=== PATIENT | female | born 1935 | race Caucasian/White ===

== ENCOUNTER 2017-06-14 17:37 | Emergency (ER) | payer MEDICARE, BC ==
[2017-06-14] MEDS ORDERED: NS 0.9% 1000 ML* 1,000 ML IV ONE (18:18)
--- NOTE | 2017-06-14 18:28 | ED ---
Back Pain - HPI Summary HPI Summary: Pt. is an 81 y.o female who presents to the ER for increased low back pain, lower abd. pain and constipation. Pt. states that her was recently moved to a [facility] and she believes she injured her low back caring for him about 2 weeks ago. Pt. saw her PCP and had an outpt. xray which showed degenerative changes. Pt. also notes she has not had a BM in 2 weeks. She has tried stool softeners and laxatives. She also notes increasing lower abd. pain as well as decreased urination. She notes that she has had a very poor appetite over the last several weeks. She denies fever, chills, CP, SOB, N/V, cough or recent sickness. She was rx tramadol by PCP several days ago which improves pain temporarily. She denies radicular pain to legs, numbness, tingling or weakness to legs. Symptoms are moderate in severity. - History of Current Complaint Stated Complaint: BACK PAIN Time Seen by Provider: 06/14/17 17:54 Hx Obtained From: Patient, Family/Extracorporeal Circulation Specialist Onset/Duration: Gradual Onset Onset/Duration: Started Weeks Ago Timing: Intermittent Back Pain Location: Is Discrete @ - Low back and does not radiate Severity Currently: Moderate Character: Sharp, Throbbing Aggravating Symptom(s): Movement Alleviating Symptom(s): Other - Ultram Associated Signs And Symptoms: Positive: Abdominal Pain - Risk Factors Cauda Equina Risk Factors: Negative Epidural Abscess Risk Factors: Negative - Allergies/Home Medications Allergies/Adverse Reactions: Allergies Allergy/AdvReac Type Severity Reaction Status Date / Time clarithromycin [From Biaxin] Allergy Unknown Verified 06/14/17 23:07 Reaction Details Home Medications: Home Medications Aspirin Low Dose CHEW TAB* [Aspirin Low Dose TAB*] 81 mg PO DAILY 06/14/17 [ History Confirmed 06/14/17] Budesonide/Formote 160/4.5(NF) [Symbicort 160/4.5 (NF)] 2 puff INH BID PRN 06/14 [History Confirmed 06/14/17] C,E,Zinc,Copper 11/Eqakd3m/Lut [Ocuvite Adult 50 Plus Softgel] 1 each PO DAILY 06/14/17 [History Confirmed 06/14/17] Diclofenac Sodium EC TAB* [Voltaren EC TAB*] 75 mg PO BID 06/14/17 [History Confirmed 06/14/17] Lisinopril/HCTZ 20/12.5(NF) [Zestoretic 20/12.5(NF)] 1 tab PO DAILY 06/14/17 [ History Confirmed 06/14/17] traMADol TAB* [Ultram*] 50 mg PO Q6HR PRN MDD 4 tablets 06/14/17 [History Confirmed 06/14/17] PMH/Surg Hx/FS Hx/Imm Hx Cardiovascular History: Reports: Hx Hypertension - ON MEDS Respiratory History: Reports: Hx Chronic Obstructive Pulmonary Disease (COPD), Other Respiratory Problems/Disorders - SOB WITH TOO MUCH EXERTION, STAIR CLIMBING, EXTRA WALKING Musculoskeletal History: Reports: Hx Arthritis - HANDS Sensory History: Reports: Hx Cataracts, Hx Contacts or Glasses - INST FOR GLASSES Denies: Hx Hearing Aid Opthamlomology History: Reports: Hx Cataracts, Hx Contacts or Glasses - INST FOR GLASSES - Surgical History Surgery Procedure, Year, and Place: 1963 [facility] [place]. [facility]. RIGHT CATARACT EXTRACTION TO THE LEFT EYE WITH AN IOL IMPLANT, [facility] Hx Anesthesia Reactions: No Infectious Disease History: Denies: Traveled Outside the [place] in Last 30 Days - Social History Substance Use Type: Reports: None Review of Systems Constitutional: Negative ENT: Negative Cardiovascular: Negative Respiratory: Negative Positive: Abdominal Pain, Other - Constipation Genitourinary: Other - Decreased urination Musculoskeletal: Other - Low back pain All Other Systems Reviewed And Are Negative: Yes Physical Exam Triage Information Reviewed: Yes Vital Signs Reviewed: Yes Appearance: Positive: Well-Appearing Skin: Positive: Warm, Dry Head/Face: Positive: Normal Head/Face Inspection Eyes: Positive: Normal Abdomen Description: Positive: CVA Tenderness (R), CVA Tenderness (L), Other: - Abd. is soft with diffuse tenderness to the lower quadrants and suprapubic region. No rebound tenderness or guarding. Musculoskeletal: Positive: Other - Low midline lumbar tenderness to palpation. Full strength in bilateral LEs with flexion and dorsiflexion of great toes. No neurosensory deficits. Neurological: Positive: Normal Psychiatric: Positive: Normal Diagnostics - Laboratory Result Diagrams: 06/14/17 18:48 06/14/17 22:37 Lab Statement: Any lab studies that have been ordered have been reviewed, and results considered in the medical decision making process. Back Pain Course/Dx - Course Course Of Treatment: Pt. presenting with ongoing low back pain as well as constipation and lower abd. pain. She is afebrile with stable vital signs. Pt. initially declines pain medication. Labs and imaging ordered. She has no neuro deficits on exam or evidence of cauda equina syndrome. CBC shows a leukocytosis of 15k. CMP shows low Na of 122. Pt. was given a L of NSS. CT scans shows acute vs subacute T12 compression fx, constipation with significant distended bowels, no obstruction, reading per radiology. On re-exam pt.'s pain has returned and she was given tylenol. Results were discussed. Family is concerned with pt's pain and her living alone. Given pain and low na I did speak with hospitalist for possible admission, Dr. Cardoso, who does not feel pt. meets inpt. criteria at this time. He recommends repeat BMP after fluids. Case was discussed with ER attending, Dr. Lowe. Plan will be to evacuate pt.'s bowels with soap suds enema and recheck sodium. Family is comfortable with this plan. Soap suds enema resulted in evacuation of large stool. Repeat sodium has improved to 126. Pt. dc home with family. Will need to call PCP tomorrow for a close apt. Advised to take an OTC stool softener while taking ultram. To return to ER if sxs change or worsen. - Diagnoses Differential Diagnosis/HQI/PQRI: Positive: Arthritis, Fracture, Herniated Disc, Strain, Other - Constipation, bowel obstruction, urolithiasis Provider Diagnoses: Constipation, Low back pain, Hyponatremia Provider Diagnoses: (Ruled Out): Hyponatremia syndrome Discharge - Sign-Out/Discharge Documenting (check all that apply): Discharge - Discharge Plan Condition: Stable Disposition: HOME Patient Education Materials: Constipation (ED), Hyponatremia (ED), Back Pain ( ED) Referrals: Daniela Knapp MD [Primary Care Provider] - Additional Instructions: Call PCP tomorrow for a close follow up appointment Continue home medications as directed Take an over the counter stool softener as directed Return to ER if symptoms change or worsen - Billing Disposition and Condition Condition: STABLE Disposition: HOME
[2017-06-14 19:02] LABS: ABS Basophils 0.1 10^3/ul (0-0.2); ABS Eosinophils 0.2 10^3/ul (0-0.6); ABS Lymphocytes 2.7 10^3/ul (1.0-4.8); ABS Monocytes 1.2 10^3/ul (0-0.8); ABS Neutrophils 11.7 10^3/ul (1.5-7.7); ABS Nucleated RBC 0 10^3/ul; Hematocrit 33 % (35-47); Hemoglobin 11.2 g/dl (12.0-16.0); Lymphocyte % 16.8 % (25-47); Mean Corpuscular HGB Conc 34 g/dl (31-36); Mean Corpuscular Hemoglobin 33 pg (27-31); Mean Corpuscular Volume 97 fL (80-97); Mean Platelet Volume 6.9 um3 (7.4-10.4); Nucleated Red Blood Cells % 0; Platelet Count 479 10^3/ul (150-450); Red Blood Count 3.41 10^6/ul (4.0-5.4); Red Cell Distribution Width 14 % (10.5-15); White Blood Count 15.8 10^3/ul (3.5-10.8)
[2017-06-14 19:19] LABS: EGFR Non-African American 73.2 (>60)
--- NOTE | 2017-06-14 19:57 | RAD ---
CLINICAL HISTORY: Constipation and back pain. Relevant surgical history includes appendectomy. COMPARISON: None TECHNIQUE: Noncontrast CT examination of the abdomen and pelvis from the lung bases through the initial tuberosities. Format of the lumbar spine were specifically created and independently reviewed. FINDINGS: VISUALIZED LUNG BASES: The visualized lungs exhibit diffuse centrilobular emphysematous changes. There is asymmetric elevation of the left hemidiaphragm. ABDOMEN AND PELVIS: Evaluation of the solid organs and vasculature is limited without intravenous contrast. The liver, spleen, pancreas and right adrenal gland are grossly normal in appearance. There is a fluid density cyst at the left adrenal gland measuring up to 3.4 cm in greatest cephalocaudal dimension. There is hyperattenuating material in the dependent gallbladder possibly representing stones and/or gallbladder sludge. The kidneys are normal in appearance without focal mass, calcification or signs of hydronephrosis. Evaluation of the gastrointestinal tract is limited without oral contrast. Consistent with the patient's surgical history, the appendix is not seen. The cecum is dilated up to 7 cm in diameter and is filled with gas and stool. There is gas and stool throughout the length of the colon though the more distal colon is not pathologically dilated. There are diverticula at the distal colon without focal inflammatory changes consistent with diverticulitis. There is no gross retroperitoneal or mesenteric lymphadenopathy. Along the left of midline posterior margin of the uterus there is a fluid focus measuring 2.1 x 4.2 cm in the axial plane either representing fluid in the cul-de-sac or adnexal structure. There is coarse atherosclerotic calcification of the abdominal aorta extending into the iliac arteries. Coarse calcification is seen at the bilateral common femoral arteries. There is likely high-grade stenosis at the left common femoral artery. There is evidence of healed fracture at the medial left pubic bone. Degenerative changes of the lower thoracic and lumbar spine include loss of intervertebral disc height. There is compression deformity of the T12 vertebral body with a small degree of retropulsion of fragments abutting the thecal sac (sagittal image 30 of 64). IMPRESSION: 1. The gas and stool-filled colon does not exhibit focal obstruction but the cecum is mildly dilated up to 7 cm in diameter. In the setting of chronic narcotic pain medicines conception bowel dysmotility should be considered. 2. Age indeterminate compression fracture of the T12 vertebral body with a small degree of retropulsion of fragments abutting the thecal sac. 3. Advanced calcified atherosclerosis of the visualized iliofemoral arteries. Please correlate to signs and symptoms of arterial insufficiency. 4. There is either fluid in the cul-de-sac or adnexal cyst at the left of midline adnexa. This is considered abnormal in a woman of this age. Superior characterization can be made with pelvic ultrasound on a nonemergent basis. 5. Chronic, degenerative and iatrogenic findings described in the body the report.
[2017-06-14] MEDS ORDERED: Acetaminophen TAB* 325 MG PO ONE (21:20)
[2017-06-14 23:12] LABS: EGFR Non-African American 74.4 (>60)
[2017-06-14 23:25] VITALS: BP 119/47
== END 2017-06-14 23:26 | disposition home or self-care (01) ==
LOC: ED 17:37
DX: M54.5 Low back pain (principal); K59.00 Constipation, unspecified; E87.1 Hypo-osmolality and hyponatremia; I10 Essential (primary) hypertension; Z79.899 Other long term (current) drug therapy
CPT/HCPCS: 36415; 72131; 74176; 80048; 80053; 85025; 96360; 99283

== ENCOUNTER 2017-07-09 11:22 | Inpatient (IN) | payer MEDICARE, BC ==
[2017-07-09] MEDS ORDERED: Acetaminophen TAB* 325 MG PO ONE (12:18)
[2017-07-09 12:58] LABS: ABS Basophils 0.1 10^3/ul (0-0.2); ABS Eosinophils 0 10^3/ul (0-0.6); ABS Lymphocytes 2.1 10^3/ul (1.0-4.8); ABS Monocytes 0.6 10^3/ul (0-0.8); ABS Neutrophils 7.8 10^3/ul (1.5-7.7); ABS Nucleated RBC 0 10^3/ul; Eosinophil % 0.4 % (0-6); Hematocrit 37 % (35-47); Hemoglobin 12.3 g/dl (12.0-16.0); Lymphocyte % 19.6 % (25-47); Mean Corpuscular HGB Conc 33 g/dl (31-36); Mean Corpuscular Hemoglobin 33 pg (27-31); Mean Corpuscular Volume 99 fL (80-97); Mean Platelet Volume 6.6 um3 (7.4-10.4); Nucleated Red Blood Cells % 0; Platelet Count 478 10^3/ul (150-450); Red Blood Count 3.75 10^6/ul (4.0-5.4); Red Cell Distribution Width 16 % (10.5-15); White Blood Count 10.7 10^3/ul (3.5-10.8)
[2017-07-09 13:03] LABS: INR 0.86 (0.77-1.02)
--- NOTE | 2017-07-09 13:09 | RAD ---
Indication: Back pain, right foot drop. CT of the lumbar spine was obtained in the axial plane. Sagittal and coronal reconstructed images were obtained. Comparison is made with previous exam dated June 14, 2017. There is diffuse osteopenia of the lumbar spine. The vertebral bodies from L1 through L5. This placement L1-L2, L2-L3 and L4-L5, unchanged from previous exam the visualized and maybe some spinal stenosis at L4-L5 osteophyte hypertrophy. No foraminal stenosis at L5 T12 vertebra there is vertebral plana noted with complete flattening the T12 vertebra. Retropulsed fragment noted on the thecal sac. This appears to be progressive since previous exam and this now occupies approximately 25% of spinal canal this level. IMPRESSION: Compression fracture T12 with retropulsed fragment as identified previously now occupies 25% spinal canal. This was present on June 14, 2017 although there may be increased retropulsion. Diffuse osteopenia is noted with suggestion of mild spinal stenosis at L4-L5.
[2017-07-09] MEDS ORDERED: Morphine VIAL* 4 MG/ML VIAL (1 ml vial) IV ONE ×2 (13:55→14:34)
[2017-07-09] MEDS ORDERED: Ondansetron INJ* 2 MG/ML VIAL ONE (14:17)
[2017-07-09] MEDS ORDERED: NS 0.9% 1000 ML*IV.FLUID IV ONE (14:20)
[2017-07-09] MEDS ORDERED: Ondansetron INJ* 2 MG/ML VIAL IV ONE (14:20)
--- NOTE | 2017-07-09 15:51 | ED ---
Bruce Guaman Stephanie, scribed for Ashley Walters MD on 07/09/17 at 1209 . Lower Extremity - HPI Summary HPI Summary: The pt is an 81 y/o F presenting to the ED with c/o R foot weakness that was noticed yesterday by her daughter who describes pt "dragging her right foot" on 07/08/17. Symptoms include lower back pain that began on May 29, 2017. The pt states she felt her upper back pop on May 29 2017 when she was helping care for her who is now at [facility]. The pt states her back pain initially was at the top of her back but has traveled to her lower back and feels it radiate to her LE bilaterally but more on the R LE. The pt walked yesterday and per daughter in law, the pts family is concerned the pt has a foot drop. Her pain is rated as a 10 in severity. Pt does not take O2 at home although it was prescribed by her PCP. O2 stat of 85 % on room air with good wave form, noted after pt was undressed for exam and moving on the stretcher on initial assessment. - History of Current Complaint Chief Complaint: EDBackInjuryPain Stated Complaint: BACK PAIN Time Seen by Provider: 07/09/17 11:32 Hx Obtained From: Patient, Family/Clinical Instructor - daughters (2), [id number] Mechanism Of Injury: Other - no known recent injury or fall. Pt was lifting/ assisting/moving her on 05/29/17 and felt a pop in her mid back. Onset of Pain: Immediate Onset/Duration: Worse Since - last night with new dragging of right foot Severity Initially: Moderate Severity Currently: Severe Pain Intensity: 9 Pain Scale Used: 0-10 Numeric Timing: Constant Location: Is Discrete @ - low lumbar pain, radiating to right leg Character Of Pain: Aching Associated Signs And Symptoms: Positive: Weakness - R foot Aggravating Factor(s): Nothing Alleviating Factor(s): Rest Able to Bear Weight: Yes - Allergies/Home Medications Allergies/Adverse Reactions: Allergies Allergy/AdvReac Type Severity Reaction Status Date / Time clarithromycin [From Biaxin] Allergy Unknown Verified 06/20/17 10:51 Reaction Details Home Medications: Home Medications Acetaminophen TAB* [Tylenol TAB*] 1,000 mg PO QID 07/09/17 [History Confirmed ] Ibuprofen TAB* [Advil TAB*] 400 mg PO QID 07/09/17 [History Confirmed 07/09/17] PMH/Surg Hx/FS Hx/Imm Hx Endocrine/Hematology History: Denies: Hx Diabetes Cardiovascular History: Reports: Hx Hypertension Denies: Hx Pacemaker/ICD Respiratory History: Reports: Hx Chronic Obstructive Pulmonary Disease (COPD) History: Denies: Hx Renal Disease Musculoskeletal History: Reports: Hx Arthritis - HANDS, Other Musculoskeletal History - compression fx T12 on CT 06/14/17 Sensory History: Reports: Hx Cataracts, Hx Contacts or Glasses - INST FOR GLASSES Denies: Hx Hearing Aid Opthamlomology History: Reports: Hx Cataracts, Hx Contacts or Glasses - INST FOR GLASSES Psychiatric History: Denies: Hx Panic Disorder - Surgical History Surgery Procedure, Year, and Place: 1962 [facility] [place]. 1969 [employer]. RIGHT CATARACT EXTRACTION TO THE LEFT EYE WITH AN IOL IMPLANT, [facility] Hx Anesthesia Reactions: No Infectious Disease History: No Infectious Disease History: Denies: Traveled Outside the US in Last 30 Days - Family History Known Family History: Positive: Other - breast cancer Negative: Renal Disease - Social History Occupation: Retired Lives: With Family Alcohol Use: None Substance Use Type: Reports: None Hx Tobacco Use: Yes Smoking Status (MU): Former Smoker Have You Smoked in the Last Year: No Review of Systems Negative: Fever Cardiovascular: Negative Respiratory: Negative Gastrointestinal: Negative Positive: other - difficulty starting her stream . Negative: incontinence Positive: Other - lower back pain Skin: Negative Positive: Weakness - R foot Psychological: Normal All Other Systems Reviewed And Are Negative: Yes Physical Exam - Summary Physical Exam Summary: Appearance: Ill-appearing, moderate pain distress, Well-nourished, SOB with movement Skin: Warm, purple discoloration of all 5 toes distally on L foot. Head: Normal Head/Face inspection Eyes: Conjunctiva clear ENT: Normal inspection Neck: Supple, no nodes, no JVD. Respiratory: Lungs clear, Normal breath sounds, no respiratory distress Cardio: RRR, No murmur, pulses normal, brisk capillary refill Abdomen: soft, nontender Bowel sounds: present Musculoskeletal: Strength Intact/ ROM intact. No calf tenderness. No edema. Superficial excoriation not representing spinal injection at R lumbar area, no bruising or step off. Spinal tenderness in lumbar area Psychological: Normal Neuro: Alert, muscle tone normal, no focal deficit, moves all extremities well. she has dorsiflexion 4/5 on R. Absent reflexes R knee and R ankle, sensation intact. Triage Information Reviewed: Yes Vital Signs On Initial Exam: Initial Vitals Temp Pulse Resp BP Pulse Ox 98.3 F 77 16 147/91 92 07/09/17 11:30 07/09/17 11:30 07/09/17 11:30 07/09/17 11:30 07/09/17 11:30 Vital Signs Reviewed: Yes Diagnostics - Vital Signs Vital Signs Temp Pulse Resp BP Pulse Ox 07/09/17 11:30 98.3 F 77 16 147/91 92 - Laboratory Lab Results: Lab Results 07/09/17 07/09/17 07/09/17 Range/Units 12:42 12:42 12:42 WBC 10.7 (3.5-10.8) 10^3/ul RBC 3.75 L (4.0-5.4) 10^6/ul Hgb 12.3 (12.0-16.0) g/dl Hct 37 (35-47) % MCV 99 H (80-97) fL MCH 33 H (27-31) pg MCHC 33 (31-36) g/dl RDW 16 H (10.5-15) % Plt Count 478 H (150-450) 10^3/ul MPV 6.6 L (7.4-10.4) um3 Neut % (Auto) 73.2 (38-83) % Lymph % (Auto) 19.6 L (25-47) % Bland % (Auto) 5.6 (0-7) % Eos % (Auto) 0.4 (0-6) % Baso % (Auto) 1.2 (0-2) % Absolute Neuts (auto) 7.8 H (1.5-7.7) 10^3/ul Absolute Lymphs (auto) 2.1 (1.0-4.8) 10^3/ul Absolute Monos (auto) 0.6 (0-0.8) 10^3/ul Absolute Eos (auto) 0 (0-0.6) 10^3/ul Absolute Basos (auto) 0.1 (0-0.2) 10^3/ul Absolute Nucleated RBC 0 10^3/ul Nucleated RBC % 0 INR (Anticoag Therapy) 0.86 (0.77-1.02) Sodium 133 L (139-145) mmol/L Potassium 4.5 (3.5-5.0) mmol/L Chloride 99 L (101-111) mmol/L Carbon Dioxide 25 (22-32) mmol/L Anion Gap 9 (2-11) mmol/L BUN 34 H (6-24) mg/dL Creatinine 1.04 H (0.51-0.95) mg/dL Est GFR ( Amer) 65.6 (>60) Est GFR (Non-Af Amer) 51.0 (>60) BUN/Creatinine Ratio 32.7 H (8-20) Glucose 105 H (70-100) mg/dL Calcium 9.5 (8.6-10.3) mg/dL Magnesium 2.2 (1.9-2.7) mg/dL Total Bilirubin 0.30 (0.2-1.0) mg/dL AST 16 (13-39) U/L ALT 12 (7-52) U/L Alkaline Phosphatase 121 H (34-104) U/L C-Reactive Protein 5.82 H (< 5.00) mg/L Total Protein 7.0 (6.4-8.9) g/dL Albumin 4.2 (3.2-5.2) g/dL Globulin 2.8 (2-4) g/dL Albumin/Globulin Ratio 1.5 (1-3) Result Diagrams: 07/09/17 12:42 07/09/17 12:42 Lab Statement: Any lab studies that have been ordered have been reviewed, and results considered in the medical decision making process. - CT Lumbar Spine CT Interpretation: Positive (See Comments) CT Interpretation Completed By: Radiologist - Compression fracture T12 with retropulsed fragment as identified previously now occupies 25% spinal canal. This was present on June 14, 2017 although there may be increased retropulsion. Diffuse osteopenia is noted with suggestion of mild spinal stenosis at L4-L5. ED physician has reviewed this report. Re-Evaluation - Re-Evaluation First Eval Re-Evaluation Time: 13:50 Change: Worse Comment: The pt is having difficulty urinating. ED physician spoke to Lyn ESPINOSA for Dr. Melara who recommends admission. Bladder scan shows 200cc. Pt straight cath'd for UA and bladder emptying. Lower Extremity Course/Dx - Course Course Of Treatment: At 12:15, ED physician spoke to Dr. Peterson about the care of the pt. ED physician spoke to Lyn ESPINOSA at 13:[address] Melara to get in touch with ED physician. At 13:50, ED physician spoke to Lyn ESPINOSA who recommends admission. Dr. Melara will complete evaluation and would consider pt for surgery if indicated. Pt does not meet criteria for emergency MRI at this time. Does not have symptoms of cauda equina syndrome or risk factors for epidural abscess. Dr. Mcguire accepts pt for admission 14:00. - Diagnoses Differential Diagnosis/HQI/PQRI: Positive: Sprain, Strain, Other - herniated disc Provider Diagnoses: T12 compression fracture, COPD exacerbation - Physician Notifications Discussed Care Of Patient With: Tj Melara - admit for pain control and further evaluation Time Discussed With Above Provider: 13:50 Instructed by Provider To: Admit As Inpatient Discharge - Sign-Out/Discharge Documenting (check all that apply): Discharge - admit - Discharge Plan Condition: Stable Disposition: ADMITTED TO [facility] - Billing Disposition and Condition Condition: STABLE Disposition: [facility] [place] The documentation as recorded by the Bruce austin Stephanie accurately reflects the service I personally performed and the decisions made by , Ashley Walters MD.
--- NOTE | 2017-07-09 16:06 | ADMNOTE ---
Subjective Date of Service: 07/09/17 Interval History: ADMISSION HISTORY AND PHYSICAL EXAM; Allergies Allergy/AdvReac Type Severity Reaction Status Date / Time clarithromycin [From Biaxin] Allergy Unknown Verified 06/20/17 10:51 Reaction Details Home Medications Medication Instructions Recorded Confirmed Type Albuterol HFA INHALER* [Proair HFA 2 puff PO DAILY PRN 07/11/12 07/09/17 History Inhaler*] Atenolol TAB* [Tenormin TAB*] 50 mg PO DAILY 07/11/12 07/09/17 History Aspirin 81 mg CHEW TAB* [Aspirin 81 mg PO DAILY 06/14/17 07/09/17 History Low Dose TAB*] Budesonide/Formote 160/4.5(NF) 2 puff INH BID PRN 06/14/17 07/09/17 History [Symbicort 160/4.5 (NF)] C,E,Zinc,Copper 11/Dbhcb7d/Lut 1 each PO DAILY 06/14/17 07/09/17 History [Ocuvite Adult 50 Plus Softgel] Diclofenac Sodium EC TAB* 75 mg PO BID 06/14/17 07/09/17 History [Voltaren EC TAB*] Lisinopril/HCTZ 20/12.5(NF) 1 tab PO DAILY 06/14/17 07/09/17 History [Zestoretic 20/12.5(NF)] traMADol TAB* [Ultram*] 50 mg PO Q6HR PRN MDD 4 tablets 06/14/17 07/09/17 History Acetaminophen TAB* [Tylenol TAB*] 1,000 mg PO QID 07/09/17 07/09/17 History Ibuprofen TAB* [Advil TAB*] 400 mg PO QID 07/09/17 07/09/17 History HPI: The patient injured her back in 05/2017 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 He was placed in [place]. She had a CT in 05/2017, and was given tramadol. She got very constipated from it. She had another injury last week and the pain was worse and radiated down her R leg. This AM the pain was level 10. Family History: Findings - F had leukemia, M age 83 [place]. Social History: Findings - Lives alone. Quit smoking 16 yrs ago. SDM is her daughter Daniela Winchester. No alcohol abuse. Past Medical History: Findings - 5 children. Appy, BL cataract surgery, thyroid surgery 50 yrs ago, bunion surgery. COPD, HTN. Review of Systems - Measurements Intake and Output: Intake and Output Last 24 Hours 07/07/17 07/08/17 07/09/17 07/10/17 06:59 06:59 06:59 06:59 Intake Total 999 Balance 999 Intake: IV Fluids 999 - Review of Systems Constitutional Symptoms: Negative: Weight Gain, Weight Loss, Weakness, Fatigue, Fever, Night Sweats, Unexplained Falls, Other Dermatology: Positive: Normal HEENT: Positive: Normal Eyes: Positive: Other - macular degeneration Thyroid: Positive: Other - hx thyroid surgery 50 yrs ago Pulmonary: Positive: COPD Cardiology: Positive: Normal Gastroenterology: Positive: Normal Genital - Urinary: Positive: Normal Musculoskeletal: Positive: Low Back Pain Hematologic/Lymphatic: Positive: Anemia Neurology: Positive: Change in Walking Psychiatry: Positive: Normal Allergic/Immunologic: Negative: Hx Anaphylaxis, Hx Angioedema, Hx Environmental, Hx Seasonal, Athsma, Hx HIV, Immunocompromise, Swollen Glands LymphNodes, Other Objective Vital Signs - 8 hr 07/09/17 07/09/17 07/09/17 14:30 14:56 15:32 Temperature 98.3 F 97.9 F Pulse Rate 72 72 79 Respiratory 16 18 Rate Blood Pressure 120/74 120/74 136/49 (mmHg) O2 Sat by Pulse 98 98 100 Oximetry Oxygen Devices in Use Now: Nasal Cannula Appearance: Alert, back brace in place. In fair spirits. Looks uncomfortable. Eyes: No Scleral Icterus Ears/Nose/Mouth/Throat: Clear Oropharnyx, Mucous Membranes Moist Respiratory: Symmetrical Chest Expansion and Respiratory Effort, - - diminished BS BL Cardiovascular: RRR, No Edema, - - 1-2/6 systolic murmur across precoridum Extremities: No Edema, No Clubbing, Cyanosis, - Skin: No Rash or Ulcers, No Nodules or Sclerosis, - Neurological: Alert and Oriented x 3, NL Sensation - mild R foot weakness Result Diagrams: 07/09/17 12:42 07/09/17 12:42 Additional Lab and Data: Lab Results 07/09/17 07/09/17 07/09/17 Range/Units 12:42 12:42 12:42 WBC 10.7 (3.5-10.8) 10^3/ul RBC 3.75 L (4.0-5.4) 10^6/ul Hgb 12.3 (12.0-16.0) g/dl Hct 37 (35-47) % MCV 99 H (80-97) fL MCH 33 H (27-31) pg MCHC 33 (31-36) g/dl RDW 16 H (10.5-15) % Plt Count 478 H (150-450) 10^3/ul MPV 6.6 L (7.4-10.4) um3 Neut % (Auto) 73.2 (38-83) % Lymph % (Auto) 19.6 L (25-47) % [place] % (Auto) 5.6 (0-7) % Eos % (Auto) 0.4 (0-6) % Baso % (Auto) 1.2 (0-2) % Absolute Neuts (auto) 7.8 H (1.5-7.7) 10^3/ul Absolute Lymphs (auto) 2.1 (1.0-4.8) 10^3/ul Absolute Monos (auto) 0.6 (0-0.8) 10^3/ul Absolute Eos (auto) 0 (0-0.6) 10^3/ul Absolute Basos (auto) 0.1 (0-0.2) 10^3/ul Absolute Nucleated RBC 0 10^3/ul Nucleated RBC % 0 INR (Anticoag Therapy) 0.86 (0.77-1.02) Sodium 133 L (139-145) mmol/L Potassium 4.5 (3.5-5.0) mmol/L Chloride 99 L (101-111) mmol/L Carbon Dioxide 25 (22-32) mmol/L Anion Gap 9 (2-11) mmol/L BUN 34 H (6-24) mg/dL Creatinine 1.04 H (0.51-0.95) mg/dL Est GFR ( Amer) 65.6 (>60) Est GFR (Non-Af Amer) 51.0 (>60) BUN/Creatinine Ratio 32.7 H (8-20) Glucose 105 H (70-100) mg/dL Calcium 9.5 (8.6-10.3) mg/dL Magnesium 2.2 (1.9-2.7) mg/dL Total Bilirubin 0.30 (0.2-1.0) mg/dL AST 16 (13-39) U/L ALT 12 (7-52) U/L Alkaline Phosphatase 121 H (34-104) U/L C-Reactive Protein 5.82 H (< 5.00) mg/L Total Protein 7.0 (6.4-8.9) g/dL Albumin 4.2 (3.2-5.2) g/dL Globulin 2.8 (2-4) g/dL Albumin/Globulin Ratio 1.5 (1-3) Assess/Plan/Problems-Billing Assessment: - Patient Problems (1) COPD (chronic obstructive pulmonary disease) Current Visit: Yes Status: Acute Code(s): J44.9 - CHRONIC OBSTRUCTIVE PULMONARY DISEASE, UNSPECIFIED SNOMED Code(s): 13441222 Comment: Moderate clinically. Duoneb PRN. (2) HTN (hypertension) Current Visit: Yes Status: Acute Code(s): I10 - ESSENTIAL (PRIMARY) HYPERTENSION SNOMED Code(s): 20903870 Comment: Hold thiazide due to hyponatremia. Smaller dose of lisinopril ordered. (3) Hyponatremia Current Visit: Yes Status: Acute Code(s): E87.1 - HYPO-OSMOLALITY AND HYPONATREMIA SNOMED Code(s): 75503675 Comment: Hold thiazide. Should correct itself in a few days. (4) Heart murmur Current Visit: Yes Status: Acute Code(s): R01.1 - CARDIAC MURMUR, UNSPECIFIED SNOMED Code(s): 20624788 Comment: Pt had echo at [place] 6-9 months ago. Order to request record from Dr. Knapp's office entered. (5) T12 vertebral fracture Current Visit: Yes Status: Acute Code(s): S22.089A - UNSP FRACTURE OF T11- T12 VERTEBRA, INIT FOR CLOS FX SNOMED Code(s): 014040717 Comment: Management per Dr. Melara. Vit D level ordered. (6) Constipation Current Visit: Yes Status: Acute Code(s): K59.00 - CONSTIPATION, UNSPECIFIED SNOMED Code(s): 80220352 Comment: She became very constipated when tramadol was prescribed for her back pain. I am doubling her home polyethylene glycol dose.
[2017-07-09] MEDS ORDERED: Albuterol/Ipratropium NEB.SOL* Albuterol 2.5 MG/Ipratropium 0.5 MG 3 ML INH PRN (16:30)
--- NOTE | 2017-07-09 16:40 | CONSULT ---
Consult Consult: Neurosurgery Consult Date of Admission: 07/09/17 Reason for Consult: T12 compression fracture Admitting Provider: Dr. Mcguire HPI: This is an 81 year old female with past medical history significant for HTN and COPD who presented to the [facility] [place] [facility] today with complaint of low back pain for the past 1.5 months and recent onset right foot weakness. History is obtained from the patient and her two daughters who are present with her in the room. 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 Approximately 6 weeks ago, she was helping him reposition in bed when she felt a popping sensation in her back. She states that she immediately experienced back pain in the mid to low back. She tried to treat this conservatively, continuing daily activities and duties. However, the pain continued to worsen with associated numbness/tingling in the bilateral posterior thighs down to the lower legs with standing. She was using a walker for ambulation and was still unable to move around well without severe pain. Her daughter reports that she had become much more sedentary in the past several weeks and had missed appointments because movement and riding in the car worsened the back pain. She then presented to the [facility] [place] [facility] for evaluation on when a CT lumbar spine was obtained showing T12 compression fracture. She was also quite constipated at the time so she was treated for the constipation and recommended to follow up with PCP for further evaluation and treatment of the T12 fracture. However, she states that she did not immediately follow up with her PCP and continued to try to manage the pain on her own. She reports developing weakness of the right lower extremity within the past several days. The patient's daughter noticed this weakness today when she was trying to ambulate with the walker. She called the PCP clinician oncology who recommended she be evaluated in the ED. Currently she complains of mid to low back pain, worse with movement in bed, sitting up and walking. The numbness/tingling with standing has improved. She also reports weakness of the foot and inability to walk without dragging the right foot. She also reports difficulty with starting urination for the past 6 weeks or more but does have the sensation to urinate and has not been incontinent. She has had the episode of constipation in May which has resolved. Bowel movements are regular with assistance from morning diet. She does note eating less recently secondary to pain with movement to get up and prepare meals; appetite remains good. She has dyspnea with exertion related to COPD but does not use prescribed home oxygen and has been noncompliant recently with COPD medications. Denies headache, neck pain, vision changes, difficulty swallowing, changes in speech, hearing loss, chest pain, abdominal pain, blood in stool or urine, nausea and vomiting. Denies weakness of the left lower extremity. Denies numbness, tingling, weakness and pain in the bilateral upper extremities. No recent falls or illnesses. Home Medications: 1. Albuterol HFA INHALER* [Proair HFA Inhaler*] 2 puff PO DAILY PRN 07/11/12 [ History Confirmed 07/09/17] 2. Atenolol TAB* [Tenormin TAB*] 50 mg PO DAILY 07/11/12 [History Confirmed ] 3. Aspirin 81 mg CHEW TAB* [Aspirin Low Dose TAB*] 81 mg PO DAILY 06/14/17 [ History Confirmed 07/09/17] 4. Budesonide/Formote 160/4.5(NF) [Symbicort 160/4.5 (NF)] 2 puff INH BID PRN [History Confirmed 07/09/17] 5. C,E,Zinc,Copper 11/Bhitg7t/Lut [Ocuvite Adult 50 Plus Softgel] 1 each PO DAILY 06/14/17 [History Confirmed 07/09/17] 6. Diclofenac Sodium EC TAB* [Voltaren EC TAB*] 75 mg PO BID 06/14/17 [History Confirmed 07/09/17] 7. Lisinopril/HCTZ 20/12.5(NF) [Zestoretic 20/12.5(NF)] 1 tab PO DAILY 06/14/17 [History Confirmed 07/09/17] 8. traMADol TAB* [Ultram*] 50 mg PO Q6HR PRN MDD 4 tablets 06/14/17 [History Confirmed 07/09/17] 9. Acetaminophen TAB* [Tylenol TAB*] 1,000 mg PO QID 07/09/17 [History Confirmed 07/09/17] 10. Ibuprofen TAB* [Advil TAB*] 400 mg PO QID 07/09/17 [History Confirmed ] Allergies: 1. Clarithromycin Past Medical History: 1. Hypertension 2. COPD Past Surgical History: 1. Appendectomy 1963 2. Thyroidectomy 1969 3. Cataract surgery 2012 4. Bunionectomy Social History: This patient lives at home alone, her is a resident at [facility]. She is a former smoker, quit 16 years ago. Family History: Family history of leukemia and breast cancer. ROS: Full ROS completed. Pertinent findings stated in HPI and all others negative. Physical Exam: Vital Signs: Temp Pulse Resp BP Pulse Ox 97.9 F 79 18 136/49 100 07/09/17 15:32 07/09/17 15:32 07/09/17 17:15 07/09/17 15:32 07/09/17 15:32 General: Alert and oriented. Laying spine in bed. No distress. HEENT: Head is normocephalic and atraumatic. PERRL, EOMI, sclerae anicteric. Gross hearing intact. Moist mucus membranes. Neck: Neck is supple and symmetric. Nontender to palpation. CV: Radial pulses 2+ and equal. Pedal pulses 1+ and equal. Lungs: Breathing is mildly labored after rolling in bed. O2 nasal cannula in place. Abdomen: The abdomen is mildly rounded. Normoactive bowel sounds. Abdomen is soft, nontender and nondistended. Neuro: Speech is clear and patient answers questions appropriately. CN II-XII intact. Coordination finger to nose intact. No pronator drift. Strength 5/5 in bilateral upper extremities. Hoffmans negative. Strength in left lower extremity is 5/5. Back pain with strength testing of LLE and RLE. Right lower extremity strength: Dorsiflexion 4-/5, plantarflexion 4-/5, inversion 5/5, eversion 1/5, EHL 3/5, hip flexor 5/5, quadricep 5/5. Sensation to light touch intact throughout. Imagin. CT lumbar spine 06/14/17 shows T12 compression fracture with mild retropulsion. 2. CT lumbar spine on 07/09/17 shows T12 compression fracture with retropulsion, worse compared to previous study. Assessment: 81 yo female with progressively worsening T12 compression fracture and severe low back pain. Right foot weakness appreciated on exam. She will require further work up with MRI of the lumbar spine for possible surgical treatment. This case was discussed and plan formulated with Dr. Melara. Plan was also discussed with the patient, her daughters and Dr. Mcguire. Plan: 1. Admit to Hospital Medicine. 2. MRI lumbar spine without contrast in the morning. 3. Pain management. 4. TLSO brace placed, to be worn when up out of bed. 5. Out of bed to chair activity.
[2017-07-09 16:56] LABS: Urine Appearance Cloudy; Urine Blood Negative (Negative); Urine Color Yellow; Urine Ketones Trace (Negative); Urine Protein Negative (Negative); Urine Specific Gravity 1.011 (1.010-1.030); Urine Urobilinogen Negative (Negative)
[2017-07-09] MEDS: oxyCODONE TAB* 5 MG TAB PO PRN (17:15)
[2017-07-09] MEDS: Polyethylene Glycol 3350* 17 GM PACKET PO SCH (23:00)
[2017-07-09] MEDS: Diclofenac Sodium EC TAB* 25 MG PO SCH (23:00)
[2017-07-10] MEDS: Aspirin 81 mg CHEW TAB* 81 MG TAB.CHEW PO SCH (07:53)
[2017-07-10] MEDS: Polyethylene Glycol 3350* 17 GM PACKET PO SCH ×2 (07:53→21:45)
[2017-07-10] MEDS: Diclofenac Sodium EC TAB* 25 MG PO SCH ×2 (07:54→21:57)
[2017-07-10] MEDS: oxyCODONE TAB* 5 MG TAB PO PRN ×4 (07:54→21:57)
[2017-07-10] MEDS: Atenolol TAB* 50 MG PO SCH (07:54)
[2017-07-10] MEDS ORDERED: Lisinopril TAB* 5 MG PO SCH (09:00)
[2017-07-10] MEDS ORDERED: LORazepam INJ* 2 MG/ML 1 ML VIAL IV PUSH PRN (09:25)
--- NOTE | 2017-07-10 11:43 | RAD ---
HISTORY: T12 compression fracture COMPARISONS: CT dated July 09, 2017 TECHNIQUE: The following sequences were obtained of the lumbar spine: Sagittal and axial T1- and T2-weighted images, coronal T2-weighted images, and sagittal STIR images. FINDINGS: The study is limited by patient motion artifact. SPINAL CORD, CONUS, AND CAUDA EQUINA: The visualized spinal cord, conus, and cauda equina are normal in caliber, position, and signal intensity. ALIGNMENT: There is a mild scoliotic curvature of the spine. VERTEBRAL BODIES: There is vertebra plana with significant osseous retropulsion of the posterior cortex of T12. This results in moderate narrowing of the central canal at this level. JOINTS: There is uncovertebral and facet osteoarthritis. MUSCULATURE: There is moderate fatty infiltration. INTERVERTEBRAL DISCS: There is diffuse loss of intervertebral disc height and T2 signal throughout the spine. AXIAL IMAGES: T10-T11: There is no significant neural foraminal narrowing or central canal stenosis. T11-T12: There is no significant neural foraminal narrowing or central canal stenosis. T12-L1: As noted above, there is moderate narrowing of central canal secondary to retropulsion of the posterior cortex of T12. There is moderate bilateral neuroforaminal narrowing. L1-L2: There is bilateral facet hypertrophy. There is no significant neural foraminal narrowing or central canal stenosis. L2-L3: There is bilateral facet hypertrophy. There is mild bilateral neural foraminal narrowing. There is no significant central canal stenosis. L3-L4: There is broad-based disc bulge at bilateral facet hypertrophy. There is moderate right and mild left neural foraminal area. There is mild narrowing of the central canal. L4-L5: There is broad-based disc bulge with ligamentous and facet hypertrophy. There is mild bilateral neural foraminal narrowing. There is moderate narrowing of the central canal. L5-S1: There is bilateral facet hypertrophy. There is mild disc bulge. There is mild left neural larynx. There is no significant central canal stenosis. SOFT TISSUES: The visualized soft tissues of the abdomen are unremarkable. 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 AGAIN NOTED IS A COMPRESSION FRACTURE OF T12 WITH RETROPULSION OF THE POSTERIOR CORTEX RESULTING IN MODERATE NARROWING OF THE CENTRAL CANAL. 2. DEGENERATIVE DISC DISEASE AND OSTEOARTHRITIS. 3. THERE IS MODERATE NARROWING OF THE CENTRAL CANAL AT L4-L5 WITH MILD NARROWING AT L3-L4. 4. THERE IS MULTILEVEL NEURAL FORAMINAL NARROWING DESCRIBED ABOVE.
--- NOTE | 2017-07-10 14:09 | PN ---
Subjective Date of Service: 07/10/17 Interval History: Patient complains of no pain at rest but right sided radicular pain with movement up to a 10/10. Patient denies dysuria, CP, SOB, N/V, abdominal pain, diarrhea, Constipation, rash, dizziness, palpitations, or other pain. Patient states that she has been updated on the plan for surgery on Monday and she is in agreement. Family History: Findings - F had leukemia, M age 83 [place]. Social History: Findings - Lives alone. Quit smoking 16 yrs ago. SDM is her daughter Daniela Winchester. No alcohol abuse. Past Medical History: Findings - 5 children. Appy, BL cataract surgery, thyroid surgery 50 yrs ago, bunion surgery. COPD, HTN. Objective Active Medications: Albuterol/Ipratropium (Duoneb (Albuterol 2.5 Mg/Ipratropium 0.5 Mg)) 1 neb INH Q4H PRN PRN Reason: SOB/WHEEZING Aspirin (Aspirin 81 Mg Chew Tab*) 81 mg PO DAILY [facility] Last Admin: 07/10/17 07:53 Dose: 81 mg Atenolol (Tenormin Tab*) 50 mg PO DAILY [facility] Last Admin: 07/10/17 07:54 Dose: 50 mg Diclofenac Sodium (Voltaren Ec Tab*) 75 mg PO BID [facility] Last Admin: 07/10/17 07:54 Dose: 75 mg Lisinopril (Prinivil Tab*) 5 mg PO DAILY [facility] Last Admin: 07/10/17 07:54 Dose: 5 mg Mometasone Furoate/Formoterol Fumar (Dulera 200/5 Mdi*) 2 puff INH BID PRN; Protocol PRN Reason: SOB/WHEEZING Oxycodone HCl (Roxycodone Tab*) 5 mg PO Q3H PRN PRN Reason: PAIN - SEVERE Last Admin: 07/10/17 12:34 Dose: 5 mg Polyethylene Glycol/Electrolytes (Miralax*) 17 gm PO 0800,2100 [facility] Last Admin: 07/10/17 07:53 Dose: 17 gm Tramadol HCl (Ultram*) 50 mg PO Q6HR PRN PRN Reason: PAIN Vital Signs - 8 hr 07/10/17 07/10/17 07/10/17 07:54 08:00 10:24 Temperature 98.0 F Pulse Rate 83 Respiratory 20 22 22 Rate Blood Pressure 117/48 (mmHg) O2 Sat by Pulse 94 Oximetry 07/10/17 07/10/17 07/10/17 10:26 11:49 12:34 Temperature Pulse Rate Respiratory 22 18 18 Rate Blood Pressure (mmHg) O2 Sat by Pulse Oximetry Oxygen Devices in Use Now: Nasal Cannula - 1L Appearance: Patient is an 81yo who appears stated age and is sitting in the bed in NAD. Eyes: No Scleral Icterus, PERRLA Ears/Nose/Mouth/Throat: NL Teeth, Lips, Gums, Clear Oropharnyx, Mucous Membranes Moist Neck: NL Appearance and Movements; NL JVP, Trachea Midline Respiratory: Symmetrical Chest Expansion and Respiratory Effort, Clear to Auscultation Cardiovascular: RRR, No Edema, - - Grade 2/6 systolic ejection murmur heard best at LUSB. Abdominal: NL Sounds; No Tenderness; No Distention, No Hepatosplenomegaly Lymphatic: No Cervical Adenopathy Extremities: No Edema, No Clubbing, Cyanosis Skin: No Rash or Ulcers, No Nodules or Sclerosis Neurological: Alert and Oriented x 3, NL Sensation, - - Absent reflexes in Right sided patellar tendon. 2/5 strength with foot dorsiflexion. Intact sensation to light touch. Result Diagrams: 07/09/17 12:42 07/09/17 12:42 Additional Lab and Data: Lab Results Assess/Plan/Problems-Billing Assessment: Patient is an 81yo female with a H mcrae HTN, COPD and known T12 compression fracture who is admitted with radicular symptoms and is planned to have surgery on Wednesday 07/12. - Patient Problems (1) T12 vertebral fracture Current Visit: Yes Status: Acute Code(s): S22.089A - UNSP FRACTURE OF T11- T12 VERTEBRA, INIT FOR CLOS FX SNOMED Code(s): 831878857 Comment: Management per Dr. Melara. Vit D level low normal. Plan for surgery on 07/12. Patient is medically optimized for surgery. Patient is capable of at least 4 METs outpatient when not limited by pain. Patient has COPD but is not in excerbation. Patient has a RCRI of 0 indicating a .4% risk of major cardiac event. Patient had an echo last year the report from which has been reviewed and shows mild aortic stenosis, preserved EF and no other significant findings. (2) COPD (chronic obstructive pulmonary disease) Current Visit: Yes Status: Acute Code(s): J44.9 - CHRONIC OBSTRUCTIVE PULMONARY DISEASE, UNSPECIFIED SNOMED Code(s): 36348226 Comment: Moderate clinically. Duoneb PRN. Continue Dulera. (3) Constipation Current Visit: Yes Status: Acute Code(s): K59.00 - CONSTIPATION, UNSPECIFIED SNOMED Code(s): 96676118 Comment: Related to opiate use. Continue Miralax and colace. (4) HTN (hypertension) Current Visit: Yes Status: Acute Code(s): I10 - ESSENTIAL (PRIMARY) HYPERTENSION SNOMED Code(s): 51879154 Comment: Hold thiazide due to hyponatremia. Continue lisinopril and atenolol. (5) Heart murmur Current Visit: Yes Status: Acute Code(s): R01.1 - CARDIAC MURMUR, UNSPECIFIED SNOMED Code(s): 27975881 Comment: Patient had echo at [facility] 6-9 months ago. Report shows mild aortic stenosis and preserved EF. (6) Hyponatremia Current Visit: Yes Status: Acute Code(s): E87.1 - HYPO-OSMOLALITY AND HYPONATREMIA SNOMED Code(s): 68633799 Comment: Improved from previous readings. Hold thiazide. (7) DVT prophylaxis Current Visit: Yes Status: Acute Code(s): TYM6426 - SNOMED Code(s): 685763486 (8) Full code status Current Visit: Yes Status: Acute Code(s): Z78.9 - OTHER SPECIFIED HEALTH STATUS SNOMED Code(s): 720243578 Status and Disposition: Admitted inpatient.
[2017-07-10] MEDS: cefTRIAXone VIAL(*) 500 MG in NS 0.9% 50 ML* 50 ML IVPB SCH (15:30)
[2017-07-10] MEDS: Docusate CAP* 100 MG PO SCH (21:46)
[2017-07-11] MEDS: oxyCODONE TAB* 5 MG TAB PO PRN ×3 (01:57→20:22)
[2017-07-11] MEDS ORDERED: NS 0.9% 500 ML* 500 ML IV ONE (04:45)
[2017-07-11 06:06] LABS: EGFR Non-African American 44.5 (>60)
[2017-07-11] MEDS: Atenolol TAB* 50 MG PO SCH (09:19)
[2017-07-11] MEDS: Polyethylene Glycol 3350* 17 GM PACKET PO SCH ×2 (09:45→20:21)
[2017-07-11] MEDS: Diclofenac Sodium EC TAB* 25 MG PO SCH ×2 (09:46→20:22)
[2017-07-11] MEDS: Aspirin 81 mg CHEW TAB* 81 MG TAB.CHEW PO SCH (09:46)
[2017-07-11] MEDS: Docusate CAP* 100 MG PO SCH ×2 (09:46→20:25)
[2017-07-11] MEDS: NS 0.9% 1000 ML* 1,000 ML IV SCH ×2 (10:16→20:27)
[2017-07-11] MEDS: cefTRIAXone VIAL(*) 500 MG in NS 0.9% 50 ML* 50 ML IVPB SCH (15:36)
--- NOTE | 2017-07-11 16:00 | PN ---
Subjective Date of Service: 07/11/17 Interval History: Patient has consistent pain and weakness, no loss of bowel or bladder control or numbness. Patient denies urinary symptoms, F/C, N/V, abdominal pain, diarrhea , CP, SOB, or other pain. Patient's was admitted to hospice overnight and she is very upset about this but would not like to see him. Family History: Findings - F had leukemia, M age 83 [place]. Social History: Findings - Lives alone. Quit smoking 16 yrs ago. SDM is her daughter Daniela Winchester. No alcohol abuse. Past Medical History: Findings - 5 children. Appy, BL cataract surgery, thyroid surgery 50 yrs ago, bunion surgery. COPD, HTN. Objective Active Medications: Albuterol/Ipratropium (Duoneb (Albuterol 2.5 Mg/Ipratropium 0.5 Mg)) 1 neb INH Q4H PRN PRN Reason: SOB/WHEEZING Aspirin (Aspirin 81 Mg Chew Tab*) 81 mg PO DAILY [facility] Last Admin: 07/11/17 09:46 Dose: 81 mg Atenolol (Tenormin Tab*) 50 mg PO DAILY [facility] Last Admin: 07/11/17 09:19 Dose: Not Given Diclofenac Sodium (Voltaren Ec Tab*) 75 mg PO BID [facility] Last Admin: 07/11/17 09:46 Dose: 75 mg Docusate Sodium (Colace Cap*) 200 mg PO BID [facility] Last Admin: 07/11/17 09:46 Dose: 200 mg Ceftriaxone Sodium 500 mg/ (Sodium Chloride) 50 mls @ 200 mls/hr IVPB Q24H [facility] Last Admin: 07/11/17 15:36 Dose: 200 mls/hr Sodium Chloride (Ns 0.9% 1000 Ml*) 1,000 mls @ 100 mls/hr IV PER RATE [facility] Last Admin: 07/11/17 10:16 Dose: 100 mls/hr Mometasone Furoate/Formoterol Fumar (Dulera 200/5 Mdi*) 2 puff INH BID PRN; Protocol PRN Reason: SOB/WHEEZING Oxycodone HCl (Roxycodone Tab*) 5 mg PO Q3H PRN PRN Reason: PAIN - SEVERE Last Admin: 07/11/17 10:20 Dose: 5 mg Polyethylene Glycol/Electrolytes (Miralax*) 17 gm PO 0800,2100 [facility] Last Admin: 07/11/17 09:45 Dose: 17 gm Tramadol HCl (Ultram*) 50 mg PO Q6HR PRN PRN Reason: PAIN Vital Signs - 8 hr 07/11/17 07/11/17 07/11/17 09:30 10:20 11:22 Temperature 97.6 F Pulse Rate 80 Respiratory 16 18 18 Rate Blood Pressure 128/41 (mmHg) O2 Sat by Pulse 92 Oximetry 07/11/17 07/11/17 12:33 15:26 Temperature 98.3 F Pulse Rate 80 Respiratory 16 18 Rate Blood Pressure 106/37 (mmHg) O2 Sat by Pulse 96 Oximetry Oxygen Devices in Use Now: Nasal Cannula Appearance: Patient is an 81yo female who appears stated age and is sitting in the bed in NAD. Eyes: No Scleral Icterus, PERRLA Ears/Nose/Mouth/Throat: NL Teeth, Lips, Gums, Clear Oropharnyx, Mucous Membranes Moist Neck: NL Appearance and Movements; NL JVP, Trachea Midline Respiratory: Symmetrical Chest Expansion and Respiratory Effort, Clear to Auscultation, - - Diminished Cardiovascular: NL Sounds; No Murmurs; No JVD, RRR, No Edema Abdominal: NL Sounds; No Tenderness; No Distention, No Hepatosplenomegaly Lymphatic: No Cervical Adenopathy Extremities: No Edema, No Clubbing, Cyanosis Skin: No Rash or Ulcers, No Nodules or Sclerosis Neurological: Alert and Oriented x 3, NL Sensation, - - Decreased dorsiflexion of left foot. Result Diagrams: 07/09/17 12:42 07/11/17 05:11 Additional Lab and Data: Lab Results Assess/Plan/Problems-Billing Assessment: Patient is an 81yo female with a H mcrae HTN, COPD and known T12 compression fracture who is admitted with radicular symptoms and is planned to have surgery on Wednesday 07/12. - Patient Problems (1) T12 vertebral fracture Current Visit: Yes Status: Acute Code(s): S22.089A - UNSP FRACTURE OF T11- T12 VERTEBRA, INIT FOR CLOS FX SNOMED Code(s): 328752624 Comment: Management per Dr. Melara. Vit D level low normal. Plan for surgery on 07/12. Patient is medically optimized for surgery. Patient is capable of at least 4 METs outpatient when not limited by pain. Patient has COPD but is not in excerbation. Patient has a RCRI of 0 indicating a .4% risk of major cardiac event. Patient had an echo last year the report from which has been reviewed and shows mild aortic stenosis, preserved EF and no other significant findings. (2) COPD (chronic obstructive pulmonary disease) Current Visit: Yes Status: Acute Code(s): J44.9 - CHRONIC OBSTRUCTIVE PULMONARY DISEASE, UNSPECIFIED SNOMED Code(s): 66313983 Comment: Moderate clinically. Duoneb PRN. Continue Dulera. (3) Constipation Current Visit: Yes Status: Acute Code(s): K59.00 - CONSTIPATION, UNSPECIFIED SNOMED Code(s): 76171488 Comment: Related to opiate use. Continue Miralax and colace. (4) HTN (hypertension) Current Visit: Yes Status: Acute Code(s): I10 - ESSENTIAL (PRIMARY) HYPERTENSION SNOMED Code(s): 07815525 Comment: Hold thiazide due to hyponatremia. Continue lisinopril and atenolol. (5) Heart murmur Current Visit: Yes Status: Acute Code(s): R01.1 - CARDIAC MURMUR, UNSPECIFIED SNOMED Code(s): 85073103 Comment: Patient had echo at [place] 6-9 months ago. Report shows mild aortic stenosis and preserved EF. (6) Acute kidney injury Current Visit: Yes Status: Acute Code(s): N17.9 - ACUTE KIDNEY FAILURE, UNSPECIFIED SNOMED Code(s): 65211264 Comment: Cret increased, likely due to dehydration, FeNa pending. Fluids given, will monitor. Likely cause of hyperkalemia. (7) Hyponatremia Current Visit: Yes Status: Acute Code(s): E87.1 - HYPO-OSMOLALITY AND HYPONATREMIA SNOMED Code(s): 91758771 Comment: Improved from previous readings. Hold thiazide. (8) Hyperkalemia Current Visit: Yes Status: Acute Code(s): E87.5 - HYPERKALEMIA SNOMED Code (s): 17546329 Comment: Slightly elevated Potassium. No EKG changes. Give fluids and monitor. (9) DVT prophylaxis Current Visit: Yes Status: Acute Code(s): SPP9341 - SNOMED Code(s): 572545305 (10) Full code status Current Visit: Yes Status: Acute Code(s): Z78.9 - OTHER SPECIFIED HEALTH STATUS SNOMED Code(s): 034024385 Status and Disposition: Admitted inpatient.
--- NOTE | 2017-07-11 17:50 | PN ---
Progress Note - Progress Note Date of Service: 07/11/17 SOAP: Subjective: []Cont to c/o back pain,rt foot weakness Has been cleared for surgery in AM Pre op discussion held with patient and family Objective: []Mod weakness EHL RT Otherwise neuro intact Assessment: []Stable awaiting surgery Plan: []A proposed plan of thoracolumbar fusion for her T12 fracture with decompression of canal was explained in detail. Plan is instrumentation at T10, T11,L1 and L2 followed by decompression at T12. We also discussed severe stenosis at L4-5 which will be addressed by decompressive laminectomy at that level
[2017-07-12] MEDS: oxyCODONE TAB* 5 MG TAB PO PRN ×3 (02:44→20:23)
[2017-07-12 06:18] LABS: ABS Basophils 0.1 10^3/ul (0-0.2); ABS Eosinophils 0.1 10^3/ul (0-0.6); ABS Monocytes 0.5 10^3/ul (0-0.8); ABS Nucleated RBC 0 10^3/ul; Eosinophil % 0.8 % (0-6); Hematocrit 33 % (35-47); Lymphocyte % 30.3 % (25-47); Mean Corpuscular HGB Conc 33 g/dl (31-36); Mean Corpuscular Hemoglobin 33 pg (27-31); Mean Corpuscular Volume 99 fL (80-97); Mean Platelet Volume 6.3 um3 (7.4-10.4); Nucleated Red Blood Cells % 0; Platelet Count 399 10^3/ul (150-450); Red Blood Count 3.33 10^6/ul (4.0-5.4); Red Cell Distribution Width 16 % (10.5-15); White Blood Count 6.7 10^3/ul (3.5-10.8)
[2017-07-12 06:32] LABS: EGFR Non-African American 87.7 (>60)
[2017-07-12] MEDS ORDERED: NS 0.9% 1000 ML* 1,000 ML IV SCH (06:54)
[2017-07-12] MEDS ORDERED: Buffered Lidocaine 0.9% SYRIN* 5 ML/SYR SYRINGE ONE (06:55)
[2017-07-12] MEDS: Atenolol TAB* 50 MG PO SCH (07:12)
[2017-07-12] MEDS ORDERED: Propofol* 10 MG/ML 20 ML BTL IV PUSH ONE (07:17)
[2017-07-12] MEDS ORDERED: Lidocaine 1% MPF wEPI 200,000* 30 ML SDV ONE (07:17)
[2017-07-12] MEDS ORDERED: fentaNYL* 50 MCG/ML 2 ML VIAL (100 MCG VIAL) ONE ×4 (07:17→14:06)
[2017-07-12] MEDS ORDERED: Atracurium* 10 MG/ML 10 ML VIAL ONE ×2 (07:17→10:16)
[2017-07-12] MEDS ORDERED: Bacitracin IV* 50,000 UNITS INJ ONE (07:18)
[2017-07-12] MEDS ORDERED: Thrombin 5,000 UNITS* 1 APPLIC KIT - topical use - TOPICAL ONE (07:18)
[2017-07-12] MEDS ORDERED: Midazolam* 1 MG/ML 2 ML VIAL (2 MG) ONE (07:18)
[2017-07-12] MEDS ORDERED: ceFAZolin 2 GM PREMIX (*) 2 GM/50 ML BAG IVPB ONE (07:29)
[2017-07-12] MEDS ORDERED: Phenylephrine INJ* 10 MG/ML 1 ML VIAL (10 MG) ONE (10:26)
[2017-07-12] MEDS ORDERED: DiMENhydriNATE IV* 50 MG/ML VIAL IV PUSH PRN (11:12)
[2017-07-12] MEDS ORDERED: Ondansetron INJ* 2 MG/ML VIAL IV PRN (11:12)
[2017-07-12] MEDS ORDERED: Naloxone* 0.4 MG/ML 1 ML VIAL IV PRN ×2 (11:12)
[2017-07-12] MEDS ORDERED: HYDROmorphone INJ* 1 MG/ML CARPUJECT SYRINGE IV PRN (11:12)
--- NOTE | 2017-07-12 11:34 | RAD ---
HISTORY: Lumbar fusion COMPARISONS: CT dated July 09, 2017 VIEWS: 1 , portable intraoperative view of the lumbar spine at 7:59 AM FINDINGS: Single portable view of the spine performed intraoperatively during spinal surgery at 7:59 AM demonstrates a metallic probe opposite of L3-L4 counting from L5 as the last lumbar type vertebral body. Again noted is a compression deformity of T12. IMPRESSION: LIMITED PORTABLE VIEW OF THE SPINE FOR LOCALIZATION DURING SPINAL SURGERY.
--- NOTE | 2017-07-12 11:37 | RAD ---
INDICATION: Lumbar fusion COMPARISONS: CT dated July 09, 2014 TECHNIQUE:: Cone beam fluoroscopy was provided for a surgical procedure. Total fluoroscopy time is: 4.[address] DI is 26.17 FINDINGS: Intraoperative images demonstrate a spinal fusion with pedicle screws at T10-T11 and L1-L2. IMPRESSION: FLUOROSCOPY WAS PROVIDED FOR A SURGICAL PROCEDURE CPT II Codes: G9500
[2017-07-12] MEDS ORDERED: Ondansetron INJ* 2 MG/ML VIAL ONE ×2 (12:08→14:39)
[2017-07-12] MEDS: fentaNYL* 50 MCG/ML 2 ML VIAL (100 MCG VIAL) IV PRN ×4 (12:48→14:36)
[2017-07-12] MEDS ORDERED: Glycopyrrolate IV* 0.2 MG/ML 1 ML VIAL ONE ×2 (12:54→14:55)
[2017-07-12] MEDS ORDERED: Neostigmine Methylsulfate* 1 MG/ML 10 ML VIAL (1 mg/ml) ONE (12:54)
[2017-07-12] MEDS: Polyethylene Glycol 3350* 17 GM PACKET PO SCH ×2 (13:45→19:43)
[2017-07-12] MEDS: Aspirin 81 mg CHEW TAB* 81 MG TAB.CHEW PO SCH (13:45)
[2017-07-12] MEDS: Diclofenac Sodium EC TAB* 25 MG PO SCH (13:46)
[2017-07-12] MEDS: Docusate CAP* 100 MG PO SCH ×2 (13:46→19:41)
[2017-07-12] MEDS ORDERED: Dexamethasone IV* 4 MG/ML 1 ML (4 MG) ONE (13:49)
[2017-07-12] MEDS ORDERED: Ketorolac INJ* 30 MG/ML 1 ML VIAL ONE (14:39)
[2017-07-12] MEDS ORDERED: Succinylcholine* 20 MG/ML 10 ML VIAL ONE (15:00)
[2017-07-12 15:16] LABS: ABS Basophils 0.1 10^3/ul (0-0.2); ABS Eosinophils 0 10^3/ul (0-0.6); ABS Lymphocytes 0.9 10^3/ul (1.0-4.8); ABS Monocytes 0.4 10^3/ul (0-0.8); ABS Neutrophils 12.7 10^3/ul (1.5-7.7); ABS Nucleated RBC 0 10^3/ul; Eosinophil % 0.1 % (0-6); Hematocrit 27 % (35-47); Hemoglobin 8.9 g/dl (12.0-16.0); Lymphocyte % 6.5 % (25-47); Mean Corpuscular HGB Conc 33 g/dl (31-36); Mean Corpuscular Hemoglobin 33 pg (27-31); Mean Corpuscular Volume 101 fL (80-97); Mean Platelet Volume 6.9 um3 (7.4-10.4); Nucleated Red Blood Cells % 0.1; Platelet Count 374 10^3/ul (150-450); Red Blood Count 2.72 10^6/ul (4.0-5.4); Red Cell Distribution Width 16 % (10.5-15); White Blood Count 14.2 10^3/ul (3.5-10.8)
--- NOTE | 2017-07-12 15:34 | PN ---
Subjective Date of Service: 07/12/17 Interval History: Patient examined in the postoperative period, patient is confused and thinking that she can't move her legs even though she is moving her legs and feet. Patient complains of pain in her back. Patient denies CP, SOB or other complaints but is unable to participate substantially in ROS. Patient's EBL estimated at 1,000ml by surgeon. Being transfused at this time. Family History: Findings - F had leukemia, M age 83 [place]. Social History: Findings - Lives alone. Quit smoking 16 yrs ago. SDM is her daughter Daniela Winchester. No alcohol abuse. Past Medical History: Findings - 5 children. Appy, BL cataract surgery, thyroid surgery 50 yrs ago, bunion surgery. COPD, HTN. Objective Active Medications: Albuterol/Ipratropium (Duoneb (Albuterol 2.5 Mg/Ipratropium 0.5 Mg)) 1 neb INH Q4H PRN PRN Reason: SOB/WHEEZING Diclofenac Sodium (Voltaren Ec Tab*) 75 mg PO BID [facility] Last Admin: 07/12/17 13:46 Dose: Not Given Dimenhydrinate (Dramamine Iv*) 12.5 mg IV PUSH ONCE PRN PRN Reason: NAUSEA/VOMITING Stop: 07/12/17 17:00 Docusate Sodium (Colace Cap*) 200 mg PO BID [facility] Last Admin: 07/12/17 13:46 Dose: Not Given Fentanyl Citrate (Fentanyl*) 25 mcg IV Q2M PRN PRN Reason: PAIN - MODERATE Stop: 07/12/17 17:00 Last Admin: 07/12/17 14:36 Dose: 25 mcg Hydromorphone HCl (Dilaudid Injic*) 0.1 mg IV Q5M PRN PRN Reason: PAIN - SEVERE Stop: 07/12/17 17:00 Ceftriaxone Sodium 500 mg/ (Sodium Chloride) 50 mls @ 200 mls/hr IVPB Q24H [facility] Last Admin: 07/11/17 15:36 Dose: 200 mls/hr Lactated Ringer's (Lactated Ringers 1000 Ml Bag*) 1,000 mls @ 75 mls/hr IV PER RATE [facility] Mometasone Furoate/Formoterol Fumar (Dulera 200/5 Mdi*) 2 puff INH BID PRN; Protocol PRN Reason: SOB/WHEEZING Morphine Sulfate (Morphine Vial*) 2 mg IV Q4H PRN PRN Reason: PAIN - MILD Naloxone HCl (Narcan*) 0.08 mg IV Q2M PRN PRN Reason: severe induced resp depression Stop: 07/12/17 17:00 Ondansetron HCl (Zofran Inj*) 4 mg IV ONCE PRN PRN Reason: NAUSEA/VOMITING Stop: 07/12/17 17:00 Oxycodone HCl (Roxycodone Tab*) 5 mg PO Q3H PRN PRN Reason: PAIN - SEVERE Last Admin: 07/12/17 02:44 Dose: 5 mg Polyethylene Glycol/Electrolytes (Miralax*) 17 gm PO 0800,2100 [facility] Last Admin: 07/12/17 13:45 Dose: Not Given Tramadol HCl (Ultram*) 50 mg PO Q6HR PRN PRN Reason: PAIN Vital Signs - 8 hr 07/12/17 07/12/17 07/12/17 12:31 12:35 12:40 Temperature 98.2 F Pulse Rate 68 71 70 Respiratory 18 16 16 Rate Blood Pressure 104/46 99/44 91/44 (mmHg) O2 Sat by Pulse 100 99 99 Oximetry 07/12/17 07/12/17 07/12/17 12:45 12:48 12:59 Temperature Pulse Rate 74 Respiratory 16 20 16 Rate Blood Pressure 102/54 (mmHg) O2 Sat by Pulse 99 Oximetry 07/12/17 07/12/17 07/12/17 13:00 13:15 13:20 Temperature 97.5 F Pulse Rate 70 67 68 Respiratory 16 16 16 Rate Blood Pressure 111/52 102/44 99/45 (mmHg) O2 Sat by Pulse 99 99 99 Oximetry 07/12/17 07/12/17 07/12/17 13:25 13:26 13:30 Temperature 98.6 F Pulse Rate 65 63 68 Respiratory 16 9 18 Rate Blood Pressure 79/56 79/56 111/52 (mmHg) O2 Sat by Pulse 99 100 100 Oximetry 07/12/17 07/12/17 07/12/17 13:45 14:00 14:26 Temperature 97.7 F 97.5 F Pulse Rate 63 66 69 Respiratory 16 18 16 Rate Blood Pressure 128/40 104/58 128/58 (mmHg) O2 Sat by Pulse 100 100 100 Oximetry 07/12/17 07/12/1718 14:35 14:36 14:38 Temperature Pulse Rate 69 73 Respiratory 18 16 16 Rate Blood Pressure 118/58 126/55 (mmHg) O2 Sat by Pulse 100 100 Oximetry 07/12/17 14:40 Temperature 98.4 F Pulse Rate 68 Respiratory 16 Rate Blood Pressure 126/55 (mmHg) O2 Sat by Pulse 100 Oximetry Oxygen Devices in Use Now: Nasal Cannula Appearance: Patient is an 81yo pale female who appears stated age and is laying in the bed in mild distress. Eyes: No Scleral Icterus, PERRLA Ears/Nose/Mouth/Throat: NL Teeth, Lips, Gums, Clear Oropharnyx, Mucous Membranes Moist, - - Pale mucosa. Neck: NL Appearance and Movements; NL JVP, Trachea Midline Respiratory: Symmetrical Chest Expansion and Respiratory Effort, Clear to Auscultation Cardiovascular: NL Sounds; No Murmurs; No JVD, RRR, No Edema Abdominal: NL Sounds; No Tenderness; No Distention, No Hepatosplenomegaly Lymphatic: No Cervical Adenopathy Extremities: No Edema, No Clubbing, Cyanosis, - - Legs cold to touch. Skin: No Rash or Ulcers, No Nodules or Sclerosis, - - Surgical incision not visualized. 2 drains producing bloody output. Neurological: - - Confused. Moving legs, unable to particpate in neuro exam. Result Diagrams: 07/12/17 13:12 07/12/17 06:01 Additional Lab and Data: Lab Results Microbiology and Other Data: Microbiology 07/09/17 16:40 Urine Culture - Final Urine Assess/Plan/Problems-Billing Assessment: Patient is an 81yo female with a [facility] mcrae HTN, COPD and known T12 compression fracture who is admitted with radicular symptoms and is planned to have surgery on Wednesday 07/12. - Patient Problems (1) Acute blood loss anemia Current Visit: Yes Status: Acute Code(s): D62 - ACUTE POSTHEMORRHAGIC ANEMIA SNOMED Code(s): 197308750 Comment: Patient had an estimate of 1,000ml EBL in surgery, patient is being transfused 2u PRBC with recheck of hemoglobin afterward. Cold extremities, Antihypertensives held, BP stable. Continue with Fluids, Insert second IV. Monitor closely. Hold Aspirin. (2) T12 vertebral fracture Current Visit: Yes Status: Acute Code(s): S22.089A - UNSP FRACTURE OF T11- T12 VERTEBRA, INIT FOR CLOS FX SNOMED Code(s): 054202708 Comment: Management per Dr. Melara. Vit D level low normal. Plan for surgery on 07/12. Patient is medically optimized for surgery. Patient is capable of at least 4 METs outpatient when not limited by pain. Patient has COPD but is not in excerbation. Patient has a RCRI of 0 indicating a .4% risk of major cardiac event. Patient had an echo last year the report from which has been reviewed and shows mild aortic stenosis, preserved EF and no other significant findings. (3) COPD (chronic obstructive pulmonary disease) Current Visit: Yes Status: Acute Code(s): J44.9 - CHRONIC OBSTRUCTIVE PULMONARY DISEASE, UNSPECIFIED SNOMED Code(s): 12815407 Comment: Moderate clinically. Duoneb PRN. Continue Dulera. (4) Constipation Current Visit: Yes Status: Acute Code(s): K59.00 - CONSTIPATION, UNSPECIFIED SNOMED Code(s): 58146518 Comment: Related to opiate use. Continue Miralax and colace. (5) HTN (hypertension) Current Visit: Yes Status: Acute Code(s): I10 - ESSENTIAL (PRIMARY) HYPERTENSION SNOMED Code(s): 69018818 Comment: Hold antihypertensives in setting of Acute Blood Loss anemia. (6) Heart murmur Current Visit: Yes Status: Acute Code(s): R01.1 - CARDIAC MURMUR, UNSPECIFIED SNOMED Code(s): 19386094 Comment: Patient had echo at [place] 6-9 months ago. Report shows mild aortic stenosis and preserved EF. (7) Acute kidney injury Current Visit: Yes Status: Acute Code(s): N17.9 - ACUTE KIDNEY FAILURE, UNSPECIFIED SNOMED Code(s): 48531901 Comment: Resolved with fluids. (8) Hyponatremia Current Visit: Yes Status: Acute Code(s): E87.1 - HYPO-OSMOLALITY AND HYPONATREMIA SNOMED Code(s): 29812215 Comment: Improved from previous readings. Hold thiazide. (9) Hyperkalemia Current Visit: Yes Status: Acute Code(s): E87.5 - HYPERKALEMIA SNOMED Code (s): 94692706 Comment: Resolved. (10) DVT prophylaxis Current Visit: Yes Status: Acute Code(s): PAL5563 - SNOMED Code(s): 709232882 Comment: SCDs with surgery and acute blood loss anemia. (11) Full code status Current Visit: Yes Status: Acute Code(s): Z78.9 - OTHER SPECIFIED HEALTH STATUS SNOMED Code(s): 958754939 Status and Disposition: Admitted inpatient.
[2017-07-12] MEDS: cefTRIAXone VIAL(*) 500 MG in NS 0.9% 50 ML* 50 ML IVPB SCH (15:40)
[2017-07-12] MEDS: Morphine VIAL* 4 MG/ML VIAL (1 ml vial) IV PRN ×2 (16:09→20:24)
[2017-07-12] MEDS: traMADol TAB* 50 MG PO PRN (19:41)
[2017-07-12 20:28] LABS: Hematocrit 29 % (35-47); Hemoglobin 9.5 g/dl (12.0-16.0)
[2017-07-12] MEDS ORDERED: NS 0.9% 500 ML* 500 ML IV ONE (21:16)
[2017-07-13] MEDS: oxyCODONE TAB* 5 MG TAB PO PRN ×5 (01:08→20:15)
[2017-07-13] MEDS: Morphine VIAL* 4 MG/ML VIAL (1 ml vial) IV PRN ×2 (01:09→09:39)
[2017-07-13 06:01] LABS: ABS Basophils 0.1 10^3/ul (0-0.2); ABS Eosinophils 0 10^3/ul (0-0.6); ABS Lymphocytes 1.8 10^3/ul (1.0-4.8); ABS Monocytes 1.2 10^3/ul (0-0.8); ABS Neutrophils 7.6 10^3/ul (1.5-7.7); ABS Nucleated RBC 0 10^3/ul; Eosinophil % 0.3 % (0-6); Hematocrit 26 % (35-47); Hemoglobin 9.2 g/dl (12.0-16.0); Lymphocyte % 16.5 % (25-47); Mean Corpuscular HGB Conc 35 g/dl (31-36); Mean Corpuscular Hemoglobin 34 pg (27-31); Mean Corpuscular Volume 96 fL (80-97); Mean Platelet Volume 6.4 um3 (7.4-10.4); Nucleated Red Blood Cells % 0.1; Platelet Count 265 10^3/ul (150-450); Red Blood Count 2.73 10^6/ul (4.0-5.4); Red Cell Distribution Width 17 % (10.5-15); White Blood Count 10.7 10^3/ul (3.5-10.8)
[2017-07-13 06:17] LABS: EGFR Non-African American 79.2 (>60)
--- NOTE | 2017-07-13 07:49 | PN ---
Progress Note - Progress Note Date of Service: 07/13/17 SOAP: Subjective: []C/O incisional pain Leg seems better Would like to get Rich out HCT 26 this am Objective: []Mild weakness evertors rt foot Drain output slowing Assessment: [] Satis post op course Plan: []D/C Rich Up with PT Recheck HCT in AM
[2017-07-13] MEDS: Docusate CAP* 100 MG PO SCH ×2 (08:33→20:15)
[2017-07-13] MEDS: Polyethylene Glycol 3350* 17 GM PACKET PO SCH ×2 (08:33→20:15)
--- NOTE | 2017-07-13 12:36 | PN ---
Subjective Date of Service: 07/13/17 Interval History: Ms. Judge complains of pain in her low ribs bilaterally which she attributes to lying on her stomach during surgery. She also reports back pain. She denies other complaint including chest pain, SOB, cough, nausea, or abdominal pain. On repeat exam, patient reports that she is feeling much better and is visiting with family. Objective Active Medications: Albuterol/Ipratropium (Duoneb (Albuterol 2.5 Mg/Ipratropium 0.5 Mg)) 1 neb INH Q4H PRN Cyclobenzaprine HCl (Flexeril Tab*) 10 mg PO BID PRN Docusate Sodium (Colace Cap*) 200 mg PO BID [facility] Ceftriaxone Sodium 500 mg/ (Sodium Chloride) 50 mls @ 200 mls/hr IVPB Q24H [facility] Lactated Ringer's (Lactated Ringers 1000 Ml Bag*) 1,000 mls @ 75 mls/hr IV PER RATE [facility] Mometasone Furoate/Formoterol Fumar (Dulera 200/5 Mdi*) 2 puff INH BID PRN; Protocol Morphine Sulfate (Morphine Vial*) 2 mg IV Q4H PRN Oxycodone HCl (Roxycodone Tab*) 5 mg PO Q3H PRN Polyethylene Glycol/Electrolytes (Miralax*) 17 gm PO 0800,2100 [facility] Tramadol HCl (Ultram*) 50 mg PO Q6HR PRN Vital Signs: Temp Pulse Resp BP Pulse Ox 99.0 F 77 16 137/43 92 07/13/17 07:38 07/13/17 07:38 07/13/17 11:00 07/13/17 07:38 07/13/17 09:15 Oxygen Devices in Use Now: Nasal Cannula Appearance: Female lying in bed in NAD Eyes: No Scleral Icterus Ears/Nose/Mouth/Throat: Mucous Membranes Moist Neck: Trachea Midline Respiratory: Symmetrical Chest Expansion and Respiratory Effort, Clear to Auscultation Cardiovascular: NL Sounds; No Murmurs; No JVD, No Edema Abdominal: NL Sounds; No Tenderness; No Distention Lymphatic: No Cervical Adenopathy Extremities: No Edema Skin: No Rash or Ulcers Neurological: Alert and Oriented x 3, NL Muscle Strength and Tone Nutrition: Taking PO's Result Diagrams: 07/13/17 05:39 07/13/17 05:39 Additional Lab and Data: . Microbiology and Other Data: . Assess/Plan/Problems-Billing Assessment: Ms. Judge is an 81yo female with a PMH mcrae HTN, COPD and known T12 compression fracture who is admitted with radicular symptoms and is now s/p surgery on Wednesday 07/12 with post-op anemia. - Patient Problems (1) Acute blood loss anemia Comment: - Hgb stable after 2 units PRBC yesterday. BP stable. - Patient had an estimate of 1,000ml EBL in surgery. (2) T12 vertebral fracture Comment: - Management per Dr. Melara, s/p surgery 07/12/17. - Rich d/c'd today. - Pain meds prn. - Continue PT. - Suspect pain in bilateral ribs due to positioning during surgery. Patient only requiring 1 L NC, denies other complaint. (3) Acute kidney injury Comment: - Resolved with fluids. (4) COPD (chronic obstructive pulmonary disease) Code(s): J44.9 - CHRONIC OBSTRUCTIVE PULMONARY DISEASE, UNSPECIFIED SNOMED Code(s): 03289110 Comment: - Asymptomatic. - Duoneb PRN. Continue Dulera. (5) Constipation Comment: - Related to opiate use. Continue Miralax and colace. (6) HTN (hypertension) Comment: - SBP 100-130s. - Hold lisinopril/hctz in setting of acute blood loss anemia. (7) Heart murmur Comment: - Patient had echo at [place] 6-9 months ago. - Report shows mild aortic stenosis and preserved EF. (8) Hyperkalemia Comment: - K 5.3 today, monitor. (9) Hyponatremia Comment: - Na 130, monitor. Hold thiazide. (10) UTI (urinary tract infection) Comment: - Mildly positive UA on 07/10 but culture suggested contanimation. - Repeat UA now, continue ceftriaxone till results reviewed. (11) DVT prophylaxis Comment: SCDs with surgery and acute blood loss anemia. (12) Full code status Comment: Status and Disposition: Admitted inpatient.
[2017-07-13] MEDS: ALPRAZolam TAB* 0.5 MG PO PRN (17:49)
[2017-07-13] MEDS: cefTRIAXone VIAL(*) 500 MG in NS 0.9% 50 ML* 50 ML IVPB SCH (17:50)
[2017-07-13 18:38] LABS: Urine Appearance Clear; Urine Blood 2+ (Negative); Urine Color Yellow; Urine Ketones Trace (Negative); Urine Protein Negative (Negative); Urine Specific Gravity 1.005 (1.010-1.030); Urine Urobilinogen Negative (Negative)
[2017-07-14] MEDS: ALPRAZolam TAB* 0.5 MG PO PRN ×2 (02:49→22:23)
[2017-07-14] MEDS: oxyCODONE TAB* 5 MG TAB PO PRN ×5 (02:49→22:22)
[2017-07-14 05:28] LABS: Hematocrit 24 % (35-47); Hemoglobin 8.2 g/dl (12.0-16.0); Mean Corpuscular HGB Conc 34 g/dl (31-36); Mean Corpuscular Hemoglobin 33 pg (27-31); Mean Corpuscular Volume 97 fL (80-97); Mean Platelet Volume 6.9 um3 (7.4-10.4); Platelet Count 252 10^3/ul (150-450); Red Blood Count 2.48 10^6/ul (4.0-5.4); Red Cell Distribution Width 16 % (10.5-15); White Blood Count 12.7 10^3/ul (3.5-10.8)
[2017-07-14 05:41] LABS: EGFR Non-African American 96.2 (>60)
--- NOTE | 2017-07-14 07:44 | PN ---
Progress Note - Progress Note Date of Service: 07/14/17 SOAP: Subjective: []Patient C/O chest pain this AM Very depressed C/O incisional pain Objective: []Drain still with moderate amount Right evertor weakness persists Otherwise intact Assessment: []Very slow progress Plan: []Discussed likely need for SNF prior to rehab with daughter
[2017-07-14] MEDS: Polyethylene Glycol 3350* 17 GM PACKET PO SCH ×2 (08:14→20:42)
[2017-07-14] MEDS: Docusate CAP* 100 MG PO SCH ×2 (08:14→20:42)
[2017-07-14] MEDS ORDERED: Iohexol 350* (CONTRAST) 500 ML MDV IV ONE (08:40)
--- NOTE | 2017-07-14 10:33 | RAD ---
HISTORY: Ileus COMPARISONS: CT dated June 14, 2017 VIEWS: Frontal supine and left lateral decubitus views of the abdomen. FINDINGS: BOWEL: There is a nonspecific bowel gas pattern. There is diffuse gaseous distention of the small bowel and colon, without dilatation. CALCULI: There are no abnormal calculi. BONES AND SOFT TISSUES: There is postsurgical change to the spine. OTHER FINDINGS: There is no appreciable free intracranial gas. Surgical drains are noted. There is no subphrenic gas. IMPRESSION: DIFFUSE GASEOUS DISTENTION OF THE SMALL BOWEL AND LARGE BOWEL, SUGGESTIVE OF ILEUS. RECOMMEND CONTINUED ATTENTION ON FOLLOW-UP.
[2017-07-14] MEDS: Metoprolol Tartrate TAB* 25 MG PO SCH ×2 (10:42→20:42)
--- NOTE | 2017-07-14 10:45 | RAD ---
HISTORY: Chest pain COMPARISONS: July 04, 2004 TECHNIQUE: Multiple contiguous axial CT scans of the chest were obtained after the administration of nonionic intravenous contrast, timed to the pulmonary arterial phase of contrast enhancement.. Coronal and sagittal multiplanar reformations are also submitted for review. FINDINGS: Evaluation limited by suboptimal contrast opacification. The attenuation of the main pulmonary artery is less than 200 Hounsfield units which is not meet the diagnostic criteria for detection of pulmonary embolism. NECK AND THYROID: The left thyroid is not visualized. There is a calcified nodule of the right thyroid CHEST WALL: There is no lower cervical, axillary, or supraclavicular lymphadenopathy by size criteria. HEART AND PERICARDIUM: Coronary and valvular cardiac calcifications are noted. AORTA AND PULMONARY VASCULATURE: Evaluation limited by suboptimal contrast opacification. The attenuation of the main pulmonary artery does not meet the diagnostic criteria for detection of pulmonary emboli. Within the limitations of the study, there is no large or proximal filling defect to suggest pulmonary embolus. There is atherosclerosis of the thoracic aorta. MEDIASTINUM: There is no mediastinal lymphadenopathy by size criteria. SNEHAL: There is no hilar lymphadenopathy by size criteria. AIRWAY AND ESOPHAGUS: The airway is unremarkable, without endobronchial filling defect. The esophagus is grossly normal. LUNG PARENCHYMA: There is diffuse centrilobular emphysematous change. There is compressive atelectasis of the left lung base. PLEURA: There is elevation of left hemidiaphragm. There are small bilateral pleural effusions.. UPPER ABDOMEN: Gallstones are noted. BONES AND SOFT TISSUES: There is post surgical change to the spine. OTHER: None. IMPRESSION: 1. EVALUATION IS LIMITED BY SUBOPTIMAL CONTRAST OPACIFICATION. THIS STUDY DOES NOT MEET THE DIAGNOSTIC CRITERIA FOR THE DETECTION OF PULMONARY EMBOLISM. WITHIN THE LIMITATIONS OF THE STUDY, THERE IS NO LARGE OR PROXIMAL PULMONARY ARTERIAL FILLING DEFECT. 2. ATHEROSCLEROSIS. 3. 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 4. SMALL BILATERAL PLEURAL EFFUSIONS. 5. EMPHYSEMA.
--- NOTE | 2017-07-14 13:41 | PN ---
Subjective Date of Service: 07/14/17 Interval History: Ms. Judge reports that she is having lots of pain in her abdomen and feels distended and gassy. She had chest discomfort this morning but has had none since. She denies nausea. She has not had a bowel movement today. She is reluctant to get out of bed due to her discomfort. Objective Active Medications: Albuterol/Ipratropium (Duoneb (Albuterol 2.5 Mg/Ipratropium 0.5 Mg)) 1 neb INH Q4H PRN Alprazolam (Xanax Tab*) 0.5 mg PO BID PRN Cyclobenzaprine HCl (Flexeril Tab*) 10 mg PO BID PRN Docusate Sodium (Colace Cap*) 200 mg PO BID CONNIE Lactated Ringer's (Lactated Ringers 1000 Ml Bag*) 1,000 mls @ 75 mls/hr IV PER RATE CONNIE Metoprolol Tartrate (Lopressor Tab*) 12.5 mg PO Q12HR CONNIE Mometasone Furoate/Formoterol Fumar (Dulera 200/5 Mdi*) 2 puff INH BID PRN; Protocol Morphine Sulfate (Morphine Vial*) 2 mg IV Q4H PRN Oxycodone HCl (Roxycodone Tab*) 5 mg PO Q3H PRN Oxycodone HCl (Roxycodone Tab*) 10 mg PO Q4H PRN Polyethylene Glycol/Electrolytes (Miralax*) 17 gm PO 0800,2100 CONNIE Tramadol HCl (Ultram*) 50 mg PO Q6HR PRN Vital Signs: Temp Pulse Resp BP Pulse Ox 98.1 F 95 16 120/37 94 07/14/17 12:03 07/14/17 12:03 07/14/17 12:42 07/14/17 12:03 07/14/17 12:03 Oxygen Devices in Use Now: Nasal Cannula Appearance: Female sitting up in bed appears uncomfortable, moaning at times Eyes: No Scleral Icterus Ears/Nose/Mouth/Throat: Mucous Membranes Moist Neck: Trachea Midline Respiratory: Symmetrical Chest Expansion and Respiratory Effort, Clear to Auscultation Cardiovascular: NL Sounds; No Murmurs; No JVD, No Edema Abdominal: NL Sounds; No Tenderness; No Distention Lymphatic: No Cervical Adenopathy Extremities: No Edema Skin: No Rash or Ulcers Neurological: Alert and Oriented x 3, NL Muscle Strength and Tone Nutrition: Taking PO's Result Diagrams: 07/14/17 05:05 07/14/17 05:05 Additional Lab and Data: . Microbiology and Other Data: . Assess/Plan/Problems-Billing Assessment: Ms. Judge is an 81yo female with a H mcrae HTN, COPD and known T12 compression fracture who is admitted with radicular symptoms and is now s/p surgery on Wednesday 07/12 with post-op anemia. - Patient Problems (1) Chest pain Comment: - Trops peaked at 0.11. No evidence of ischemia on EKG. - Echo only showing worsening aortic stenosis, from mild to moderate. Suspect demand ischemia in setting of surgery, pain, and aortic stenosis. - Antiplatelets and coagulants not indicated due to recent surgery. - Metoprolol and atorvastatin started. - Plan to transfuse one unit PRBC to promote perfusion. - CTA chest suboptimal but no evidence of PE. (2) Acute blood loss anemia Comment: - Hgb down to 8.2, plan to transfuse x 1 more unit given chest pain and elevated troponin. - Patient had an estimate of 1,000ml EBL in surgery. (3) Ileus Comment: - Diffuse distention noted on abd xray. - Encourage ambulation, clear liquids only. (4) T12 vertebral fracture Comment: - Management per Dr. Melara, s/p surgery 07/12/17. - Rich replaced today for urinary retention. - Pain meds prn. - Continue PT. (5) Acute kidney injury Comment: - Resolved with fluids. (6) COPD (chronic obstructive pulmonary disease) Comment: - Asymptomatic. - Duoneb PRN. Continue Dulera. (7) HTN (hypertension) Comment: - SBP 100-130s. - Hold lisinopril/hctz in setting of acute blood loss anemia. (8) Hyperkalemia Comment: - Resolved. (9) Hyponatremia Comment: - Na 128, monitor. Hold thiazide. (10) UTI (urinary tract infection) Comment: - Mildly positive UA on 07/10 but culture suggested contanimation. - Repeat UA negative, stop ceftriaxone. (11) DVT prophylaxis Comment: - SCDs only with surgery and acute blood loss anemia. (12) Full code status Comment: Status and Disposition: Admitted inpatient.
--- NOTE | 2017-07-14 14:05 | ECHO ---
Patient: GAUTAM JIANG [facility] Rec#: [id number] : 1935 Date: 07/14/2017 Age: 81y Height: 165.1 cm / 65.0 in Weight: 76.2 kg / 167.9 lbs Sex: F BSA: 1.84 Room#: 340 Admit Date#: 07/09/2017 Type: Inpatient Referring: Zohreh Turner NP Reading: Jacobo Loaiza MD [employer]os[employer] Engineer: Alexandria Mathur RDCS CC: Gautam Knapp MD Transthoracic Echocardiogram Indication: Chest Pain BP: 140/48 HR: 94 Rhythm: NSR Findings History: COPD, HTN, compression fracture T12 05/2017, and murmur. Technical Comments: The study quality is fair. The study is technically limited due to the patient's history of COPD. Completed at 1230. Left Ventricle: The left ventricular chamber size is decreased. Moderate concentric left ventricular hypertrophy is observed. Global left ventricular wall motion and contractility are within normal limits. The left ventricle appears hyperdynamic. The estimated ejection fraction is greater than 65%. Abnormal left ventricular diastolic function is observed. Abnormal left ventricular diastolic filling is observed, consistent with impaired relaxation. Left Atrium: The left atrium is moderately dilated. Right Ventricle: The right ventricle wall thickness is mildly increased. The right ventricular cavity size is normal. The right ventricular global systolic function is normal. Right Atrium: The right atrium is moderately dilated. Aortic Valve: The aortic valve is trileaflet. Mild aortic leaflet calcification is visualized. Systolic excursion of the aortic valve cusps is reduced. There is a trace of aortic regurgitation. There is moderate aortic stenosis. The mean gradient of the aortic valve is 29.98 mmHg. The peak instantaneous gradient of the aortic valve is 57.74 mmHg. The aortic valve area, by peak velocities, is calculated at 1.6 cm2. The aortic valve area, by VTI's, is calculated at 2 cm2. The aortic valve area, by planimetry, is calculated at 1.7 cm2. Highest aortic valve velocity was acquired with Pedoff in apical position. Mitral Valve: There is mitral annular calcification. The mitral valve leaflets are mildly thickened. Mitral valve posterior leaflet calcification is visualized. There is mild mitral regurgitation. The mitral regurgitant jet is eccentric. There is borderline mitral stenosis. Tricuspid Valve: The tricuspid valve leaflets are mildly thickened. There is moderate tricuspid regurgitation. The right ventricular systolic pressure is estimated at 54 mmHg. There is evidence of moderate pulmonary hypertension. There is no tricuspid stenosis. Pulmonic Valve: The pulmonic valve appears normal. There is a trace pulmonic regurgitation. There is no pulmonic stenosis. Pericardium: There is no significant pericardial effusion. A pericardial fat pad is visualized. Aorta: There is no dilatation of the ascending aorta. There is no dilatation of the aortic arch. The aortic root is normal in size. Pulmonary Artery: The main pulmonary artery appears normal. Venous: The inferior vena cava appears normal in size. There is an approximate 50% respiratory change in the inferior vena cava dimension. Summary: There are changes noted when compared to the previous study done on 03/23/2015, is now moderate instead of mild then. PHTN is new. There is increase in TR severity from trace then. Conclusions The left ventricular chamber size is decreased. Moderate concentric left ventricular hypertrophy is observed. The left ventricle appears hyperdynamic. The estimated ejection fraction is greater than 65%. Abnormal left ventricular diastolic function is observed. Abnormal left ventricular diastolic filling is observed, consistent with impaired relaxation. The left atrium is moderately dilated. The right atrium is moderately dilated. There is a trace of aortic regurgitation. There is moderate aortic stenosis. There is mild mitral regurgitation. The mitral regurgitant jet is eccentric. There is borderline mitral stenosis. There is moderate tricuspid regurgitation. The right ventricular systolic pressure is estimated at 54 mmHg. There is evidence of moderate pulmonary hypertension. There is a trace pulmonic regurgitation. There are changes noted when compared to the previous study done on 03/23/2015, is now moderate instead of mild then. PHTN is new. There is increase in TR severity from trace then. Measurements Name Value Normal Range RVIDd (AP) 2D 3 cm (0.9 - 2.6) RVDdMajor (2D) 4.2 cm (2.2 - 4.4) RVAW (2D) 0.6 cm (0.2 - 0.5) RAd ISD 4CH 5.5 cm (3.4 - 4.9) RA (A4C)W 3.6 cm (2.9 - 4.6) IVSd (2D) 1.4 cm (0.6 - 1) LVPWd (2D) 1.4 cm (0.6 - 1) LVIDd (2D) 3.1 cm (3.6 - 5.4) LVIDs (2D) 2.1 cm - LV FS (2D) 34 % (25 - 45) Aortic Annulus 2 cm (1.4 - 2.6) Ao root diameter (2D) 3.4 cm (2.1 - 3.5) Ascending Ao 3.3 cm (2.1 - 3.4) Aortic arch 2.2 cm (1.8 - 3.4) LA dimension (AP) 2D 3.4 cm (2.3 - 3.8) LAd ISD 4CH 5.8 cm (2.9 - 5.3) LA ISD 4CH W 4.6 cm (2.5 - 4.5) Name Value Normal Range LA ESV SP 4CH (A/L) 89 ml - LA ESV SP 2CH (A/L) 126 ml - LA ESV BP (A/L) 110 ml - LA ESV BP (A/L) index 60 ml/m2 - LA ESV SP 4CH (MOD) 82 ml - LA ESV SP 2CH (MOD) 120 ml - Name Value Normal Range MV E-wave Vmax 1.08 m/sec - MV deceleration time 245.3 msec - MV A-wave Vmax 1.6 m/sec - MV E:A ratio 0.64 ratio - LV septal e' Vmax 0.06 m/sec - LV lateral e' Vmax 0.06 m/sec - LV E:e' septal ratio 18 ratio - LV E:e' lateral ratio 18 ratio - Name Value Normal Range AV Vmax 3.8 m/sec - AV VTI 62.5 cm - AV peak gradient 57.74 mmHg - AV mean gradient 29.98 mmHg - LVOT diameter 2 cm - LVOT Vmax 1.9 m/sec - LVOT VTI 40.03 cm - LVOT peak gradient 14.44 mmHg - LVOT mean gradient 9.04 mmHg - DOI (VTI) 0.64 ratio - LEXI (planimetry) 1.7 cm2 - LEXI (continuity Vmax) 1.6 cm2 - LEXI (continuity VTI) 2 cm2 - VALERIE Vmax 0.98 m/sec - Name Value Normal Range MV Vmax 1.66 m/sec - MV VTI 33.3 cm - MV peak gradient 11.09 mmHg - MV mean gradient 3.68 mmHg - MV PHT 89.71 msec - MVA (PHT) 2.45 cm2 - MVA (continuity VTI) 3.79 cm2 - Name Value Normal Range TR Vmax 3.4 m/sec - TR peak gradient 46 mmHg - RAP 8 mmHg - RVSP 54 mmHg - IVC diameter 1.9 cm - Name Value Normal Range PV Vmax 1.35 m/sec - PV peak gradient 7.33 mmHg -
[2017-07-14] MEDS: Atorvastatin* 40 MG TAB PO SCH (16:45)
[2017-07-15] MEDS: oxyCODONE TAB* 5 MG TAB PO PRN (04:28)
[2017-07-15 05:39] LABS: Hematocrit 24 % (35-47); Hemoglobin 8.5 g/dl (12.0-16.0); Mean Corpuscular HGB Conc 35 g/dl (31-36); Mean Corpuscular Hemoglobin 34 pg (27-31); Mean Corpuscular Volume 95 fL (80-97); Mean Platelet Volume 6.7 um3 (7.4-10.4); Platelet Count 279 10^3/ul (150-450); Red Blood Count 2.54 10^6/ul (4.0-5.4); Red Cell Distribution Width 16 % (10.5-15); White Blood Count 10.4 10^3/ul (3.5-10.8)
[2017-07-15 05:54] LABS: EGFR Non-African American 87.7 (>60)
--- NOTE | 2017-07-15 07:58 | PN ---
Progress Note - Progress Note Date of Service: 07/15/17 SOAP: Subjective: [S/p T10-L2 instrumented fusion for T12 compression fracture on 07/12, POD #3. Complains of abdominal pain this morning. Complains of dry mouth. Denies lower extremity pain, headache. ] Objective: [ Vital Signs: Temp Pulse Resp BP Pulse Ox 98.0 F 84 14 119/52 99 07/15/17 07:34 07/15/17 07:34 07/15/17 07:34 07/15/17 07:34 07/15/17 07:34 General: Sleeping supine in bed. Neuro: Persistent right foot weakness. CV: Pedal edema, pulses intact bilaterally. Incision: Drains in place, left side not functioning well. Drain output 07/12/17 07/12/17 07/13/17 16:45 18:27 01:12 Output, LOPEZ #1 140 50 60 Output, LOPEZ #2 70 40 40 07/13/17 07/13/17 07/13/17 05:23 14:00 17:20 Output, LOPEZ #1 10 65 50 Output, LOPEZ #2 20 40 30 07/13/17 07/14/17 07/14/17 22:00 06:20 22:00 Output, LOPEZ #1 30 20 30 Output, LOPEZ #2 20 35 40 07/15/17 06:00 Output, LOPEZ #1 20 Output, LOPEZ #2 ] Assessment: [Slow recovery post-op. Cardiac work up yesterday. Ileus on abdominal xr.] Plan: [1. Hospitalist following. 2. Continue pain management 3. Continue monitoring drain output. 4. PT, encourage up out of bed as tolerated.]
[2017-07-15] MEDS: NS 0.9% 1000 ML* 1,000 ML IV SCH ×2 (08:04→23:34)
[2017-07-15] MEDS: Docusate CAP* 100 MG PO SCH ×2 (08:33→21:29)
[2017-07-15] MEDS: Cyclobenzaprine TAB* 10 MG PO PRN ×2 (08:33→23:32)
[2017-07-15] MEDS: Metoprolol Tartrate TAB* 25 MG PO SCH ×2 (08:34→21:28)
[2017-07-15] MEDS: Polyethylene Glycol 3350* 17 GM PACKET PO SCH (08:38)
--- NOTE | 2017-07-15 12:05 | PN ---
Subjective Date of Service: 07/15/17 Interval History: Ms. Judge reports persistent abdominal distention and discomfort today. She denies other complaint. She has had no nausea or vomiting. She denies chest pain or SOB. She has not had a bowel movement per nursing staff. Objective Active Medications: Albuterol/Ipratropium (Duoneb (Albuterol 2.5 Mg/Ipratropium 0.5 Mg)) 1 neb INH Q4H PRN Alprazolam (Xanax Tab*) 0.5 mg PO BID PRN Atorvastatin Calcium (Lipitor*) 40 mg PO 1700 CONNIE Cyclobenzaprine HCl (Flexeril Tab*) 10 mg PO BID PRN Docusate Sodium (Colace Cap*) 200 mg PO BID CONNIE Sodium Chloride (Ns 0.9% 1000 Ml*) 1,000 mls @ 75 mls/hr IV PER RATE CONNIE Metoprolol Tartrate (Lopressor Tab*) 12.5 mg PO Q12HR CONNIE Mometasone Furoate/Formoterol Fumar (Dulera 200/5 Mdi*) 2 puff INH BID PRN; Protocol Morphine Sulfate (Morphine Vial*) 2 mg IV Q4H PRN Oxycodone HCl (Roxycodone Tab*) 5 mg PO Q3H PRN Oxycodone HCl (Roxycodone Tab*) 10 mg PO Q4H PRN Tramadol HCl (Ultram*) 50 mg PO Q6HR PRN Vital Signs: Temp Pulse Resp BP Pulse Ox 98.0 F 79 14 124/53 100 07/15/17 11:58 07/15/17 11:58 07/15/17 11:58 07/15/17 11:58 07/15/17 11:58 Oxygen Devices in Use Now: Nasal Cannula Appearance: Elderly female, sleepy but appears uncomfortale when awake Eyes: No Scleral Icterus Ears/Nose/Mouth/Throat: Mucous Membranes Moist Neck: Trachea Midline Respiratory: Symmetrical Chest Expansion and Respiratory Effort, Clear to Auscultation Cardiovascular: NL Sounds; No Murmurs; No JVD, No Edema Abdominal: - - Soft, distended, BS hyperactive Extremities: No Edema Skin: No Rash or Ulcers Neurological: Alert and Oriented x 3, NL Muscle Strength and Tone Nutrition: Taking PO's Result Diagrams: 07/15/17 05:09 07/15/17 05:09 Additional Lab and Data: . Microbiology and Other Data: . Assess/Plan/Problems-Billing Assessment: Ms. Judge is an 81yo female with a PMH mcrae HTN, COPD and known T12 compression fracture who is admitted with radicular symptoms and is now s/p surgery on Wednesday 07/12 with post-op anemia. - Patient Problems (1) Ileus Comment: - Persistent symptoms of ileus with distention, no BM per nursing. - Diffuse distention noted on abd xray 07/14/17. - Encourage ambulation, clear liquids only. - Repeat xray in AM. (2) T12 vertebral fracture Comment: - Management per Dr. Melara, s/p surgery 07/12/17. - Rich replaced for urinary retention. - Pain meds prn. - Continue PT. (3) Chest pain Comment: - Trops peaked at 0.11. No evidence of ischemia on EKG. - Echo only showing worsening aortic stenosis, from mild to moderate. Suspect demand ischemia in setting of surgery, pain, and aortic stenosis. - Antiplatelets and coagulants not indicated due to recent surgery. - Metoprolol and atorvastatin started. - CTA chest suboptimal but no evidence of PE. (4) Acute blood loss anemia Comment: - Hgb down to 8.5, monitor. Transfused 3 units this hospitalization. - Patient had an estimate of 1,000ml EBL in surgery. (5) Acute kidney injury Comment: - Resolved with fluids. (6) COPD (chronic obstructive pulmonary disease) Comment: - Asymptomatic. - Duoneb PRN. Continue Dulera. (7) HTN (hypertension) Comment: - SBP 100-130s. - Hold lisinopril/hctz in setting of acute blood loss anemia. (8) Hyperkalemia Comment: - Resolved. (9) Hyponatremia Comment: - Na 127, monitor. Hold thiazide. - Start maintenance fluids now, recheck Na level this afternoon. (10) UTI (urinary tract infection) Comment: - Mildly positive UA on 07/10 but culture suggested contanimation. - Repeat UA negative, stop ceftriaxone. (11) DVT prophylaxis Comment: - SCDs only with surgery and acute blood loss anemia. (12) Full code status Comment: Status and Disposition: Admitted inpatient.
[2017-07-15 15:53] LABS: EGFR Non-African American 75.5 (>60)
[2017-07-15] MEDS ORDERED: Acetaminophen TAB* 325 MG ONE (17:13)
[2017-07-15] MEDS: Atorvastatin* 40 MG TAB PO SCH (17:14)
[2017-07-15] MEDS: Acetaminophen TAB* 325 MG PO PRN ×2 (17:15→21:51)
[2017-07-15] MEDS: Calcium Carbonate CHEW TAB* 500 MG (TUMS) PO PRN (21:29)
[2017-07-16] MEDS: Calcium Carbonate CHEW TAB* 500 MG (TUMS) PO PRN ×2 (02:34→08:25)
[2017-07-16] MEDS: traMADol TAB* 50 MG PO PRN (02:39)
[2017-07-16] MEDS: Metoprolol Tartrate TAB* 25 MG PO SCH ×2 (08:25→20:35)
[2017-07-16] MEDS: Acetaminophen TAB* 325 MG PO PRN ×3 (08:26→20:34)
[2017-07-16] MEDS: Docusate CAP* 100 MG PO SCH ×2 (08:26→20:35)
[2017-07-16] MEDS ORDERED: Magnesium Sulfate IV* 3 GM in NS 0.9% 100 ML* 100 ML IVPB ONE (08:38)
--- NOTE | 2017-07-16 08:41 | PN ---
Subjective Date of Service: 07/16/17 Interval History: Ms. Judge continues to report abdominal discomfort and distention. She also reports back pain which is mild. She denies other complaint including chest pain, SOB, or nausea. There has been no report of gas, stool or vomiting. Objective Active Medications: Acetaminophen (Tylenol Tab*) 650 mg PO Q4H PRN Albuterol/Ipratropium (Duoneb (Albuterol 2.5 Mg/Ipratropium 0.5 Mg)) 1 neb INH Q4H PRN Alprazolam (Xanax Tab*) 0.5 mg PO BID PRN Atorvastatin Calcium (Lipitor*) 40 mg PO 1700 CONNIE Calcium Carbonate (Tums*) 500 mg PO BID PRN Cyclobenzaprine HCl (Flexeril Tab*) 10 mg PO BID PRN Docusate Sodium (Colace Cap*) 200 mg PO BID CONNIE Sodium Chloride (Ns 0.9% 1000 Ml*) 1,000 mls @ 75 mls/hr IV PER RATE CONNIE Metoprolol Tartrate (Lopressor Tab*) 12.5 mg PO Q12HR CONNIE Mometasone Furoate/Formoterol Fumar (Dulera 200/5 Mdi*) 2 puff INH BID PRN; Protocol Morphine Sulfate (Morphine Vial*) 2 mg IV Q4H PRN Oxycodone HCl (Roxycodone Tab*) 5 mg PO Q3H PRN Oxycodone HCl (Roxycodone Tab*) 10 mg PO Q4H PRN Tramadol HCl (Ultram*) 50 mg PO Q6HR PRN Vital Signs: Temp Pulse Resp BP Pulse Ox 97.7 F 96 22 173/69 98 07/16/17 07:13 07/16/17 07:13 07/16/17 07:13 07/16/17 07:13 07/16/17 07:13 Oxygen Devices in Use Now: Nasal Cannula Appearance: Elderly female lying in bed in NAD Eyes: No Scleral Icterus Ears/Nose/Mouth/Throat: Mucous Membranes Moist Neck: Trachea Midline Respiratory: Symmetrical Chest Expansion and Respiratory Effort, Clear to Auscultation Cardiovascular: NL Sounds; No Murmurs; No JVD, - - minimal edema to B LEs Abdominal: - - Soft, distendened, generalized tenderness Lymphatic: No Cervical Adenopathy Extremities: No Edema Skin: No Rash or Ulcers Neurological: Alert and Oriented x 3, NL Muscle Strength and Tone Nutrition: Taking PO's Result Diagrams: 07/15/17 05:09 07/16/17 11:59 Additional Lab and Data: . Microbiology and Other Data: . Assess/Plan/Problems-Billing Assessment: Ms. Judge is an 81yo female with a PMH mcrae HTN, COPD and known T12 compression fracture who is admitted with radicular symptoms and is now s/p surgery on Wednesday 07/12 with post-op anemia. - Patient Problems (1) Ileus Comment: - Xray this AM shows persistent ileus, will try to place NG to suction for distention. - Persistent symptoms of ileus with distention, no BM per nursing. - Encourage ambulation, clear liquids only. (2) T12 vertebral fracture Comment: - Management per Dr. Melara, s/p surgery 07/12/17, 2 LOPEZ drains in situ with minimal sanginous drainage. - Rich replaced for urinary retention. - Pain meds prn. - Continue PT. (3) Chest pain Comment: - Trops peaked at 0.11. No evidence of ischemia on EKG. - Echo only showing worsening aortic stenosis, from mild to moderate. Suspect demand ischemia in setting of surgery, pain, and aortic stenosis. - Antiplatelets and coagulants not indicated due to recent surgery. - Metoprolol and atorvastatin started. - CTA chest suboptimal but no evidence of PE. (4) Acute blood loss anemia Comment: - Hgb down to 8.5, monitor. Transfused 3 units this hospitalization. - Patient had an estimate of 1,000ml EBL in surgery. (5) Acute kidney injury Comment: - Resolved with fluids. (6) COPD (chronic obstructive pulmonary disease) Comment: - Asymptomatic. - Duoneb PRN. Continue Dulera. (7) HTN (hypertension) Comment: - SBP 100-130s. - Hold lisinopril/hctz in setting of acute blood loss anemia. (8) Hyperkalemia Comment: - Resolved. (9) Hyponatremia Comment: - Na 127, monitor. Hold thiazide. - Start maintenance fluids now, recheck Na level in AM (10) UTI (urinary tract infection) Comment: - Mildly positive UA on 07/10 but culture suggested contanimation. - Repeat UA negative, stop ceftriaxone. (11) DVT prophylaxis Comment: - SCDs only with surgery and acute blood loss anemia. (12) Full code status Comment: Status and Disposition: Admitted inpatient.
--- NOTE | 2017-07-16 09:01 | RAD ---
Indication: Back pain. Ileus. Comparison: July 14, 2017 Technique: Supine and LEFT lateral decubitus abdomen views. Report: Diffuse gas distention of the small bowel loops and gas distention of the RIGHT colon. Air-fluid levels at the small bowel loops and RIGHT colon. Negative for free intraperitoneal air. Lower thoracic and proximal lumbar spine fixation rods and midline cutaneous jorge. IMPRESSION: The appearance given the clinical context is most consistent with persistent postoperative ileus.
--- NOTE | 2017-07-16 12:16 | PN ---
Progress Note - Progress Note Date of Service: 07/16/17 SOAP: Subjective: []No events ON. Ambulated this am. Tolerates PO. Rich. Flatus this am Objective: [] VSS, Afebrile Wound s,c,d. Drain removed, Catheter appeared to be intact. Patient tolerated the procedure well. AAOx3 SHAILESH Motor 4-5/5 except rt foot DF weakness present preop Sensory grosly intact to light touch Abdomen distended, soft, non tender, rebound negative. Assessment: []81 yo f TL fusion Plan: []Monitor VS, Neurochecks, Encourage ambulation, OOB in a chair PT Ileus, appreciate IM management DC planning V MD Jillian
[2017-07-16] MEDS: Atorvastatin* 40 MG TAB PO SCH (16:56)
--- NOTE | 2017-07-17 04:09 | OP ---
DATE OF OPERATION: 07/12/17 - ROOM #340 DATE OF : 37 SURGEON: Tj Melara MD DIRECTOR OF PROGRAM MANAGEMENT: JESÚS Rosario ANESTHESIA: General. PRE-OP DIAGNOSES: 1. T12 compression fracture with retropulsed bone fragment. 2. Lumbar spinal stenosis, L4-5. POST-OP DIAGNOSIS: OPERATIVE PROCEDURE: Thoracolumbar fusion T10 to L2 with nonsegmental posterior instrumentation from T10 to L2, lateral fusion T10 to L2, stereotactic navigation for pedicle screw placement, lumbar decompressive laminectomy L4-5 with bilateral foraminotomy L4-5. DESCRIPTION OF PROCEDURE: After satisfactory general anesthesia was obtained, the patient was placed on the operating table in the prone position with the patient's back slightly extended on the Johnny table. The thoracolumbar region was clipped, prepped and draped for thoracolumbar laminectomy, and a skin incision outlined from approximately T10 to L5. This incision was infiltrated with 1% Xylocaine with epinephrine after which it was turned down to the level of thoracolumbar fascia. The fascia was divided from the spinous processes of T10 and L5 and the paraspinal musculature stripped away from these posterior elements using the periosteal elevator and monopolar cautery. An intraoperative x-ray was obtained verifying localization of the L3-4 level. This enabled identification of the L1 and L2 transverse processes, which were dissected free as well as the costovertebral junction at each of the thoracic levels identified. After the exposure had been obtained, the O-arm intraoperative navigation system was brought into the field and with the stealth reference arc attached to the L3 spinous process, an intraoperative spin was done to be used for stereotactic navigation and placement of pedicle screws at T10, T11, L1 and L2. This was initially carried out on the right side where using stereotactic navigation screws were placed initially at L2 on the right where a 5.5 diameter screw x 50 mm in length was placed. A similar screw was placed at L1 and T11 and at T10 a 5.5 diameter 45 mm length screw was placed. Screws were then placed on the left side in a similar manner. It was noted on the initial O-arm spin that the patient's bony fragment that had been occupying approximately 50% of her spinal canal on preoperative CT scanning had reduced to where it was no more than approximately 25% of the canal and did not seem to be causing significant cord compromise. The decision was made at that point to not disrupt the posterior elements at T12 to try to ensure a degree of posterior stability. A second spin was obtained verifying excellent screw placement, after which a wilman was bent into position and secured into the screws. Attention was then directed to the L4-5 level, where preoperative studies had shown severe spinal stenosis. A decompression was carried out at this level by removing the spinous process of L4 and the superior aspect of spinous process of L5. The Midas Ahmet drill was then used to thin out the inferior portion of L4 as well as the medial aspect of the thickened facet complex. A Kerrison was then used to complete a decompression. This was carried laterally and inferiorly until generous foraminotomies have been performed over the L5 nerve roots. Attention was then redirected to the thoracolumbar area and bone graft, which was cancellous bone graft from the bone bank as well as DBX putty had been mixed to use as a bony matrix and was laid in the lateral and medial gutter from L2 to T10 to accomplish fusion from those levels. The patient had some generalized oozing from her bony surfaces throughout the procedure. The estimated blood loss was approximately 1000 cc. After the wound was irrigated, drains were placed, one on each side of the midline, and tunneled out toward the respective sides. The fascia was then reapproximated with 0 Vicryl suture. The subcutaneous tissues were reapproximated with 3-0 Vicryl and the skin closed with skin clips. The estimated blood loss was 1000 cc as noted above. The patient was taken to the recovery room, extubated and in stable condition. [id number]/[facility] #: [id number] [facility]ITALPilo
[2017-07-17] MEDS: Calcium Carbonate CHEW TAB* 500 MG (TUMS) PO PRN (04:31)
[2017-07-17] MEDS: Acetaminophen TAB* 325 MG PO PRN ×2 (04:31→15:47)
[2017-07-17] MEDS: NS 0.9% 1000 ML* 1,000 ML IV SCH (05:31)
[2017-07-17 05:52] LABS: ABS Basophils 0 10^3/ul (0-0.2); ABS Eosinophils 0 10^3/ul (0-0.6); ABS Lymphocytes 0.9 10^3/ul (1.0-4.8); ABS Monocytes 0.9 10^3/ul (0-0.8); ABS Neutrophils 6.8 10^3/ul (1.5-7.7); ABS Nucleated RBC 0 10^3/ul; Eosinophil % 0.1 % (0-6); Hematocrit 26 % (35-47); Hemoglobin 8.9 g/dl (12.0-16.0); Mean Corpuscular HGB Conc 35 g/dl (31-36); Mean Corpuscular Hemoglobin 33 pg (27-31); Mean Corpuscular Volume 96 fL (80-97); Mean Platelet Volume 6.5 um3 (7.4-10.4); Nucleated Red Blood Cells % 0; Platelet Count 372 10^3/ul (150-450); Red Cell Distribution Width 16 % (10.5-15); White Blood Count 8.6 10^3/ul (3.5-10.8)
--- NOTE | 2017-07-17 07:39 | PN ---
Subjective Date of Service: 07/17/17 Interval History: Ms. Judge reports less abdominal pain today and reports 2-3 bowel movements. She denies any significant back pain. She is a bit short of breath this morning ; she denies chest pain. She denies nausea. Objective Active Medications: Acetaminophen (Tylenol Tab*) 650 mg PO Q4H PRN Albuterol/Ipratropium (Duoneb (Albuterol 2.5 Mg/Ipratropium 0.5 Mg)) 1 neb INH Q4H PRN Alprazolam (Xanax Tab*) 0.5 mg PO BID PRN Atorvastatin Calcium (Lipitor*) 40 mg PO 1700 CONNIE Calcium Carbonate (Tums*) 500 mg PO BID PRN Cyclobenzaprine HCl (Flexeril Tab*) 10 mg PO BID PRN Docusate Sodium (Colace Cap*) 200 mg PO BID CONNIE Sodium Chloride (Ns 0.9% 1000 Ml*) 1,000 mls @ 75 mls/hr IV PER RATE CONNIE Metoprolol Tartrate (Lopressor Tab*) 12.5 mg PO Q12HR CONNIE Mometasone Furoate/Formoterol Fumar (Dulera 200/5 Mdi*) 2 puff INH BID PRN; Protocol Morphine Sulfate (Morphine Vial*) 2 mg IV Q4H PRN Ondansetron HCl (Zofran Odt Tab*) 4 mg SL Q6H PRN Oxycodone HCl (Roxycodone Tab*) 5 mg PO Q3H PRN Oxycodone HCl (Roxycodone Tab*) 10 mg PO Q4H PRN Tramadol HCl (Ultram*) 50 mg PO Q6HR PRN Vital Signs: Temp Pulse Resp BP Pulse Ox 97.9 F 107 18 145/49 97 07/17/17 03:09 07/17/17 08:06 07/17/17 09:43 07/17/17 08:06 07/17/17 08:06 Oxygen Devices in Use Now: Nasal Cannula Appearance: Female lying in bed in NAD Eyes: No Scleral Icterus Ears/Nose/Mouth/Throat: Mucous Membranes Moist Neck: NL Appearance and Movements; NL JVP, Trachea Midline Respiratory: Symmetrical Chest Expansion and Respiratory Effort, - - Diminished in bases Cardiovascular: NL Sounds; No Murmurs; No JVD, - - minimal edema in Bilateral feet Abdominal: - - Softer, less tender, BS hyperactive Skin: No Rash or Ulcers Neurological: Alert and Oriented x 3, NL Muscle Strength and Tone Nutrition: Taking PO's Result Diagrams: 07/17/17 05:28 07/17/17 05:28 Additional Lab and Data: . Microbiology and Other Data: . Assess/Plan/Problems-Billing Assessment: Ms. Judge is an 81yo female with a H mcrae HTN, COPD and known T12 compression fracture who is admitted with radicular symptoms and is now s/p surgery on Wednesday 07/12 with post-op anemia and ileus. - Patient Problems (1) SOB (shortness of breath) Comment: - Acute CHF with pulmonary edema on cxray likely secondary to IVF and moderate aortic stenosis. - Lasix 20mg IV x 1 now, monitor urine output (zepeda in situ). (2) Ileus Comment: - Resolving. - Reported small BM x 2 overnight. - Encourage ambulation, clear liquids only. (3) T12 vertebral fracture Comment: - Management per Dr. Melara, s/p surgery 07/12/17, LOPEZ drains removed. - Zepeda replaced for urinary retention. - Pain meds prn. - Continue PT. (4) Chest pain Comment: - Trops peaked at 0.11. No evidence of ischemia on EKG. - Echo only showing worsening aortic stenosis, from mild to moderate. Suspect demand ischemia in setting of surgery, pain, and aortic stenosis. - Antiplatelets and coagulants not indicated due to recent surgery. - Metoprolol and atorvastatin started. - CTA chest suboptimal but no evidence of PE. (5) Acute blood loss anemia Comment: - Hgb 8.9, monitor. Transfused 3 units this hospitalization. - Patient had an estimate of 1,000ml EBL in surgery. (6) Acute kidney injury Comment: - Resolved with fluids. (7) COPD (chronic obstructive pulmonary disease) Comment: - No evidence of acute exacerbation. - Duoneb PRN. Continue Dulera. (8) HTN (hypertension) Comment: - SBP 100-130s. - Hold lisinopril/hctz in setting of acute blood loss anemia. (9) Hyperkalemia Comment: - Resolved. (10) Hyponatremia Comment: - Na 130, monitor. Hold thiazide. - Continue maintenance fluids. (11) UTI (urinary tract infection) Comment: - Mildly positive UA on 07/10 but culture suggested contanimation. - Repeat UA negative, stop ceftriaxone. (12) DVT prophylaxis Comment: - SCDs only with surgery and acute blood loss anemia. (13) Full code status Comment: Status and Disposition: Admitted inpatient. PT following. Anticipate need for rehab at time of discharge.
--- NOTE | 2017-07-17 08:26 | PN ---
Progress Note - Progress Note Date of Service: 07/17/17 SOAP: Subjective: [S/p lumbar fusion T10-L2 for T12 compression fracture and L4-5 decompression for stenosis, POD #5. Pt complains of back pain but more bothersome is abdominal pain and ecchymosis to the right lateral chest. Pain worse with movement in bed and getting up out of bed. Did have small bowel movements overnight. ] Objective: [ Vital Signs: Temp Pulse Resp BP Pulse Ox 97.9 F 94 18 163/63 99 07/17/17 03:09 07/17/17 03:09 07/17/17 03:09 07/17/17 03:09 07/17/17 03:09 General: More awake and alert this morning. Lungs: Short of breath with speaking, O2 NC in place. Mild wheezing bilaterally. Neuro: Right foot weakness persistent. Extremities: Ecchymosis to LUE. Bilateral pedal edema, pulses intact and equal. Incision: Intact and without swelling. Dressing clean and dry. ] Assessment: [Slowly progressing post-operatively. Bowel movements overnight. Stable neuro, R ft weakness persistent.] Plan: [1. Continue to encourage up out of bed and ambulating as tolerable. 2. Continue muscle relaxants and tylenol PRN. 3. PT/OT today. 4. Possible rehab once ileus resolved. ]
--- NOTE | 2017-07-17 09:05 | RAD ---
Indication: Shortness of breath. Back pain. Comparison: July 14, 2017 CT. Technique: Semierect AP 0842 hours Report: Unchanged moderate elevation of the LEFT hemidiaphragm with associated LEFT basilar compressive atelectasis. Mild cardiomegaly. Prominent ill-defined central pulmonary vasculature, perihilar alveolar opacities, and diffuse prominence of the interstitial markings with thickened peripheral interlobular septa. Small dependent pleural effusions. Negative for pneumothorax. IMPRESSION: Alveolar and interstitial pulmonary edema with interval worsening.
[2017-07-17] MEDS: Docusate CAP* 100 MG PO SCH ×2 (09:43→21:13)
[2017-07-17] MEDS: oxyCODONE TAB* 5 MG TAB PO PRN ×2 (09:43→21:14)
[2017-07-17] MEDS: Metoprolol Tartrate TAB* 25 MG PO SCH ×2 (09:43→21:14)
[2017-07-17] MEDS ORDERED: Furosemide IV* 10 MG/ML 2 ML VIAL (20 MG) IV ONE (10:23)
[2017-07-17] MEDS: Atorvastatin* 40 MG TAB PO SCH (16:40)
[2017-07-17] MEDS: Morphine VIAL* 4 MG/ML VIAL (1 ml vial) IV PRN (19:49)
[2017-07-18] MEDS: oxyCODONE TAB* 5 MG TAB PO PRN (05:25)
[2017-07-18 05:45] LABS: EGFR Non-African American 127.5 (>60)
[2017-07-18] MEDS: Metoprolol Tartrate TAB* 25 MG PO SCH ×2 (08:23→20:36)
[2017-07-18] MEDS: Docusate CAP* 100 MG PO SCH ×2 (08:23→20:38)
--- NOTE | 2017-07-18 08:30 | PN ---
Progress Note - Progress Note Date of Service: 07/18/17 SOAP: Subjective: [S/p T10-L2 fusion for T12 fracture and L4-5 decompression for stenosis, POD#6. States that she is feeling tired, breathing is improved today. Complains of back pain with movement and getting up. Has had BMs, she is not sure if abdomen feels better. Denies headache and nausea. Minimal desire to get out of bed to chair or ambulate. Working with PT and OT.] Objective: [ Vital Signs: Temp Pulse Resp BP Pulse Ox 97.7 F 100 16 123/46 96 07/18/17 07:18 07/18/17 07:18 07/18/17 07:25 07/18/17 07:18 07/18/17 07:18 General: Speech is clear. Patient awakes to voice although does not open eyes much during conversation. Neuro: Right foot weakness persistent. Incision: Intact with jorge. Mild ecchymosis. No swelling or drainage. Dressing changed.] Assessment: [Slow post-op progress. Will need rehab at discharge.] Plan: [1. Encourage up out of bed. 2. PT and OT 3. Discussed importance of getting up and out of bed for recovery and avoiding more post-op complications. 4. Continue pain management.]
[2017-07-18] MEDS: Ondansetron ODT TAB* 4 MG SL PRN (09:53)
--- NOTE | 2017-07-18 14:09 | PN ---
Subjective Date of Service: 07/18/17 Interval History: Patient remains to be lethargic and denies pain but winces with any movement and when pressed states that this is incisional pain in her back. Patient is unable to state why she is not participative in her PT. Patient states her SOB has improved from yesterday. Patient has been having BMs and denies nausea or vomiting. Patient denies F/C, CP, SOB, abdominal pain, or other pain. Patient seems somewhat confused when talking with nursing staff particularly about medications. Discussed with family and they are concerned about the amount of pain medication she has been receiving. Family History: Findings - F had leukemia, M age 83 [place]. Social History: Findings - Lives alone. Quit smoking 16 yrs ago. SDM is her daughter Daniela Winchester. No alcohol abuse. Past Medical History: Findings - 5 children. Appy, BL cataract surgery, thyroid surgery 50 yrs ago, bunion surgery. COPD, HTN. Objective Active Medications: Acetaminophen (Tylenol Tab*) 650 mg PO Q4H PRN PRN Reason: FEVER/PAIN Last Admin: 07/17/17 15:47 Dose: 650 mg Albuterol/Ipratropium (Duoneb (Albuterol 2.5 Mg/Ipratropium 0.5 Mg)) 1 neb INH Q4H PRN PRN Reason: SOB/WHEEZING Alprazolam (Xanax Tab*) 0.5 mg PO BID PRN PRN Reason: ANXIETY Last Admin: 07/14/17 22:23 Dose: 0.5 mg Atorvastatin Calcium (Lipitor*) 40 mg PO 1700 [facility] Last Admin: 07/17/17 16:40 Dose: 40 mg Calcium Carbonate (Tums*) 500 mg PO BID PRN PRN Reason: HEARTBURN Last Admin: 07/17/17 04:31 Dose: 500 mg Cyclobenzaprine HCl (Flexeril Tab*) 10 mg PO BID PRN PRN Reason: SPASMS - BACK Last Admin: 07/15/17 23:32 Dose: 10 mg Docusate Sodium (Colace Cap*) 200 mg PO BID [facility] Last Admin: 07/18/17 08:23 Dose: 200 mg Metoprolol Tartrate (Lopressor Tab*) 12.5 mg PO Q12HR [facility] Last Admin: 07/18/17 08:23 Dose: 12.5 mg Mometasone Furoate/Formoterol Fumar (Dulera 200/5 Mdi*) 2 puff INH BID PRN; Protocol PRN Reason: SOB/WHEEZING Ondansetron HCl (Zofran Odt Tab*) 4 mg SL Q6H PRN PRN Reason: NAUSEA/VOMITING Last Admin: 07/18/17 09:53 Dose: 4 mg Oxycodone HCl (Roxycodone Tab*) 5 mg PO Q3H PRN PRN Reason: PAIN - SEVERE Last Admin: 07/18/17 05:25 Dose: 5 mg Tramadol HCl (Ultram*) 50 mg PO Q6HR PRN PRN Reason: PAIN Last Admin: 07/16/17 02:39 Dose: 50 mg Vital Signs - 8 hr 07/18/17 07/18/17 07/18/17 07:18 07:25 09:21 Temperature 97.7 F Pulse Rate 100 100 Respiratory 20 16 20 Rate Blood Pressure 123/46 (mmHg) O2 Sat by Pulse 96 96 Oximetry Oxygen Devices in Use Now: Nasal Cannula Appearance: Patient is an 81yo female who appears stated age and is sitting in the chair in NAD. Eyes: No Scleral Icterus, PERRLA Ears/Nose/Mouth/Throat: NL Teeth, Lips, Gums, Clear Oropharnyx, Mucous Membranes Moist Neck: NL Appearance and Movements; NL JVP, Trachea Midline Respiratory: Symmetrical Chest Expansion and Respiratory Effort, Clear to Auscultation Cardiovascular: NL Sounds; No Murmurs; No JVD, RRR, No Edema Abdominal: NL Sounds; No Tenderness; No Distention, No Hepatosplenomegaly Lymphatic: No Cervical Adenopathy Extremities: No Edema, No Clubbing, Cyanosis Skin: No Nodules or Sclerosis, - - Large midline incision on back covered by bandage. Neurological: Alert and Oriented x 3, - - CN II-XII intact. Result Diagrams: 07/17/17 05:28 07/18/17 05:03 Additional Lab and Data: . Microbiology and Other Data: . Assess/Plan/Problems-Billing Assessment: Ms. Judge is an 81yo female with a H mcrae HTN, COPD and known T12 compression fracture who is admitted with radicular symptoms and is now s/p surgery on Wednesday 07/12 with post-op anemia and ileus. - Patient Problems (1) Acute blood loss anemia Current Visit: Yes Status: Acute Code(s): D62 - ACUTE POSTHEMORRHAGIC ANEMIA SNOMED Code(s): 637428285 Comment: Hgb 8.9, monitor. Transfused 3 units this hospitalization. Patient had an estimate of 1,000ml EBL in surgery. Likely contributing to lethargy. (2) Chest pain Current Visit: Yes Status: Acute Code(s): R07.9 - CHEST PAIN, UNSPECIFIED SNOMED Code(s): 46274927 Comment: Trops peaked at 0.11. No evidence of ischemia on EKG. Echo only showing worsening aortic stenosis, from mild to moderate. Suspect demand ischemia in setting of surgery, pain, and aortic stenosis. Antiplatelets and coagulants not indicated due to recent surgery. Metoprolol and atorvastatin started. CTA chest suboptimal but no evidence of PE. Likely Musculoskeletal in origin. (3) T12 vertebral fracture Current Visit: Yes Status: Acute Code(s): S22.089A - UNSP FRACTURE OF T11- T12 VERTEBRA, INIT FOR CLOS FX SNOMED Code(s): 814120030 Comment: Management per Dr. Melara, s/p surgery 07/12/17, LOPEZ drains removed. Rich replaced for urinary retention. Pain meds prn. Will decrease amount to help with lethargy. Continue PT. Will likely need Rehab at discharge. (4) COPD (chronic obstructive pulmonary disease) Current Visit: Yes Status: Acute Code(s): J44.9 - CHRONIC OBSTRUCTIVE PULMONARY DISEASE, UNSPECIFIED SNOMED Code(s): 70112950 Comment: No evidence of acute exacerbation. Duoneb PRN. Continue Dulera. (5) Constipation Current Visit: Yes Status: Acute Code(s): K59.00 - CONSTIPATION, UNSPECIFIED SNOMED Code(s): 46514284 Comment: Related to opiate use. Continue Miralax and colace. Having multiple bowel movements. (6) HTN (hypertension) Current Visit: Yes Status: Acute Code(s): I10 - ESSENTIAL (PRIMARY) HYPERTENSION SNOMED Code(s): 79564563 Comment: SBP 120s to 150s. Hold lisinopril/hctz in setting of acute blood loss anemia. Will resume when clinically indicated. (7) Heart murmur Current Visit: Yes Status: Acute Code(s): R01.1 - CARDIAC MURMUR, UNSPECIFIED SNOMED Code(s): 98202735 Comment: Patient had echo at [facility] 6-9 months ago. Report shows mild aortic stenosis and preserved EF. Has progressed to moderate on recent echo. (8) Acute kidney injury Current Visit: Yes Status: Acute Code(s): N17.9 - ACUTE KIDNEY FAILURE, UNSPECIFIED SNOMED Code(s): 67433169 Comment: Resolved with fluids. (9) Hyponatremia Current Visit: Yes Status: Acute Code(s): E87.1 - HYPO-OSMOLALITY AND HYPONATREMIA SNOMED Code(s): 24466817 Comment: Na 130, monitor. Hold thiazide. Fluids stopped due to pulmonary edema. Improving slowly. (10) Hyperkalemia Current Visit: Yes Status: Acute Code(s): E87.5 - HYPERKALEMIA SNOMED Code (s): 63816754 Comment: Resolved. Likely due to BASSEM. (11) SOB (shortness of breath) Current Visit: Yes Status: Acute Code(s): R06.02 - SHORTNESS OF BREATH SNOMED Code(s): 309267983 Comment: Acute CHF with pulmonary edema on cxray likely secondary to IVF and moderate aortic stenosis. Lasix 20mg IV yesterday. Improved today, still on 2L NC. (12) Ileus Current Visit: Yes Status: Acute Code(s): K56.7 - ILEUS, UNSPECIFIED SNOMED Code(s): 948236411 Comment: Resolved Reported multiple BMs Encourage ambulation, advance to soft diet. (13) Full code status Current Visit: Yes Status: Acute Code(s): Z78.9 - OTHER SPECIFIED HEALTH STATUS SNOMED Code(s): 695253571 Comment: (14) DVT prophylaxis Current Visit: Yes Status: Acute Code(s): JHU4974 - SNOMED Code(s): 539936713 Comment: SCDs only with surgery and acute blood loss anemia. Status and Disposition: Admitted inpatient. PT following. Anticipate need for rehab at time of discharge.
[2017-07-18] MEDS: Acetaminophen TAB* 325 MG PO PRN ×2 (15:15→20:38)
[2017-07-18] MEDS: Calcium Carbonate CHEW TAB* 500 MG (TUMS) PO PRN ×2 (15:16→22:27)
[2017-07-18] MEDS ORDERED: Polyethylene Glycol 3350* 17 GM PACKET PO PRN (18:34)
[2017-07-18] MEDS: Lidocaine PATCH 5%* 1 PATCH TRANSDERM SCH (18:57)
[2017-07-18] MEDS: Atorvastatin* 40 MG TAB PO SCH (18:57)
[2017-07-18] MEDS: ALPRAZolam TAB* 0.5 MG PO PRN (20:37)
[2017-07-18] MEDS: Lidocaine Patch REMOVE* 1 NOTE MISC SCH (20:42)
[2017-07-19] MEDS: oxyCODONE TAB* 5 MG TAB PO PRN ×2 (00:27→23:29)
[2017-07-19] MEDS: Acetaminophen TAB* 325 MG PO PRN ×2 (00:27→21:07)
[2017-07-19 05:27] LABS: ABS Basophils 0 10^3/ul (0-0.2); ABS Eosinophils 0 10^3/ul (0-0.6); ABS Lymphocytes 0.9 10^3/ul (1.0-4.8); ABS Neutrophils 8.4 10^3/ul (1.5-7.7); ABS Nucleated RBC 0 10^3/ul; Eosinophil % 0.1 % (0-6); Hematocrit 26 % (35-47); Hemoglobin 9.1 g/dl (12.0-16.0); Lymphocyte % 8.4 % (25-47); Mean Corpuscular HGB Conc 35 g/dl (31-36); Mean Corpuscular Hemoglobin 33 pg (27-31); Mean Corpuscular Volume 95 fL (80-97); Mean Platelet Volume 6.3 um3 (7.4-10.4); Nucleated Red Blood Cells % 0; Platelet Count 358 10^3/ul (150-450); Red Blood Count 2.76 10^6/ul (4.0-5.4); Red Cell Distribution Width 16 % (10.5-15); White Blood Count 10.3 10^3/ul (3.5-10.8)
[2017-07-19 05:41] LABS: EGFR Non-African American 130.7 (>60)
[2017-07-19] MEDS: Ondansetron ODT TAB* 4 MG SL PRN ×3 (05:50→21:07)
--- NOTE | 2017-07-19 08:40 | PN ---
Progress Note - Progress Note Date of Service: 07/19/17 SOAP: Subjective: [Pt s/p T10-L2 fusion for T10 fracture and L4-5 decompression for stenosis. Reports emesis overnight and not being able to eat now. Denies back pain and abdominal pain. Reports right chest pain related to ecchymosis. Working with PT although unmotivated to ambulate. Nausea and vomiting last night.] Objective: [ Vital Signs: Temp Pulse Resp BP Pulse Ox 97.8 F 100 22 131/51 95 07/19/17 03:20 07/19/17 03:20 07/19/17 07:19 07/19/17 03:20 07/19/17 07:19 General: Responds to questions, keeps eyes closed during encounter. Neuro: Right foot weakness persistent. Sensory intact. Incision: Intact with jorge. Abdomen: Soft, nontender.] Assessment: [Slow post-op recovery. Patient unmotivated to participate in PT. Stable from neurosurgical standpoint.] Plan: [1. Continue PT, encourage ambulation. 2. Continue pain management, tylenol first and cyclobenzaprine. 3. Arranging discharge to subacute rehab.]
[2017-07-19] MEDS: Lidocaine PATCH 5%* 1 PATCH TRANSDERM SCH (10:31)
[2017-07-19] MEDS: Docusate CAP* 100 MG PO SCH ×2 (10:31→21:07)
[2017-07-19] MEDS: Metoprolol Tartrate TAB* 25 MG PO SCH ×2 (10:32→21:07)
--- NOTE | 2017-07-19 12:30 | PN ---
Subjective Date of Service: 07/19/17 Interval History: Patient continues to be unmotivated and not want to get out of bed. Patient has a flat affect and poor insight into the need to be more ambulatory to restore functional status. Patient vomited this AM and then again around 0900 green bilious vomit. Patient complains of pain mostly in her right chest which was somewhat responsive to lidocaine patch. Patient denies nausea, abdominal pain, diarrhea, F/C, back pain, radicular symptoms or other pain. Patient states her back incision only hurt when she moves around. Family History: Findings - F had leukemia, M age 83 [place]. Social History: Findings - Lives alone. Quit smoking 16 yrs ago. SDM is her daughter Daniela Winchester. No alcohol abuse. Past Medical History: Findings - 5 children. Appy, BL cataract surgery, thyroid surgery 50 yrs ago, bunion surgery. COPD, HTN. Objective Active Medications: Acetaminophen (Tylenol Tab*) 650 mg PO Q4H PRN PRN Reason: FEVER/PAIN Last Admin: 07/19/17 00:27 Dose: 650 mg Albuterol/Ipratropium (Duoneb (Albuterol 2.5 Mg/Ipratropium 0.5 Mg)) 1 neb INH Q4H PRN PRN Reason: SOB/WHEEZING Alprazolam (Xanax Tab*) 0.5 mg PO BID PRN PRN Reason: ANXIETY Last Admin: 07/18/17 20:37 Dose: 0.5 mg Atorvastatin Calcium (Lipitor*) 40 mg PO 1700 [facility] Last Admin: 07/18/17 18:57 Dose: 40 mg Calcium Carbonate (Tums*) 500 mg PO BID PRN PRN Reason: HEARTBURN Last Admin: 07/18/17 22:27 Dose: 500 mg Cyclobenzaprine HCl (Flexeril Tab*) 10 mg PO BID PRN PRN Reason: SPASMS - BACK Last Admin: 07/15/17 23:32 Dose: 10 mg Docusate Sodium (Colace Cap*) 200 mg PO BID [facility] Last Admin: 07/19/17 10:31 Dose: 200 mg Lidocaine (Lidoderm 5% Patch*) 1 patch TRANSDERM DAILY [facility] Last Admin: 07/19/17 10:31 Dose: 1 patch Metoprolol Tartrate (Lopressor Tab*) 12.5 mg PO Q12HR [facility] Last Admin: 07/19/17 10:32 Dose: 12.5 mg Mometasone Furoate/Formoterol Fumar (Dulera 200/5 Mdi*) 2 puff INH BID PRN; Protocol PRN Reason: SOB/WHEEZING Ondansetron HCl (Zofran Odt Tab*) 4 mg SL Q6H PRN PRN Reason: NAUSEA/VOMITING Last Admin: 07/19/17 05:50 Dose: 4 mg Oxycodone HCl (Roxycodone Tab*) 5 mg PO Q3H PRN PRN Reason: PAIN - SEVERE Last Admin: 07/19/17 00:27 Dose: 5 mg Pharmacy Profile Note (Lidocaine Patch Remove*) 1 note N/A 2100 [facility] Last Admin: 07/18/17 20:42 Dose: Not Given Polyethylene Glycol/Electrolytes (Miralax*) 17 gm PO DAILY PRN PRN Reason: CONSTIPATION Tramadol HCl (Ultram*) 50 mg PO Q6HR PRN PRN Reason: PAIN Last Admin: 07/16/17 02:39 Dose: 50 mg Vital Signs - 8 hr 07/19/17 07/19/17 07/19/17 07:19 07:34 10:13 Temperature 98.3 F 97.8 F Pulse Rate 103 82 Respiratory 22 16 20 Rate Blood Pressure 137/54 160/70 (mmHg) O2 Sat by Pulse 95 97 95 Oximetry Oxygen Devices in Use Now: Nasal Cannula Appearance: Patient is an 81yo female who appears stated age and is sitting in the bed in [facility]. Eyes: No Scleral Icterus, PERRLA Ears/Nose/Mouth/Throat: NL Teeth, Lips, Gums, Clear Oropharnyx, Mucous Membranes Moist Neck: NL Appearance and Movements; NL JVP, Trachea Midline Respiratory: Symmetrical Chest Expansion and Respiratory Effort, Clear to Auscultation, - - Diminished Cardiovascular: NL Sounds; No Murmurs; No JVD, RRR, No Edema Abdominal: NL Sounds; No Tenderness; No Distention, No Hepatosplenomegaly Lymphatic: No Cervical Adenopathy Extremities: No Edema, No Clubbing, Cyanosis Skin: No Nodules or Sclerosis, - - Large incision on back covered by dressing. Neurological: Alert and Oriented x 3, - - Cn II-XII intact. Result Diagrams: 07/19/17 05:08 07/19/17 05:09 Additional Lab and Data: . Microbiology and Other Data: . Assess/Plan/Problems-Billing Assessment: Ms. Judge is an 81yo female with a PMH mcrae HTN, COPD and known T12 compression fracture who is admitted with radicular symptoms and is now s/p surgery on Wednesday 07/12 with post-op anemia and ileus. - Patient Problems (1) Acute blood loss anemia Current Visit: Yes Status: Acute Code(s): D62 - ACUTE POSTHEMORRHAGIC ANEMIA SNOMED Code(s): 147478915 Comment: Hgb 891, monitor. Transfused 3 units this hospitalization. Patient had an estimate of 1,000ml EBL in surgery. Likely contributing to lethargy. Improving, will need iron studies outpatient if persistently anemic. (2) Chest pain Current Visit: Yes Status: Acute Code(s): R07.9 - CHEST PAIN, UNSPECIFIED SNOMED Code(s): 69698578 Comment: Trops peaked at 0.11. No evidence of ischemia on EKG. Echo only showing worsening aortic stenosis, from mild to moderate. Suspect demand ischemia in setting of surgery, pain, fluid overload, and aortic stenosis. Antiplatelets and coagulants not indicated due to recent surgery. Metoprolol and atorvastatin started. CTA chest suboptimal but no evidence of PE. Likely Musculoskeletal in origin. Treated with Lidocaine patch. (3) T12 vertebral fracture Current Visit: Yes Status: Acute Code(s): S22.089A - UNSP FRACTURE OF T11- T12 VERTEBRA, INIT FOR CLOS FX SNOMED Code(s): 538153910 Comment: Management per Dr. Melara, s/p surgery 07/12/17, LOPEZ drains removed. Rich replaced for urinary retention. Will attempt void trial again today. Pain meds prn. Will decrease amount to help with lethargy. Continue PT. Will likely need Rehab at discharge. (4) COPD (chronic obstructive pulmonary disease) Current Visit: Yes Status: Acute Code(s): J44.9 - CHRONIC OBSTRUCTIVE PULMONARY DISEASE, UNSPECIFIED SNOMED Code(s): 22970755 Comment: No evidence of acute exacerbation. Duoneb PRN. Continue Dulera. (5) Constipation Current Visit: Yes Status: Acute Code(s): K59.00 - CONSTIPATION, UNSPECIFIED SNOMED Code(s): 66146387 Comment: Related to opiate use. Continue Miralax and colace. Having multiple bowel movements. (6) HTN (hypertension) Current Visit: Yes Status: Acute Code(s): I10 - ESSENTIAL (PRIMARY) HYPERTENSION SNOMED Code(s): 54145327 Comment: SBP 120s to 150s. Hold lisinopril/hctz in setting of acute blood loss anemia. Will resume when clinically indicated. On metoprolol for demand ischemia. (7) Heart murmur Current Visit: Yes Status: Acute Code(s): R01.1 - CARDIAC MURMUR, UNSPECIFIED SNOMED Code(s): 17983710 Comment: Patient had echo at [place] 6-9 months ago. Report shows mild aortic stenosis and preserved EF. Has progressed to moderate on recent echo. (8) Acute kidney injury Current Visit: Yes Status: Acute Code(s): N17.9 - ACUTE KIDNEY FAILURE, UNSPECIFIED SNOMED Code(s): 28520377 Comment: Resolved with fluids. (9) Hyponatremia Current Visit: Yes Status: Acute Code(s): E87.1 - HYPO-OSMOLALITY AND HYPONATREMIA SNOMED Code(s): 32107722 Comment: Na 131, monitor. Hold thiazide. Improving slowly. (10) Hyperkalemia Current Visit: Yes Status: Acute Code(s): E87.5 - HYPERKALEMIA SNOMED Code (s): 70546583 Comment: Resolved. Likely due to BASSEM. (11) SOB (shortness of breath) Current Visit: Yes Status: Acute Code(s): R06.02 - SHORTNESS OF BREATH SNOMED Code(s): 163453123 Comment: Acute CHF with pulmonary edema on cxray likely secondary to IVF and moderate aortic stenosis. Lasix 20mg IV yesterday. Improved today, still on 2L NC. (12) Ileus Current Visit: Yes Status: Acute Code(s): K56.7 - ILEUS, UNSPECIFIED SNOMED Code(s): 831696942 Comment: Bilious vomiting today again, will restart clears Reported multiple BMs yesterday but none today. No indication for NG tube unless more severe vomiting. No nausea. Abdomen not overly distended. (13) Full code status Current Visit: Yes Status: Acute Code(s): Z78.9 - OTHER SPECIFIED HEALTH STATUS SNOMED Code(s): 393118939 Comment: (14) Tachycardia Current Visit: Yes Status: Acute Code(s): R00.0 - TACHYCARDIA, UNSPECIFIED SNOMED Code(s): 5095193 Comment: Poor oral intake and progressive tachycardia, appears clinically dry, will give maintenance fluids until taking more PO and monitor. (15) DVT prophylaxis Current Visit: Yes Status: Acute Code(s): MRZ9633 - SNOMED Code(s): 020680970 Comment: SCDs only with surgery and acute blood loss anemia. Status and Disposition: Admitted inpatient. PT following. Anticipate need for rehab at time of discharge.
[2017-07-19] MEDS: Atorvastatin* 40 MG TAB PO SCH (17:05)
--- NOTE | 2017-07-19 18:13 | RAD ---
HISTORY: Ileus COMPARISONS: July 16, 2017 VIEWS: Frontal views of the abdomen. FINDINGS: BOWEL: There is diffuse distention of small bowel loops with gaseous distention of the colon, without dilatation. This is similar to the previous examination. CALCULI: There are no abnormal calculi. BONES AND SOFT TISSUES: There is post surgical change to the spine. OTHER FINDINGS: There is no appreciable free intracranial gas. IMPRESSION: THERE IS PERSISTENT DISTENTION OF SMALL BOWEL AND LARGE BOWEL, WITHOUT DILATATION OR TRANSITION POINT, SIMILAR TO THE PREVIOUS EXAMINATION AND MOST SUGGESTIVE OF ILEUS. RECOMMEND CONTINUED ATTENTION ON FOLLOW-UP EXAMINATION.
[2017-07-19] MEDS: Calcium Carbonate CHEW TAB* 500 MG (TUMS) PO PRN (21:06)
[2017-07-19] MEDS: NS 0.9% 1000 ML* 1,000 ML IV SCH (21:41)
[2017-07-19] MEDS: Lidocaine Patch REMOVE* 1 NOTE MISC SCH (21:43)
[2017-07-20] MEDS: ALPRAZolam TAB* 0.5 MG PO PRN (00:55)
[2017-07-20] MEDS: Cyclobenzaprine TAB* 10 MG PO PRN (00:55)
[2017-07-20] MEDS: Ondansetron ODT TAB* 4 MG SL PRN (03:21)
[2017-07-20 05:35] LABS: ABS Basophils 0 10^3/ul (0-0.2); ABS Eosinophils 0 10^3/ul (0-0.6); ABS Lymphocytes 0.5 10^3/ul (1.0-4.8); ABS Monocytes 0.9 10^3/ul (0-0.8); ABS Neutrophils 4.5 10^3/ul (1.5-7.7); ABS Nucleated RBC 0 10^3/ul; Eosinophil % 0.1 % (0-6); Hematocrit 27 % (35-47); Hemoglobin 9.4 g/dl (12.0-16.0); Lymphocyte % 8.4 % (25-47); Mean Corpuscular HGB Conc 35 g/dl (31-36); Mean Corpuscular Hemoglobin 34 pg (27-31); Mean Corpuscular Volume 95 fL (80-97); Mean Platelet Volume 6.5 um3 (7.4-10.4); Nucleated Red Blood Cells % 0; Platelet Count 330 10^3/ul (150-450); Red Blood Count 2.79 10^6/ul (4.0-5.4); Red Cell Distribution Width 16 % (10.5-15); White Blood Count 5.9 10^3/ul (3.5-10.8)
[2017-07-20 05:57] LABS: EGFR Non-African American 137.6 (>60)
[2017-07-20] MEDS: traMADol TAB* 50 MG PO PRN (06:16)
--- NOTE | 2017-07-20 08:22 | PN ---
Progress Note - Progress Note Date of Service: 07/20/17 SOAP: Subjective: [S/p T10-L2 fusion for T12 fracture and L4-5 decompression for stenosis, POD#8. Patient remains unmotivated to get up out of bed and ambulate. Denies nausea, abdominal pain, back pain, radiculopathy. ] Objective: [Vital Signs: Temp Pulse Resp BP Pulse Ox 97.9 F 102 20 136/53 98 07/20/17 03:09 07/20/17 03:09 07/20/17 06:16 07/20/17 03:09 07/20/17 03:09 General: Responds to questions but does not open eyes during encounter. Neuro: Right foot weakness eversion. Incision: Intact and without swelling, erythema, infection. Abdomen: Soft, nontender. Assessment: [Stable but unmotivated to recover. Ileus.] Plan: [1. Has bed at [facility] when medically stable to discharge. 2. Encourage up out of bed to ambulate and to chair. 3. Pain management with tylenol and cyclobenzaprine.]
[2017-07-20] MEDS: Docusate CAP* 100 MG PO SCH ×2 (10:12→22:18)
[2017-07-20] MEDS: Metoprolol Tartrate TAB* 25 MG PO SCH ×2 (10:12→22:18)
[2017-07-20] MEDS: Magnesium Hydroxide LIQ* 30 ML UDC PO SCH ×2 (10:12→22:19)
[2017-07-20] MEDS: Lidocaine PATCH 5%* 1 PATCH TRANSDERM SCH (10:21)
[2017-07-20] MEDS: NS 0.9% 1000 ML* 1,000 ML IV SCH ×2 (10:56→17:12)
[2017-07-20] MEDS ORDERED: Magnesium Sulfate 2 GM IV* 2 GM/50 ML BAG IVPB ONE (13:30)
--- NOTE | 2017-07-20 18:06 | PN ---
Subjective Date of Service: 07/20/17 Interval History: Patient again lethargic today. Patient states that she doesn't think that she's gonna get better and stated that she was not willing to try. Patient states that she was depressed about her dying. Patient denies F/C, N/V, abdominal pain, diarrhea, Cp, SOB. Patient complains of persistent pain in her chest and pain in her back upon movement. Discussed with daughter Ayleen on arrival that patient appeared much more alert. Patient stated she was willing to try and would get up to the chair tonight. Patient and family declined psychiatric consultation and antidepressant therapy. Family History: Findings - F had leukemia, M age 83 [place]. Social History: Findings - Lives alone. Quit smoking 16 yrs ago. SDM is her daughter Daniela Winchester. No alcohol abuse. Past Medical History: Findings - 5 children. Appy, BL cataract surgery, thyroid surgery 50 yrs ago, bunion surgery. COPD, HTN. Objective Active Medications: Acetaminophen (Tylenol Tab*) 650 mg PO Q4H PRN PRN Reason: FEVER/PAIN Last Admin: 07/19/17 21:07 Dose: 650 mg Albuterol/Ipratropium (Duoneb (Albuterol 2.5 Mg/Ipratropium 0.5 Mg)) 1 neb INH Q4H PRN PRN Reason: SOB/WHEEZING Atorvastatin Calcium (Lipitor*) 40 mg PO 1700 [facility] Last Admin: 07/19/17 17:05 Dose: 40 mg Calcium Carbonate (Tums*) 500 mg PO BID PRN PRN Reason: HEARTBURN Last Admin: 07/19/17 21:06 Dose: 500 mg Cyclobenzaprine HCl (Flexeril Tab*) 10 mg PO BID PRN PRN Reason: SPASMS - BACK Last Admin: 07/20/17 00:55 Dose: 10 mg Docusate Sodium (Colace Cap*) 200 mg PO BID [facility] Last Admin: 07/20/17 10:12 Dose: 200 mg Sodium Chloride (Ns 0.9% 1000 Ml*) 1,000 mls @ 125 mls/hr IV PER RATE [facility] Last Admin: 07/20/17 17:12 Dose: 125 mls/hr Lidocaine (Lidoderm 5% Patch*) 1 patch TRANSDERM DAILY [facility] Last Admin: 07/20/17 10:21 Dose: 1 patch Magnesium Hydroxide (Milk Of Magnesia Liq*) 30 ml PO BID [facility] Last Admin: 07/20/17 10:12 Dose: 30 ml Metoprolol Tartrate (Lopressor Tab*) 12.5 mg PO Q12HR [facility] Last Admin: 07/20/17 10:12 Dose: 12.5 mg Mometasone Furoate/Formoterol Fumar (Dulera 200/5 Mdi*) 2 puff INH BID PRN; Protocol PRN Reason: SOB/WHEEZING Ondansetron HCl (Zofran Odt Tab*) 4 mg SL Q6H PRN PRN Reason: NAUSEA/VOMITING Last Admin: 07/20/17 03:21 Dose: 4 mg Pharmacy Profile Note (Lidocaine Patch Remove*) 1 note N/A 2100 [facility] Last Admin: 07/19/17 21:43 Dose: 1 note Polyethylene Glycol/Electrolytes (Miralax*) 17 gm PO DAILY PRN PRN Reason: CONSTIPATION Tramadol HCl (Ultram*) 50 mg PO Q6HR PRN PRN Reason: PAIN Last Admin: 07/20/17 06:16 Dose: 50 mg Vital Signs - 8 hr 07/20/17 07/20/17 07/20/17 10:04 11:12 11:29 Temperature 97.4 F Pulse Rate 103 107 Respiratory 16 18 16 Rate Blood Pressure 132/49 (mmHg) O2 Sat by Pulse 99 96 Oximetry 07/20/17 15:52 Temperature 98.9 F Pulse Rate 100 Respiratory 20 Rate Blood Pressure 127/52 (mmHg) O2 Sat by Pulse 96 Oximetry Oxygen Devices in Use Now: Nasal Cannula Appearance: Patient is an 81yo male who appears stated age and is sitting in the bed in [facility]. Eyes: No Scleral Icterus, PERRLA Ears/Nose/Mouth/Throat: NL Teeth, Lips, Gums, Clear Oropharnyx, Mucous Membranes Moist Neck: NL Appearance and Movements; NL JVP, Trachea Midline Respiratory: Symmetrical Chest Expansion and Respiratory Effort, Clear to Auscultation Cardiovascular: NL Sounds; No Murmurs; No JVD, RRR, No Edema Abdominal: No Hepatosplenomegaly, - - Distended, Normoactive bowel sounds. Lymphatic: No Cervical Adenopathy Extremities: No Edema, No Clubbing, Cyanosis Skin: No Nodules or Sclerosis, - - Back incision covered with large dressing. Neurological: Alert and Oriented x 3, - - CN II-XII intact. Result Diagrams: 07/20/17 05:06 07/20/17 05:06 Additional Lab and Data: . Microbiology and Other Data: . Assess/Plan/Problems-Billing Assessment: Ms. Judge is an 81yo female with a H mcrae HTN, COPD and known T12 compression fracture who is admitted with radicular symptoms and is now s/p surgery on Wednesday 07/12 with post-op anemia and ileus. - Patient Problems (1) Ileus Current Visit: Yes Status: Acute Code(s): K56.7 - ILEUS, UNSPECIFIED SNOMED Code(s): 872086100 Comment: No vomiting today and no nausea since AM. Patient encouraged to ambulate and move around. Patient declines NG tube. Patient tolerating sips of clears. Patient encourged to chew gum. Will advence diet as tolerated. Had BM this AM, will monitor. Abdominal XR from yesterday shows persistent but improved Ileus. (2) Depression Current Visit: Yes Status: Acute Code(s): F32.9 - MAJOR DEPRESSIVE DISORDER , SINGLE EPISODE, UNSPECIFIED SNOMED Code(s): 40678409 Comment: Patient states that she is depressed about the of her and thinks she will not get better. Discussed with patient's family and patient stated that she was willing to try to get better when assured that it was attainable. Patient and family declined psychiatric consult and antidepressant therapy. Discussed patient's hopelessness with family and how she acts much more lively when they are around. Family willing to provide more support and encouragement to patient. (3) Acute blood loss anemia Current Visit: Yes Status: Acute Code(s): D62 - ACUTE POSTHEMORRHAGIC ANEMIA SNOMED Code(s): 476024025 Comment: Hgb 9.4, monitor. Transfused 3 units this hospitalization. Patient had an estimate of 1,000ml EBL in surgery. Likely contributing to lethargy. Improving, will need iron studies outpatient if persistently anemic. (4) Chest pain Current Visit: Yes Status: Acute Code(s): R07.9 - CHEST PAIN, UNSPECIFIED SNOMED Code(s): 27161730 Comment: Trops peaked at 0.11. No evidence of ischemia on EKG. Echo only showing worsening aortic stenosis, from mild to moderate. Suspect demand ischemia in setting of surgery, pain, fluid overload, and aortic stenosis. Antiplatelets and coagulants not indicated due to recent surgery. Metoprolol and atorvastatin started. CTA chest suboptimal but no evidence of PE. Likely Musculoskeletal in origin. Treated with Lidocaine patch. (5) T12 vertebral fracture Current Visit: Yes Status: Acute Code(s): S22.089A - UNSP FRACTURE OF T11- T12 VERTEBRA, INIT FOR CLOS FX SNOMED Code(s): 927551912 Comment: Management per Dr. Melara, s/p surgery 07/12/17, LOPEZ drains removed. Rich replaced for urinary retention again. Pain meds prn. Will decrease amount to help with lethargy. Control only with Flexeril and tylenol. Continue PT. Will likely need Rehab at discharge. (6) COPD (chronic obstructive pulmonary disease) Current Visit: Yes Status: Acute Code(s): J44.9 - CHRONIC OBSTRUCTIVE PULMONARY DISEASE, UNSPECIFIED SNOMED Code(s): 34807717 Comment: No evidence of acute exacerbation. Duoneb PRN. Continue Dulera. Wean O2 as tolerated. (7) Constipation Current Visit: Yes Status: Acute Code(s): K59.00 - CONSTIPATION, UNSPECIFIED SNOMED Code(s): 34127749 Comment: Related to opiate use. Continue Miralax and colace. Having multiple bowel movements. (8) HTN (hypertension) Current Visit: Yes Status: Acute Code(s): I10 - ESSENTIAL (PRIMARY) HYPERTENSION SNOMED Code(s): 41397992 Comment: SBP 120s to 150s. Hold lisinopril/hctz in setting of acute blood loss anemia. Will resume when clinically indicated. On metoprolol for demand ischemia. (9) Heart murmur Current Visit: Yes Status: Acute Code(s): R01.1 - CARDIAC MURMUR, UNSPECIFIED SNOMED Code(s): 81718545 Comment: Patient had echo at [place] 6-9 months ago. Report shows mild aortic stenosis and preserved EF. Has progressed to moderate on recent echo. (10) Acute kidney injury Current Visit: Yes Status: Acute Code(s): N17.9 - ACUTE KIDNEY FAILURE, UNSPECIFIED SNOMED Code(s): 57596922 Comment: Resolved with fluids. (11) Hyponatremia Current Visit: Yes Status: Acute Code(s): E87.1 - HYPO-OSMOLALITY AND HYPONATREMIA SNOMED Code(s): 14297204 Comment: Na 131, monitor. Hold thiazide. Improving slowly. (12) Hyperkalemia Current Visit: Yes Status: Acute Code(s): E87.5 - HYPERKALEMIA SNOMED Code (s): 29275551 Comment: Resolved. Likely due to BASSEM. (13) SOB (shortness of breath) Current Visit: Yes Status: Acute Code(s): R06.02 - SHORTNESS OF BREATH SNOMED Code(s): 817494087 Comment: Acute CHF with pulmonary edema on cxray likely secondary to IVF and moderate aortic stenosis improved with Lasix, No crackles on Exam, wean O2 as tolerated. (14) Full code status Current Visit: Yes Status: Acute Code(s): Z78.9 - OTHER SPECIFIED HEALTH STATUS SNOMED Code(s): 417836649 Comment: (15) Tachycardia Current Visit: Yes Status: Acute Code(s): R00.0 - TACHYCARDIA, UNSPECIFIED SNOMED Code(s): 8530481 Comment: Poor oral intake and progressive tachycardia, appears clinically dry, will give maintenance fluids until taking more PO and monitor. Will bolus for worsening tachycardia and poor urine output. (16) DVT prophylaxis Current Visit: Yes Status: Acute Code(s): IVY3189 - SNOMED Code(s): 437898475 Comment: SCDs only with surgery and acute blood loss anemia. Status and Disposition: Admitted inpatient. PT following. Anticipate need for rehab at time of discharge.
[2017-07-20] MEDS: Atorvastatin* 40 MG TAB PO SCH (18:09)
[2017-07-20] MEDS: Acetaminophen TAB* 325 MG PO PRN (19:43)
[2017-07-20] MEDS ORDERED: Magnesium Sulfate 1 GM IV* 1 GM/100 ML BAG IV ONE (21:14)
[2017-07-20] MEDS: Lidocaine Patch REMOVE* 1 NOTE MISC SCH (22:19)
[2017-07-21] MEDS: Acetaminophen TAB* 325 MG PO PRN ×5 (00:16→21:17)
[2017-07-21] MEDS: NS 0.9% 1000 ML* 1,000 ML IV SCH ×3 (00:20→23:38)
[2017-07-21] MEDS: Cyclobenzaprine TAB* 10 MG PO PRN (03:24)
[2017-07-21 06:15] LABS: ABS Basophils 0 10^3/ul (0-0.2); ABS Eosinophils 0.1 10^3/ul (0-0.6); ABS Lymphocytes 0.9 10^3/ul (1.0-4.8); ABS Monocytes 0.7 10^3/ul (0-0.8); ABS Neutrophils 3.6 10^3/ul (1.5-7.7); ABS Nucleated RBC 0 10^3/ul; Eosinophil % 1.1 % (0-6); Hematocrit 25 % (35-47); Hemoglobin 8.7 g/dl (12.0-16.0); Lymphocyte % 17.5 % (25-47); Mean Corpuscular HGB Conc 35 g/dl (31-36); Mean Corpuscular Hemoglobin 33 pg (27-31); Mean Corpuscular Volume 96 fL (80-97); Mean Platelet Volume 6.6 um3 (7.4-10.4); Nucleated Red Blood Cells % 0.1; Platelet Count 280 10^3/ul (150-450); Red Blood Count 2.62 10^6/ul (4.0-5.4); Red Cell Distribution Width 16 % (10.5-15); White Blood Count 5.3 10^3/ul (3.5-10.8)
[2017-07-21 06:37] LABS: EGFR Non-African American 158.1 (>60)
[2017-07-21] MEDS: Magnesium Hydroxide LIQ* 30 ML UDC PO SCH ×2 (08:24→21:19)
[2017-07-21] MEDS: Docusate CAP* 100 MG PO SCH ×2 (08:24→21:16)
[2017-07-21] MEDS: Metoprolol Tartrate TAB* 25 MG PO SCH (08:28)
[2017-07-21] MEDS: Lidocaine PATCH 5%* 1 PATCH TRANSDERM SCH (08:30)
--- NOTE | 2017-07-21 12:23 | PN ---
Subjective Date of Service: 07/21/17 Interval History: Patient much more alert and cooperative. Was able to get out of bed this AM, work with PT and sit in the chair for a while. Is having BMs and passing flatus. Pain 5/10 in right chest. Patient denies N/V, abdominal pain, other CP, SOB, F/C, dizziness, palpitations, or other pain. Pain in bakc only with movement. Difficulty with ambulation. Will agree to antidepressant therapy this AM. Family History: Findings - F had leukemia, M age 83 [place]. Social History: Findings - Lives alone. Quit smoking 16 yrs ago. SDM is her daughter Daniela Winchester. No alcohol abuse. Past Medical History: Findings - 5 children. Appy, BL cataract surgery, thyroid surgery 50 yrs ago, bunion surgery. COPD, HTN. Objective Active Medications: Acetaminophen (Tylenol Tab*) 650 mg PO Q4H PRN PRN Reason: FEVER/PAIN Last Admin: 07/21/17 10:55 Dose: 650 mg Albuterol/Ipratropium (Duoneb (Albuterol 2.5 Mg/Ipratropium 0.5 Mg)) 1 neb INH Q4H PRN PRN Reason: SOB/WHEEZING Amitriptyline HCl (Elavil Tab*) 50 mg PO BEDTIME [facility] Atorvastatin Calcium (Lipitor*) 40 mg PO 1700 [facility] Last Admin: 07/20/17 18:09 Dose: 40 mg Calcium Carbonate (Tums*) 500 mg PO BID PRN PRN Reason: HEARTBURN Last Admin: 07/19/17 21:06 Dose: 500 mg Docusate Sodium (Colace Cap*) 200 mg PO BID [facility] Last Admin: 07/21/17 08:24 Dose: Not Given Sodium Chloride (Ns 0.9% 1000 Ml*) 1,000 mls @ 125 mls/hr IV PER RATE [facility] Last Admin: 07/21/17 11:38 Dose: 125 mls/hr Lidocaine (Lidoderm 5% Patch*) 1 patch TRANSDERM DAILY [facility] Last Admin: 07/21/17 08:30 Dose: 1 patch Magnesium Hydroxide (Milk Of Magnesia Liq*) 30 ml PO BID [facility] Last Admin: 07/21/17 08:24 Dose: Not Given Metoprolol Tartrate (Lopressor Tab*) 12.5 mg PO Q12HR [facility] Last Admin: 07/21/17 08:28 Dose: 12.5 mg Mometasone Furoate/Formoterol Fumar (Dulera 200/5 Mdi*) 2 puff INH BID PRN; Protocol PRN Reason: SOB/WHEEZING Ondansetron HCl (Zofran Odt Tab*) 4 mg SL Q6H PRN PRN Reason: NAUSEA/VOMITING Last Admin: 07/20/17 03:21 Dose: 4 mg Pharmacy Profile Note (Lidocaine Patch Remove*) 1 note N/A 2100 [facility] Last Admin: 07/20/17 22:19 Dose: 1 note Polyethylene Glycol/Electrolytes (Miralax*) 17 gm PO DAILY PRN PRN Reason: CONSTIPATION Vital Signs - 8 hr 07/21/17 07/21/17 07/21/17 04:28 08:41 11:30 Temperature 97.9 F 97.6 F 98.0 F Pulse Rate 88 104 88 Respiratory 20 20 18 Rate Blood Pressure 129/47 135/70 148/51 (mmHg) O2 Sat by Pulse 99 99 100 Oximetry Oxygen Devices in Use Now: Nasal Cannula Appearance: Patient is an 81yo female who appears stated age and is sitting in the bed in [facility]. Eyes: No Scleral Icterus, PERRLA Ears/Nose/Mouth/Throat: NL Teeth, Lips, Gums, Clear Oropharnyx, Mucous Membranes Moist Neck: NL Appearance and Movements; NL JVP, Trachea Midline Respiratory: Symmetrical Chest Expansion and Respiratory Effort, - - Dimininshed , no adventitous breath sounds. Cardiovascular: NL Sounds; No Murmurs; No JVD, RRR, No Edema Abdominal: NL Sounds; No Tenderness; No Distention, No Hepatosplenomegaly, - - Somewhat bloated. Decreased from previous exam. Lymphatic: No Cervical Adenopathy Extremities: No Edema, No Clubbing, Cyanosis Skin: No Nodules or Sclerosis Neurological: Alert and Oriented x 3, - - CN II-XII intact. Result Diagrams: 07/23/17 05:05 07/23/17 05:05 Additional Lab and Data: . Microbiology and Other Data: . Assess/Plan/Problems-Billing Assessment: Ms. Judge is an 81yo female with a H mcrae HTN, COPD and known T12 compression fracture who is admitted with radicular symptoms and is now s/p surgery on Wednesday 07/12 with post-op anemia and ileus. - Patient Problems (1) Ileus Current Visit: Yes Status: Acute Code(s): K56.7 - ILEUS, UNSPECIFIED SNOMED Code(s): 672760579 Comment: No nausea or vomiting today. Patient encouraged to ambulate and move around. Patient tolerating Increasing amounts of full liquids. Advance diet. Multiple small stools. (2) Tachycardia Current Visit: Yes Status: Acute Code(s): R00.0 - TACHYCARDIA, UNSPECIFIED SNOMED Code(s): 3307822 Comment: Likely due to dehydration, pain and deconditioning. Improved with bolus but returned. Exacerbated by pain. Fluids discontinued due to worsening SOB and edema. EKG shows sinus tachycardia. Resume Metoprolol. (3) Depression Current Visit: Yes Status: Acute Code(s): F32.9 - MAJOR DEPRESSIVE DISORDER , SINGLE EPISODE, UNSPECIFIED SNOMED Code(s): 82487415 Comment: Patient states that she is depressed about the of her and thinks she will not get better. Discussed with patient's family and patient stated that she was willing to try to get better when assured that it was attainable. Patient and family declined psychiatric consult. Discussed patient's hopelessness with family and how she acts much more lively when they are around. Family willing to provide more support and encouragement to patient. Patient consented to elavil treatment this AM for both depression and Neuropathic pain. Patients affect and mood are both improved. (4) Acute blood loss anemia Current Visit: Yes Status: Acute Code(s): D62 - ACUTE POSTHEMORRHAGIC ANEMIA SNOMED Code(s): 497932960 Comment: Stable. Transfused 3 units this hospitalization. Patient had an estimate of 1,000ml EBL in surgery. Likely contributing to lethargy. Will need iron studies outpatient if persistently anemic. (5) Chest pain Current Visit: Yes Status: Acute Code(s): R07.9 - CHEST PAIN, UNSPECIFIED SNOMED Code(s): 78018527 Comment: Trops peaked at 0.11. No evidence of ischemia on EKG. Echo only showing worsening aortic stenosis, from mild to moderate. Suspect demand ischemia in setting of surgery, pain, fluid overload, and aortic stenosis. Antiplatelets and coagulants not indicated due to recent surgery. Metoprolol and atorvastatin started. CTA chest suboptimal but no evidence of PE. Likely Musculoskeletal in origin. Treated with Lidocaine patch. (6) T12 vertebral fracture Current Visit: Yes Status: Acute Code(s): S22.089A - UNSP FRACTURE OF T11- T12 VERTEBRA, INIT FOR CLOS FX SNOMED Code(s): 531759128 Comment: Management per Dr. Melara, s/p surgery 07/12/17, LOPEZ drains removed. Zepeda replaced for urinary retention again. Pain meds prn. Will decrease amount to help with lethargy. Control only with Flexeril and tylenol. Elavil for Pain control. Continue PT. [facility] at discharge. (7) COPD (chronic obstructive pulmonary disease) Current Visit: Yes Status: Acute Code(s): J44.9 - CHRONIC OBSTRUCTIVE PULMONARY DISEASE, UNSPECIFIED SNOMED Code(s): 42405629 Comment: No evidence of acute exacerbation. Duoneb PRN. Continue Dulera. Wean O2 as tolerated. DOwn to 1L NC (8) Constipation Current Visit: Yes Status: Acute Code(s): K59.00 - CONSTIPATION, UNSPECIFIED SNOMED Code(s): 40677621 Comment: Related to opiate use. Continue Miralax, Colace and MOM PRN Having multiple bowel movements. (9) HTN (hypertension) Current Visit: Yes Status: Acute Code(s): I10 - ESSENTIAL (PRIMARY) HYPERTENSION SNOMED Code(s): 42575309 Comment: SBP 120s to 150s. Hold lisinopril in setting of acute blood loss anemia. Will resume when clinically indicated. Resume HCTZ, Metoprolol. (10) Heart murmur Current Visit: Yes Status: Acute Code(s): R01.1 - CARDIAC MURMUR, UNSPECIFIED SNOMED Code(s): 63081166 Comment: Patient had echo at [place] 6-9 months ago. Report shows mild aortic stenosis and preserved EF. Has progressed to moderate on recent echo. (11) Acute kidney injury Current Visit: Yes Status: Acute Code(s): N17.9 - ACUTE KIDNEY FAILURE, UNSPECIFIED SNOMED Code(s): 74419102 Comment: Resolved with fluids. (12) Hyponatremia Current Visit: Yes Status: Acute Code(s): E87.1 - HYPO-OSMOLALITY AND HYPONATREMIA SNOMED Code(s): 40733941 Comment: Improving slowly. Resume HCTZ (13) Hyperkalemia Current Visit: Yes Status: Acute Code(s): E87.5 - HYPERKALEMIA SNOMED Code (s): 48154120 Comment: Resolved. Likely due to BASSEM. (14) SOB (shortness of breath) Current Visit: Yes Status: Acute Code(s): R06.02 - SHORTNESS OF BREATH SNOMED Code(s): 244137154 Comment: Acute CHF with pulmonary edema on cxray likely secondary to IVF and moderate aortic stenosis improved with Lasix, No crackles on Exam, wean O2 as tolerated. (15) Urinary retention Current Visit: Yes Status: Acute Code(s): R33.9 - RETENTION OF URINE, UNSPECIFIED SNOMED Code(s): 783090171 Comment: Unknown cause, Has had to have zepeda placed 3 times this hospitalization. US unremarkable. Will send with Zepeda and have removed by urology. Needs urodynamic testing to assess for nerve damage related to spinal pathology. (16) DVT prophylaxis Current Visit: Yes Status: Acute Code(s): GAK6355 - SNOMED Code(s): 164384919 Comment: SCDs only with surgery and acute blood loss anemia. (17) Full code status Current Visit: Yes Status: Acute Code(s): Z78.9 - OTHER SPECIFIED HEALTH STATUS SNOMED Code(s): 984388192 Comment: Status and Disposition: Admitted inpatient. PT following. Hopeful discharge to [facility] tomorrow.
[2017-07-21] MEDS: Atorvastatin* 40 MG TAB PO SCH (17:20)
[2017-07-21] MEDS: Amitriptyline TAB* 50 MG PO SCH (21:16)
[2017-07-21] MEDS: Lidocaine Patch REMOVE* 1 NOTE MISC SCH (21:19)
[2017-07-21] MEDS: Mometasone/Formoter 200/5 MDI INH PRN (21:50)
[2017-07-22 06:27] LABS: Hematocrit 29 % (35-47); Hemoglobin 9.7 g/dl (12.0-16.0)
[2017-07-22 06:47] LABS: EGFR Non-African American 173.4 (>60)
[2017-07-22] MEDS ORDERED: Potassium Chloride LIQUID* 20 MEQ PACKET PO ONE (06:54)
[2017-07-22] MEDS: Magnesium Hydroxide LIQ* 30 ML UDC PO SCH (07:39)
--- NOTE | 2017-07-22 07:51 | PN ---
Progress Note - Progress Note Date of Service: 07/22/17 SOAP: Subjective: []Seems better this am Has had a couple of BM's Still with incisional discomfort Objective: []Neuro stable Still with evertor weakness on right Otherwise intact Assessment: [] Making slow progress Plan: []Continue to increase activity To [facility] early in week
[2017-07-22] MEDS: Docusate CAP* 100 MG PO SCH ×2 (08:04→20:19)
[2017-07-22] MEDS: Lidocaine PATCH 5%* 1 PATCH TRANSDERM SCH (08:05)
[2017-07-22] MEDS: Acetaminophen TAB* 325 MG PO PRN ×2 (08:05→21:04)
[2017-07-22] MEDS: NS 0.9% 1000 ML* 1,000 ML IV SCH (12:55)
[2017-07-22] MEDS: Hydrochlorothiazide TAB* 25 MG PO SCH (13:18)
--- NOTE | 2017-07-22 14:31 | PN ---
Subjective Date of Service: 07/22/17 Interval History: Patient is feeling better, persistent pain and still tired but more energy than she has had for many days. Able to ambulate with a 1 assist today. Patient denies F/C, N/V, abdominal pain, SOB, or other pain. Patient has poor appetite but has been trying to eat more and is tolerating it well. Family History: Findings - F had leukemia, M age 83 [place]. Social History: Findings - Lives alone. Quit smoking 16 yrs ago. SDM is her daughter Daniela Winchester. No alcohol abuse. Past Medical History: Findings - 5 children. Appy, BL cataract surgery, thyroid surgery 50 yrs ago, bunion surgery. COPD, HTN. Objective Active Medications: Acetaminophen (Tylenol Tab*) 650 mg PO Q4H PRN PRN Reason: FEVER/PAIN Last Admin: 07/22/17 08:05 Dose: 650 mg Albuterol/Ipratropium (Duoneb (Albuterol 2.5 Mg/Ipratropium 0.5 Mg)) 1 neb INH Q4H PRN PRN Reason: SOB/WHEEZING Amitriptyline HCl (Elavil Tab*) 50 mg PO BEDTIME [facility] Last Admin: 07/21/17 21:16 Dose: 50 mg Atorvastatin Calcium (Lipitor*) 40 mg PO 1700 [facility] Last Admin: 07/21/17 17:20 Dose: 40 mg Calcium Carbonate (Tums*) 500 mg PO BID PRN PRN Reason: HEARTBURN Last Admin: 07/19/17 21:06 Dose: 500 mg Docusate Sodium (Colace Cap*) 200 mg PO BID [facility] Last Admin: 07/22/17 08:04 Dose: 200 mg Hydrochlorothiazide (Hydrodiuril Tab*) 12.5 mg PO DAILY [facility] Last Admin: 07/22/17 13:18 Dose: 12.5 mg Sodium Chloride (Ns 0.9% 1000 Ml*) 1,000 mls @ 75 mls/hr IV PER RATE [facility] Last Admin: 07/22/17 12:55 Dose: 75 mls/hr Lidocaine (Lidoderm 5% Patch*) 1 patch TRANSDERM DAILY [facility] Last Admin: 07/22/17 08:05 Dose: 1 patch Magnesium Hydroxide (Milk Of Magnesia Liq*) 30 ml PO BID [facility] Last Admin: 07/22/17 07:39 Dose: Not Given Mometasone Furoate/Formoterol Fumar (Dulera 200/5 Mdi*) 2 puff INH BID PRN; Protocol PRN Reason: SOB/WHEEZING Last Admin: 07/21/17 21:50 Dose: 2 puff Ondansetron HCl (Zofran Odt Tab*) 4 mg SL Q6H PRN PRN Reason: NAUSEA/VOMITING Last Admin: 07/20/17 03:21 Dose: 4 mg Pharmacy Profile Note (Lidocaine Patch Remove*) 1 note N/A 2100 [facility] Last Admin: 07/21/17 21:19 Dose: 1 note Polyethylene Glycol/Electrolytes (Miralax*) 17 gm PO DAILY PRN PRN Reason: CONSTIPATION Vital Signs - 8 hr 07/22/17 07:17 Temperature 97.9 F Pulse Rate 104 Respiratory 18 Rate Blood Pressure 158/61 (mmHg) O2 Sat by Pulse 92 Oximetry Oxygen Devices in Use Now: Nasal Cannula Appearance: Patient is an 81yo female who appears stated age and is sitting in the bed in [facility]. Eyes: No Scleral Icterus, PERRLA Ears/Nose/Mouth/Throat: NL Teeth, Lips, Gums, Clear Oropharnyx, Mucous Membranes Moist Neck: NL Appearance and Movements; NL JVP, Trachea Midline Respiratory: Symmetrical Chest Expansion and Respiratory Effort, Clear to Auscultation Cardiovascular: NL Sounds; No Murmurs; No JVD, - - 1+ edema in B/L LE. Abdominal: NL Sounds; No Tenderness; No Distention, No Hepatosplenomegaly Lymphatic: No Cervical Adenopathy Extremities: No Edema, No Clubbing, Cyanosis Skin: No Nodules or Sclerosis, - - Ecchymosis on right arm similar to previous exam. Back incision covered with bulky dressing. Neurological: Alert and Oriented x 3, - - CN II-XII intact. Result Diagrams: 07/22/17 05:51 07/22/17 05:51 Additional Lab and Data: . Microbiology and Other Data: . Assess/Plan/Problems-Billing Assessment: Ms. Judge is an 81yo female with a PMH mcrae HTN, COPD and known T12 compression fracture who is admitted with radicular symptoms and is now s/p surgery on Wednesday 07/12 with post-op anemia and ileus which are improving. - Patient Problems (1) Ileus Current Visit: Yes Status: Acute Code(s): K56.7 - ILEUS, UNSPECIFIED SNOMED Code(s): 545004443 Comment: No nausea or vomiting today. Patient encouraged to ambulate and move around. Patient declines NG tube. Patient tolerating small amounts of full liquids. No Vomiting and small stools. (2) Depression Current Visit: Yes Status: Acute Code(s): F32.9 - MAJOR DEPRESSIVE DISORDER , SINGLE EPISODE, UNSPECIFIED SNOMED Code(s): 61637707 Comment: Patient states that she is depressed about the of her and thinks she will not get better. Discussed with patient's family and patient stated that she was willing to try to get better when assured that it was attainable. Patient and family declined psychiatric consult. Discussed patient's hopelessness with family and how she acts much more lively when they are around. Family willing to provide more support and encouragement to patient. Patient consented to elavil treatment this AM for both depression and Neuropathic pain. Patients affect and mood are both improved today. (3) Acute blood loss anemia Current Visit: Yes Status: Acute Code(s): D62 - ACUTE POSTHEMORRHAGIC ANEMIA SNOMED Code(s): 731752842 Comment: Hgb 9.7, monitor. Transfused 3 units this hospitalization. Patient had an estimate of 1,000ml EBL in surgery. Likely contributing to lethargy. Will need iron studies outpatient if persistently anemic. (4) Chest pain Current Visit: Yes Status: Acute Code(s): R07.9 - CHEST PAIN, UNSPECIFIED SNOMED Code(s): 79864482 Comment: Trops peaked at 0.11. No evidence of ischemia on EKG. Echo only showing worsening aortic stenosis, from mild to moderate. Suspect demand ischemia in setting of surgery, pain, fluid overload, and aortic stenosis. Antiplatelets and coagulants not indicated due to recent surgery. Metoprolol and atorvastatin started. CTA chest suboptimal but no evidence of PE. Likely Musculoskeletal in origin. Treated with Lidocaine patch. (5) T12 vertebral fracture Current Visit: Yes Status: Acute Code(s): S22.089A - UNSP FRACTURE OF T11- T12 VERTEBRA, INIT FOR CLOS FX SNOMED Code(s): 178883524 Comment: Management per Dr. Melara, s/p surgery 07/12/17, LOPEZ drains removed. Zepeda replaced for urinary retention again. Pain meds prn. Will decrease amount to help with lethargy. Control only with Flexeril and tylenol. Elavil for Pain control. Continue PT. [facility] at discharge. (6) COPD (chronic obstructive pulmonary disease) Current Visit: Yes Status: Acute Code(s): J44.9 - CHRONIC OBSTRUCTIVE PULMONARY DISEASE, UNSPECIFIED SNOMED Code(s): 20162574 Comment: No evidence of acute exacerbation. Duoneb PRN. Continue Dulera. Wean O2 as tolerated. DOwn to 1L NC (7) Constipation Current Visit: Yes Status: Acute Code(s): K59.00 - CONSTIPATION, UNSPECIFIED SNOMED Code(s): 73856108 Comment: Related to opiate use. Continue Miralax, Colace and MOM. Having multiple bowel movements. (8) HTN (hypertension) Current Visit: Yes Status: Acute Code(s): I10 - ESSENTIAL (PRIMARY) HYPERTENSION SNOMED Code(s): 21112030 Comment: SBP 120s to 150s. Hold lisinopril in setting of acute blood loss anemia. Will resume when clinically indicated. Resume HCTZ, discontinue metoprolol. (9) Heart murmur Current Visit: Yes Status: Acute Code(s): R01.1 - CARDIAC MURMUR, UNSPECIFIED SNOMED Code(s): 30912093 Comment: Patient had echo at [place] 6-9 months ago. Report shows mild aortic stenosis and preserved EF. Has progressed to moderate on recent echo. (10) Acute kidney injury Current Visit: Yes Status: Acute Code(s): N17.9 - ACUTE KIDNEY FAILURE, UNSPECIFIED SNOMED Code(s): 12550725 Comment: Resolved with fluids. (11) Hyponatremia Current Visit: Yes Status: Acute Code(s): E87.1 - HYPO-OSMOLALITY AND HYPONATREMIA SNOMED Code(s): 10299066 Comment: Improving slowly. Resume HCTZ (12) Hyperkalemia Current Visit: Yes Status: Acute Code(s): E87.5 - HYPERKALEMIA SNOMED Code (s): 13606737 Comment: Resolved. Likely due to BASSEM. (13) SOB (shortness of breath) Current Visit: Yes Status: Acute Code(s): R06.02 - SHORTNESS OF BREATH SNOMED Code(s): 563694472 Comment: Acute CHF with pulmonary edema on cxray likely secondary to IVF and moderate aortic stenosis improved with Lasix, No crackles on Exam, wean O2 as tolerated. (14) Full code status Current Visit: Yes Status: Acute Code(s): Z78.9 - OTHER SPECIFIED HEALTH STATUS SNOMED Code(s): 390910852 Comment: (15) Urinary retention Current Visit: Yes Status: Acute Code(s): R33.9 - RETENTION OF URINE, UNSPECIFIED SNOMED Code(s): 670410925 Comment: Unknown cause, Has had to have zepeda placed 3 times this hospitalization. Will get US to evaluate kidneys and bladder. Will send with Zepeda and have removed by urology. (16) Tachycardia Current Visit: Yes Status: Acute Code(s): R00.0 - TACHYCARDIA, UNSPECIFIED SNOMED Code(s): 2541973 Comment: Likely due to dehydration. Improving with fluids. (17) DVT prophylaxis Current Visit: Yes Status: Acute Code(s): NKC1030 - SNOMED Code(s): 068474564 Comment: SCDs only with surgery and acute blood loss anemia. Status and Disposition: Admitted inpatient. Will discharge to [facility] when able.
[2017-07-22] MEDS ORDERED: Magnesium Hydroxide LIQ* 30 ML UDC PO PRN (14:43)
--- NOTE | 2017-07-22 15:40 | RAD ---
INDICATION: Poor urine output, retention. COMPARISON: Comparison is made with a prior CT of the abdomen and pelvis from June 14, 2017. TECHNIQUE: Multiple real-time images of the kidneys were obtained. FINDINGS: The kidneys are normal in size shape and echogenicity. The right kidney measured 11.8 x 4.7 x 4.7 cm and the left kidney measured 10.2 x 4.6 x 5.1 cm. Images of the left kidney is slightly limited. No significant focal abnormality or hydronephrosis is seen. There is a Rich catheter present within the urinary bladder which appears decompressed. IMPRESSION: NO EVIDENCE FOR HYDRONEPHROSIS.
[2017-07-22] MEDS: Mometasone/Formoter 200/5 MDI INH PRN (16:08)
[2017-07-22] MEDS: Calcium Carbonate CHEW TAB* 500 MG (TUMS) PO PRN (16:15)
[2017-07-22] MEDS: Atorvastatin* 40 MG TAB PO SCH (16:15)
[2017-07-22] MEDS: Amitriptyline TAB* 50 MG PO SCH (20:19)
[2017-07-22] MEDS: Lidocaine Patch REMOVE* 1 NOTE MISC SCH (20:21)
[2017-07-23] MEDS: NS 0.9% 1000 ML* 1,000 ML IV SCH (02:41)
[2017-07-23 05:30] LABS: Hematocrit 27 % (35-47); Hemoglobin 9.1 g/dl (12.0-16.0); Mean Corpuscular HGB Conc 33 g/dl (31-36); Mean Corpuscular Hemoglobin 32 pg (27-31); Mean Corpuscular Volume 97 fL (80-97); Mean Platelet Volume 6.6 um3 (7.4-10.4); Platelet Count 310 10^3/ul (150-450); Red Blood Count 2.82 10^6/ul (4.0-5.4); Red Cell Distribution Width 16 % (10.5-15); White Blood Count 8.2 10^3/ul (3.5-10.8)
[2017-07-23 05:41] LABS: EGFR Non-African American 179.2 (>60)
[2017-07-23 06:33] LABS: ABS Basophils 0 10^3/ul (0-0.2); ABS Eosinophils 0 10^3/ul (0-0.6); ABS Lymphocytes 1.2 10^3/ul (1.0-4.8); ABS Monocytes 0.6 10^3/ul (0-0.8); ABS Neutrophils 6.4 10^3/ul (1.5-7.7); ABS Nucleated RBC 0 10^3/ul; Eosinophil % 0.5 % (0-6); Lymphocyte % 14.6 % (25-47); Nucleated Red Blood Cells % 0
[2017-07-23] MEDS: Docusate CAP* 100 MG PO SCH ×2 (09:24→22:04)
[2017-07-23] MEDS: Hydrochlorothiazide TAB* 25 MG PO SCH (09:51)
[2017-07-23] MEDS: Acetaminophen TAB* 325 MG PO PRN ×2 (09:52→22:03)
[2017-07-23] MEDS: Mometasone/Formoter 200/5 MDI INH PRN (09:52)
[2017-07-23] MEDS: Lidocaine PATCH 5%* 1 PATCH TRANSDERM SCH (09:53)
[2017-07-23] MEDS ORDERED: Metoprolol Tartrate TAB* 25 MG PO SCH (13:56)
--- NOTE | 2017-07-23 13:57 | PN ---
Subjective Date of Service: 07/23/17 Interval History: Patient still participative in plan of care. Patient states pain in right chest is improving. Patient denies F/C, N/V, states slightly more SOB today with activity. Patient continues to have bowel movements. Patient able to get up to the chair and is drinking more fluid and is tolerating more PO. Patient denies palpitations, [place], Changes in vision, or other pain. Family History: Findings - F had leukemia, M age 83 [place]. Social History: Findings - Lives alone. Quit smoking 16 yrs ago. SDM is her daughter Daniela Winchester. No alcohol abuse. Past Medical History: Findings - 5 children. Appy, BL cataract surgery, thyroid surgery 50 yrs ago, bunion surgery. COPD, HTN. Objective Active Medications: Acetaminophen (Tylenol Tab*) 650 mg PO Q4H PRN PRN Reason: FEVER/PAIN Last Admin: 07/23/17 09:52 Dose: 650 mg Albuterol/Ipratropium (Duoneb (Albuterol 2.5 Mg/Ipratropium 0.5 Mg)) 1 neb INH Q4H PRN PRN Reason: SOB/WHEEZING Amitriptyline HCl (Elavil Tab*) 50 mg PO BEDTIME [facility] Last Admin: 07/22/17 20:19 Dose: 50 mg Atorvastatin Calcium (Lipitor*) 40 mg PO 1700 [facility] Last Admin: 07/22/17 16:15 Dose: 40 mg Calcium Carbonate (Tums*) 500 mg PO BID PRN PRN Reason: HEARTBURN Last Admin: 07/22/17 16:15 Dose: 500 mg Docusate Sodium (Colace Cap*) 200 mg PO BID [facility] Last Admin: 07/23/17 09:24 Dose: Not Given Hydrochlorothiazide (Hydrodiuril Tab*) 12.5 mg PO DAILY [facility] Last Admin: 07/23/17 09:51 Dose: 12.5 mg Lidocaine (Lidoderm 5% Patch*) 1 patch TRANSDERM DAILY [facility] Last Admin: 07/23/17 09:53 Dose: 1 patch Magnesium Hydroxide (Milk Of Magnesia Liq*) 30 ml PO BID PRN PRN Reason: CONSTIPATION Mometasone Furoate/Formoterol Fumar (Dulera 200/5 Mdi*) 2 puff INH BID PRN; Protocol PRN Reason: SOB/WHEEZING Last Admin: 07/23/17 09:52 Dose: 2 puff Ondansetron HCl (Zofran Odt Tab*) 4 mg SL Q6H PRN PRN Reason: NAUSEA/VOMITING Last Admin: 07/20/17 03:21 Dose: 4 mg Pharmacy Profile Note (Lidocaine Patch Remove*) 1 note N/A [address] [facility] Last Admin: 07/22/17 20:21 Dose: 1 note Polyethylene Glycol/Electrolytes (Miralax*) 17 gm PO DAILY PRN PRN Reason: CONSTIPATION Vital Signs - 8 hr 07/23/17 07/23/17 07/23/17 07:32 07:52 08:00 Temperature 98.3 F Pulse Rate 107 Respiratory 18 20 Rate Blood Pressure 144/62 (mmHg) O2 Sat by Pulse 94 Oximetry 07/23/17 11:34 Temperature 97.4 F Pulse Rate 116 Respiratory 18 Rate Blood Pressure 146/61 (mmHg) O2 Sat by Pulse 92 Oximetry Oxygen Devices in Use Now: Nasal Cannula Appearance: Patient is an 81yo female who appears stated age and is sitting in the bed in [facility]. Eyes: No Scleral Icterus, PERRLA Ears/Nose/Mouth/Throat: NL Teeth, Lips, Gums, Clear Oropharnyx, Mucous Membranes Moist Neck: NL Appearance and Movements; NL JVP, Trachea Midline Respiratory: Symmetrical Chest Expansion and Respiratory Effort, Clear to Auscultation, - - Diminished to a similar degree to previous exam. Cardiovascular: NL Sounds; No Murmurs; No JVD, RRR Abdominal: NL Sounds; No Tenderness; No Distention, No Hepatosplenomegaly Lymphatic: No Cervical Adenopathy Extremities: No Edema, No Clubbing, Cyanosis Skin: No Rash or Ulcers, No Nodules or Sclerosis Neurological: Alert and Oriented x 3, NL Sensation, - - CN II-XII intact. Result Diagrams: 07/23/17 05:05 07/23/17 05:05 Additional Lab and Data: . Microbiology and Other Data: . Assess/Plan/Problems-Billing Assessment: Ms. Judge is an 81yo female with a PMH mcrae HTN, COPD and known T12 compression fracture who is admitted with radicular symptoms and is now s/p surgery on Wednesday 07/12 with post-op anemia and ileus which are improving. - Patient Problems (1) Ileus Current Visit: Yes Status: Acute Code(s): K56.7 - ILEUS, UNSPECIFIED SNOMED Code(s): 550634404 Comment: No nausea or vomiting today. Patient encouraged to ambulate and move around. Patient declines NG tube. Patient tolerating small amounts of full liquids. No Vomiting and small stools. (2) Depression Current Visit: Yes Status: Acute Code(s): F32.9 - MAJOR DEPRESSIVE DISORDER , SINGLE EPISODE, UNSPECIFIED SNOMED Code(s): 45750761 Comment: Patient states that she is depressed about the of her and thinks she will not get better. Discussed with patient's family and patient stated that she was willing to try to get better when assured that it was attainable. Patient and family declined psychiatric consult. Discussed patient's hopelessness with family and how she acts much more lively when they are around. Family willing to provide more support and encouragement to patient. Patient consented to elavil treatment this AM for both depression and Neuropathic pain. Patients affect and mood are both improved today. (3) Acute blood loss anemia Current Visit: Yes Status: Acute Code(s): D62 - ACUTE POSTHEMORRHAGIC ANEMIA SNOMED Code(s): 925346905 Comment: Hgb 9.7, monitor. Transfused 3 units this hospitalization. Patient had an estimate of 1,000ml EBL in surgery. Likely contributing to lethargy. Will need iron studies outpatient if persistently anemic. (4) Chest pain Current Visit: Yes Status: Acute Code(s): R07.9 - CHEST PAIN, UNSPECIFIED SNOMED Code(s): 65210871 Comment: Trops peaked at 0.11. No evidence of ischemia on EKG. Echo only showing worsening aortic stenosis, from mild to moderate. Suspect demand ischemia in setting of surgery, pain, fluid overload, and aortic stenosis. Antiplatelets and coagulants not indicated due to recent surgery. Metoprolol and atorvastatin started. CTA chest suboptimal but no evidence of PE. Likely Musculoskeletal in origin. Treated with Lidocaine patch. (5) T12 vertebral fracture Current Visit: Yes Status: Acute Code(s): S22.089A - UNSP FRACTURE OF T11- T12 VERTEBRA, INIT FOR CLOS FX SNOMED Code(s): 603999853 Comment: Management per Dr. Melara, s/p surgery 4/25/18, LOPEZ drains removed. Zepeda replaced for urinary retention again. Pain meds prn. Will decrease amount to help with lethargy. Control only with Flexeril and tylenol. Elavil for Pain control. Continue PT. [facility] at discharge. (6) COPD (chronic obstructive pulmonary disease) Current Visit: Yes Status: Acute Code(s): J44.9 - CHRONIC OBSTRUCTIVE PULMONARY DISEASE, UNSPECIFIED SNOMED Code(s): 33727215 Comment: No evidence of acute exacerbation. Duoneb PRN. Continue Dulera. Wean O2 as tolerated. DOwn to 1L NC (7) Constipation Current Visit: Yes Status: Acute Code(s): K59.00 - CONSTIPATION, UNSPECIFIED SNOMED Code(s): 38154946 Comment: Related to opiate use. Continue Miralax, Colace and MOM PRN Having multiple bowel movements. (8) HTN (hypertension) Current Visit: Yes Status: Acute Code(s): I10 - ESSENTIAL (PRIMARY) HYPERTENSION SNOMED Code(s): 64184203 Comment: SBP 120s to 150s. Hold lisinopril in setting of acute blood loss anemia. Will resume when clinically indicated. Resume HCTZ, Metoprolol. (9) Heart murmur Current Visit: Yes Status: Acute Code(s): R01.1 - CARDIAC MURMUR, UNSPECIFIED SNOMED Code(s): 69809820 Comment: Patient had echo at [facility] 6-9 months ago. Report shows mild aortic stenosis and preserved EF. Has progressed to moderate on recent echo. (10) Acute kidney injury Current Visit: Yes Status: Acute Code(s): N17.9 - ACUTE KIDNEY FAILURE, UNSPECIFIED SNOMED Code(s): 72329890 Comment: Resolved with fluids. (11) Hyponatremia Current Visit: Yes Status: Acute Code(s): E87.1 - HYPO-OSMOLALITY AND HYPONATREMIA SNOMED Code(s): 52336587 Comment: Improving slowly. Resume HCTZ (12) Hyperkalemia Current Visit: Yes Status: Acute Code(s): E87.5 - HYPERKALEMIA SNOMED Code (s): 23314071 Comment: Resolved. Likely due to BASSEM. (13) SOB (shortness of breath) Current Visit: Yes Status: Acute Code(s): R06.02 - SHORTNESS OF BREATH SNOMED Code(s): 570290923 Comment: Acute CHF with pulmonary edema on cxray likely secondary to IVF and moderate aortic stenosis improved with Lasix, No crackles on Exam, wean O2 as tolerated. (14) Full code status Current Visit: Yes Status: Acute Code(s): Z78.9 - OTHER SPECIFIED HEALTH STATUS SNOMED Code(s): 728291228 Comment: (15) Urinary retention Current Visit: Yes Status: Acute Code(s): R33.9 - RETENTION OF URINE, UNSPECIFIED SNOMED Code(s): 603129273 Comment: Unknown cause, Has had to have zepeda placed 3 times this hospitalization. Will get US to evaluate kidneys and bladder. Will send with Zepeda and have removed by urology. (16) Tachycardia Current Visit: Yes Status: Acute Code(s): R00.0 - TACHYCARDIA, UNSPECIFIED SNOMED Code(s): 3581475 Comment: Likely due to dehydration. Improving with fluids. (17) DVT prophylaxis Current Visit: Yes Status: Acute Code(s): VYN7105 - SNOMED Code(s): 790225624 Comment: SCDs only with surgery and acute blood loss anemia. Status and Disposition: Admitted inpatient. Will discharge to [facility] when able.
[2017-07-23] MEDS: Atorvastatin* 40 MG TAB PO SCH (17:00)
[2017-07-23] MEDS: Amitriptyline TAB* 50 MG PO SCH (22:03)
[2017-07-23] MEDS: Metoprolol Tartrate TAB* 25 MG PO SCH (22:03)
[2017-07-23] MEDS: Lidocaine Patch REMOVE* 1 NOTE MISC SCH (22:04)
[2017-07-24 06:15] LABS: Hematocrit 28 % (35-47); Hemoglobin 9.3 g/dl (12.0-16.0); Mean Corpuscular HGB Conc 33 g/dl (31-36); Mean Corpuscular Hemoglobin 32 pg (27-31); Mean Corpuscular Volume 97 fL (80-97); Mean Platelet Volume 6.9 um3 (7.4-10.4); Platelet Count 340 10^3/ul (150-450); Red Blood Count 2.91 10^6/ul (4.0-5.4); Red Cell Distribution Width 16 % (10.5-15); White Blood Count 11.8 10^3/ul (3.5-10.8)
[2017-07-24 06:46] LABS: ABS Basophils 0 10^3/ul (0-0.2); ABS Eosinophils 0 10^3/ul (0-0.6); ABS Lymphocytes 1.2 10^3/ul (1.0-4.8); ABS Monocytes 0.6 10^3/ul (0-0.8); ABS Nucleated RBC 0 10^3/ul; Eosinophil % 0.1 % (0-6); Lymphocyte % 9.8 % (25-47); Nucleated Red Blood Cells % 0
[2017-07-24] MEDS ORDERED: Magnesium Sulfate 2 GM IV* 2 GM/50 ML BAG IVPB ONE (08:02)
[2017-07-24] MEDS: Acetaminophen TAB* 325 MG PO PRN ×2 (09:33→21:10)
[2017-07-24] MEDS: Metoprolol Tartrate TAB* 25 MG PO SCH ×2 (09:34→21:10)
[2017-07-24] MEDS: Hydrochlorothiazide TAB* 25 MG PO SCH (09:34)
[2017-07-24] MEDS: Potassium Chlor TAB* 20 MEQ TAB.ER PO SCH ×3 (09:34→21:10)
[2017-07-24] MEDS: Lidocaine PATCH 5%* 1 PATCH TRANSDERM SCH (09:39)
[2017-07-24] MEDS: Docusate CAP* 100 MG PO SCH ×2 (09:43→21:10)
[2017-07-24] MEDS: Mometasone/Formoter 200/5 MDI INH PRN (09:48)
[2017-07-24] MEDS: Calcium Carbonate CHEW TAB* 500 MG (TUMS) PO PRN (14:16)
[2017-07-24] MEDS: Atorvastatin* 40 MG TAB PO SCH (17:58)
--- NOTE | 2017-07-24 18:41 | PN ---
Subjective Date of Service: 07/24/17 Interval History: Patient c/o "lot of gas" and abdominal bloating passing lots of flatulence. She reports she vomited twice today but states it was after she ate cottage cheese that "tasted weird". She reports she has been having NL BMs - denies constipation/diarrhea. She reports this feels different from when she had the ileus. No fever/chills. Daughters at the bedside. Family History: Findings - F had leukemia, M age 83 [place]. Social History: Findings - Lives alone. Quit smoking 16 yrs ago. SDM is her daughter Daniela Winchester. No alcohol abuse. Past Medical History: Findings - 5 children. Appy, BL cataract surgery, thyroid surgery 50 yrs ago, bunion surgery. COPD, HTN. Objective Active Medications: Acetaminophen (Tylenol Tab*) 650 mg PO Q4H PRN PRN Reason: FEVER/PAIN Last Admin: 07/23/17 22:03 Dose: 650 mg Albuterol/Ipratropium (Duoneb (Albuterol 2.5 Mg/Ipratropium 0.5 Mg)) 1 neb INH Q4H PRN PRN Reason: SOB/WHEEZING Amitriptyline HCl (Elavil Tab*) 50 mg PO BEDTIME [facility] Last Admin: 07/23/17 22:03 Dose: 50 mg Atorvastatin Calcium (Lipitor*) 40 mg PO 1700 [facility] Last Admin: 07/24/17 17:58 Dose: 40 mg Calcium Carbonate (Tums*) 500 mg PO BID PRN PRN Reason: HEARTBURN Last Admin: 07/24/17 14:16 Dose: 500 mg Docusate Sodium (Colace Cap*) 200 mg PO BID [facility] Last Admin: 07/24/17 09:43 Dose: 200 mg Guaifenesin (Mucinex*) 600 mg PO BID [facility] Hydrochlorothiazide (Hydrodiuril Tab*) 12.5 mg PO DAILY [facility] Last Admin: 07/24/17 09:34 Dose: 12.5 mg Lidocaine (Lidoderm 5% Patch*) 1 patch TRANSDERM DAILY [facility] Last Admin: 07/24/17 09:39 Dose: 1 patch Magnesium Hydroxide (Milk Of Magnesia Liq*) 30 ml PO BID PRN PRN Reason: CONSTIPATION Metoprolol Tartrate (Lopressor Tab*) 25 mg PO BID [facility] Last Admin: 07/24/17 09:34 Dose: 25 mg Mometasone Furoate/Formoterol Fumar (Dulera 200/5 Mdi*) 2 puff INH BID PRN; Protocol PRN Reason: SOB/WHEEZING Last Admin: 07/24/17 09:48 Dose: 2 puff Ondansetron HCl (Zofran Odt Tab*) 4 mg SL Q6H PRN PRN Reason: NAUSEA/VOMITING Last Admin: 07/20/17 03:21 Dose: 4 mg Pharmacy Profile Note (Lidocaine Patch Remove*) 1 note N/A [address] Last Admin: 07/23/17 22:04 Dose: 1 note Polyethylene Glycol/Electrolytes (Miralax*) 17 gm PO DAILY PRN PRN Reason: CONSTIPATION Potassium Chloride (Klor Con Er Tab*) 20 meq PO TID [facility] Stop: 07/24/17 21:01 Last Admin: 07/24/17 13:35 Dose: 20 meq Vital Signs - 8 hr 07/24/17 07/24/17 11:19 15:01 Temperature 98.9 F 97.9 F Pulse Rate 113 107 Respiratory 18 18 Rate Blood Pressure 113/64 158/66 (mmHg) O2 Sat by Pulse 90 91 Oximetry Oxygen Devices in Use Now: Nasal Cannula Appearance: eldelry female layingin bed A+Ox3, mild pain Eyes: No Scleral Icterus, PERRLA Ears/Nose/Mouth/Throat: NL Teeth, Lips, Gums, Mucous Membranes Moist Neck: NL Appearance and Movements; NL JVP Respiratory: Symmetrical Chest Expansion and Respiratory Effort, Clear to Auscultation Cardiovascular: NL Sounds; No Murmurs; No JVD, RRR, - - 1+ LE edema Abdominal: - - mild distention, hyperactive BS, mild tenderness to palpation right mid later quad. soft, non guarding. Skin: No Nodules or Sclerosis Neurological: Alert and Oriented x 3, NL Sensation, NL Muscle Strength and Tone Lines/Tubes/Other Access: Clean, Dry and Intact Peripheral IV Nutrition: Taking PO's Result Diagrams: 07/24/17 05:28 07/24/17 05:28 Additional Lab and Data: . Microbiology and Other Data: . Assess/Plan/Problems-Billing Assessment: Ms. Judge is an 81yo female with a H mcrae HTN, COPD and known T12 compression fracture who is admitted with radicular symptoms and is now s/p surgery on Wednesday 07/12 with post-op anemia and ileus. - Patient Problems (1) T12 vertebral fracture Comment: Management per Dr. Melara, s/p surgery 07/12/17, LOPEZ drains removed. Rich replaced for urinary retention again. Pain meds prn. Will decrease amount to help with lethargy. Control only with Flexeril and tylenol. Continue PT. [facility] at discharge. (2) Ileus Comment: Abdominal distention, and vomited today - per patient this feels different from ileus, it is possible this is gas... plan to obtain abd xray. She is passing flatulence. I also noted she was recently started on amitriptyline which can cause GI upset and possible ileus and plan to DC this at this time. Patient encouraged to ambulate and move around. (3) Acute blood loss anemia Comment: Stable. Transfused 3 units this hospitalization. Patient had an estimate of 1,000ml EBL in surgery. Will need iron studies outpatient if persistently anemic. (4) COPD (chronic obstructive pulmonary disease) Comment: No evidence of acute exacerbation. Duoneb PRN. Continue Dulera. Wean O2 as tolerated. Down to 1L NC (5) Constipation Comment: Resolved Related to opiate use. Continue Miralax, Colace and MOM PRN Having multiple bowel movements. (6) Depression Comment: Patient states that she is depressed about the of her and thinks she will not get better. Discussed with patient's family and patient stated that she was willing to try to get better when assured that it was attainable. Patient and family declined psychiatric consult. Patient started on elavil treatment 07/23 for both depression and Neuropathic pain - however I am going to hold this d/t GI upset & can cause ileus (7) Hyponatremia Comment: stable. HCTZ was resumed 07/22 - continue to monitor (8) DVT prophylaxis Comment: SCDs only with surgery and acute blood loss anemia. (9) Full code status Comment: Status and Disposition: Admitted inpatient. PT following. Plan to DC to [facility] when stable
[2017-07-24] MEDS: guaiFENesin ER TAB 600 MG PO SCH (21:10)
[2017-07-24] MEDS: Lidocaine Patch REMOVE* 1 NOTE MISC SCH (21:24)
[2017-07-24] MEDS: Lactobacillus Acidophilus* 1 TAB PO SCH (21:30)
--- NOTE | 2017-07-24 22:15 | RAD ---
INDICATION: Abdominal distention COMPARISON: Similar exam July 19, 2017 TECHNIQUE: 5 views the abdomen were obtained. FINDINGS: Again seen are multiple dilated loops of air-filled bowel measuring up to 8 cm in diameter. There is no definite free intraperitoneal gas. Postsurgical changes include transpedicular screws and rods the lower thoracic and lumbar spine as well as surgical jorge overlying the midline upper abdomen. IMPRESSION: INNUMERABLE DILATED AIR-FILLED LOOPS OF SMALL AND LARGE BOWEL MEASURING UP TO 8 CM IN DIAMETER NOT SIGNIFICANTLY CHANGED SINCE THE PREVIOUS KUB.
[2017-07-24 22:34] LABS: Urine Appearance Cloudy; Urine Blood 2+ (Negative); Urine Color Yellow; Urine Ketones 1+ (Negative); Urine Protein Negative (Negative); Urine Specific Gravity 1.008 (1.010-1.030); Urine Urobilinogen Negative (Negative)
[2017-07-25 06:10] LABS: Hematocrit 31 % (35-47); Hemoglobin 10.3 g/dl (12.0-16.0); Mean Corpuscular HGB Conc 34 g/dl (31-36); Mean Corpuscular Hemoglobin 33 pg (27-31); Mean Corpuscular Volume 97 fL (80-97); Mean Platelet Volume 6.5 um3 (7.4-10.4); Platelet Count 404 10^3/ul (150-450); Red Blood Count 3.16 10^6/ul (4.0-5.4); Red Cell Distribution Width 17 % (10.5-15); White Blood Count 13.2 10^3/ul (3.5-10.8)
[2017-07-25 06:14] LABS: ABS Basophils 0 10^3/ul (0-0.2); ABS Eosinophils 0 10^3/ul (0-0.6); ABS Neutrophils 10.2 10^3/ul (1.5-7.7)
[2017-07-25 06:28] LABS: EGFR Non-African American 153.6 (>60)
[2017-07-25 07:04] LABS: ABS Nucleated RBC 0 10^3/ul; Eosinophil % 0 % (0-6); Nucleated Red Blood Cells % 0.1
--- NOTE | 2017-07-25 07:37 | PN ---
Subjective Date of Service: 07/25/17 Interval History: Patient reports she continues to have abdominal bloating and "lot of gas", has been having some diarrhea but reports mostly has been on toilet with gas. Reports diffuse abdominal discomfort. No further vomiting. No fever or chills. Denies back pain. Family History: Findings - F had leukemia, M age 83 [place]. Social History: Findings - Lives alone. Quit smoking 16 yrs ago. SDM is her daughter Daniela Winchester. No alcohol abuse. Past Medical History: Findings - 5 children. Appy, BL cataract surgery, thyroid surgery 50 yrs ago, bunion surgery. COPD, HTN. Objective Active Medications: Acetaminophen (Tylenol Tab*) 650 mg PO Q4H PRN PRN Reason: FEVER/PAIN Last Admin: 07/24/17 21:10 Dose: 650 mg Albuterol/Ipratropium (Duoneb (Albuterol 2.5 Mg/Ipratropium 0.5 Mg)) 1 neb INH Q4H PRN PRN Reason: SOB/WHEEZING Atorvastatin Calcium (Lipitor*) 40 mg PO 1700 [facility] Last Admin: 07/24/17 17:58 Dose: 40 mg Calcium Carbonate (Tums*) 500 mg PO BID PRN PRN Reason: HEARTBURN Last Admin: 07/24/17 14:16 Dose: 500 mg Docusate Sodium (Colace Cap*) 200 mg PO BID [facility] Last Admin: 07/24/17 21:10 Dose: 200 mg Guaifenesin (Mucinex*) 600 mg PO BID [facility] Last Admin: 07/24/17 21:10 Dose: 600 mg Hydrochlorothiazide (Hydrodiuril Tab*) 12.5 mg PO DAILY [facility] Last Admin: 07/24/17 09:34 Dose: 12.5 mg Lactobacillus Rhamnosus (Lactobacillus Acidophilus*) 1 tab PO BID [facility] Last Admin: 07/24/17 21:30 Dose: 1 tab Lidocaine (Lidoderm 5% Patch*) 1 patch TRANSDERM DAILY [facility] Last Admin: 07/24/17 09:39 Dose: 1 patch Magnesium Hydroxide (Milk Of Magnesia Liq*) 30 ml PO BID PRN PRN Reason: CONSTIPATION Metoprolol Tartrate (Lopressor Tab*) 25 mg PO BID [facility] Last Admin: 07/24/17 21:10 Dose: 25 mg Mometasone Furoate/Formoterol Fumar (Dulera 200/5 Mdi*) 2 puff INH BID PRN; Protocol PRN Reason: SOB/WHEEZING Last Admin: 07/24/17 09:48 Dose: 2 puff Ondansetron HCl (Zofran Odt Tab*) 4 mg SL Q6H PRN PRN Reason: NAUSEA/VOMITING Last Admin: 07/20/17 03:21 Dose: 4 mg Pharmacy Profile Note (Lidocaine Patch Remove*) 1 note N/A [address] Last Admin: 07/24/17 21:24 Dose: 1 note Polyethylene Glycol/Electrolytes (Miralax*) 17 gm PO DAILY PRN PRN Reason: CONSTIPATION Vital Signs - 8 hr 07/24/17 07/25/17 07/25/17 23:57 03:24 03:50 Temperature 97.9 F 98.4 F Pulse Rate 94 104 95 Respiratory 16 20 16 Rate Blood Pressure 136/58 156/65 (mmHg) O2 Sat by Pulse 96 100 98 Oximetry Oxygen Devices in Use Now: None Appearance: elderly female sitting up in a chair in NAD, A+O x3 Eyes: No Scleral Icterus, PERRLA Ears/Nose/Mouth/Throat: NL Teeth, Lips, Gums, Mucous Membranes Moist Neck: NL Appearance and Movements; NL JVP Respiratory: Symmetrical Chest Expansion and Respiratory Effort, Clear to Auscultation Cardiovascular: NL Sounds; No Murmurs; No JVD, RRR, - - trace LE edema b/l Abdominal: - - distented, soft, mild tenderness, no guarding. Extremities: No Clubbing, Cyanosis Skin: No Rash or Ulcers, No Nodules or Sclerosis Neurological: Alert and Oriented x 3, NL Sensation, NL Muscle Strength and Tone Lines/Tubes/Other Access: Clean, Dry and Intact Peripheral IV Nutrition: Taking PO's Result Diagrams: 07/25/17 05:49 07/25/17 05:49 Additional Lab and Data: . Microbiology and Other Data: . Assess/Plan/Problems-Billing Assessment: Ms. Judge is an 81yo female with a H mcrae HTN, COPD and known T12 compression fracture who is admitted with radicular symptoms and is now s/p surgery on 07/12 with post-op anemia and ileus. - Patient Problems (1) T12 vertebral fracture Comment: Management per Dr. Melara, s/p surgery 07/12/17, LOPEZ drains removed. Rich replaced for urinary retention again. Pain meds prn. was very lethargic thought to be secondary to pain meds, now doing better. Control only with Flexeril and tylenol. Continue PT. [facility] at discharge. (2) Ileus Comment: continues to have gas, bloating and feels uncomfortable - She is passing flatulence. I also noted she was recently started on amitriptyline which can cause GI upset and possible ileus and plan to DC this at this time. Patient encouraged to ambulate and move around. -concerned for reoccuring ileus - plan to obatin CT abdomen with contrast. NPO (3) Acute blood loss anemia Comment: Stable. Transfused 3 units this hospitalization. Patient had an estimate of 1,000ml EBL in surgery. Will need iron studies outpatient if persistently anemic. (4) COPD (chronic obstructive pulmonary disease) Comment: No evidence of acute exacerbation. Duoneb PRN. Continue Dulera. Wean O2 as tolerated. Down to 1L NC (5) Constipation Comment: Resolved Related to opiate use. Continue Miralax, Colace and MOM PRN Having multiple bowel movements. (6) Depression Comment: Patient states that she is depressed about the of her and thinks she will not get better. Discussed with patient's family and patient stated that she was willing to try to get better when assured that it was attainable. Patient and family declined psychiatric consult. Patient started on elavil treatment 07/23 for both depression and Neuropathic pain - however I am going to hold this d/t GI upset & can cause ileus (7) Hyponatremia Comment: stable. HCTZ was resumed 07/22 - continue to monitor (8) DVT prophylaxis Comment: SCDs only with surgery and acute blood loss anemia. (9) Full code status Comment: Status and Disposition: Admitted inpatient. PT following. Plan to DC to [facility] when stable
[2017-07-25] MEDS ORDERED: Iohexol 300* (CONTRAST) 10 ML SDV IV SCH (09:02)
[2017-07-25] MEDS: cefTRIAXone(*) 1 GM in NS 0.9% 50 ML* 50 ML IVPB SCH ×2 (09:32→11:16)
[2017-07-25] MEDS: Lidocaine PATCH 5%* 1 PATCH TRANSDERM SCH (09:32)
[2017-07-25] MEDS: Mometasone/Formoter 200/5 MDI INH PRN (12:24)
[2017-07-25] MEDS: Docusate CAP* 100 MG PO SCH ×2 (15:26→21:20)
[2017-07-25] MEDS: guaiFENesin ER TAB 600 MG PO SCH ×2 (15:33→21:20)
[2017-07-25] MEDS: Metoprolol Tartrate TAB* 25 MG PO SCH ×2 (15:33→21:20)
[2017-07-25] MEDS: Lactobacillus Acidophilus* 1 TAB PO SCH ×2 (15:33→21:20)
[2017-07-25] MEDS: Atorvastatin* 40 MG TAB PO SCH (15:33)
--- NOTE | 2017-07-25 15:43 | RAD ---
CLINICAL HISTORY: Abdominal pain and distention. Relevant surgical history includes appendectomy. COMPARISON: Most recent comparison CT is dated June 14, 2017 TECHNIQUE: Contrast enhanced CT examination of the abdomen and pelvis from the lung bases through the initial tuberosities. The patient received 100 mL Omnipaque 300 intravenously prior to imaging.The patient received oral contrast as well prior to imaging. FINDINGS: VISUALIZED LUNG BASES: There are large bibasilar pleural effusions larger on the right than the left. Lungs exhibit diffuse centrilobular emphysematous changes. ABDOMEN AND PELVIS: Diffusely there is mild subcutaneous infiltration overlying the anterolateral upper thighs and extending along the lower abdominal wall symmetrically. The liver, spleen, pancreas and adrenal glands are grossly normal in appearance. There is top normal distention of the gallbladder measuring 5.4 cm in diameter. At least one hyperattenuating stone is seen in the dependent gallbladder. The kidneys are normal in appearance without focal mass, calcification or signs of hydronephrosis. A Rich catheter is noted in the lumen of the urinary bladder. The oral contrast has progressed as far as the proximal small bowel. There are no pathologically dilated loops of small bowel although some loops are top normal measuring 2.5 cm in diameter. The transverse colon is largely gas-filled and measures 6.1 cm in diameter, a barely dilated value for the colon. There is gas and stool as far as the rectum. Distal colonic diverticula are seen but there is no focal inflammatory changes characteristic of acute diverticulitis. Consistent with the patient's reported surgical history, the appendix is not visualized. There is no gross retroperitoneal or mesenteric lymphadenopathy. There is trace fluid extending along the posterior margin of the splenic flexure and scattered within the peritoneal cavity becoming more confluent in the cul-de-sac. The pelvic viscera is normal in appearance. There is coarse atherosclerotic calcification of the infrarenal abdominal aorta extending into the bilateral iliac arteries. There is coarse eccentric calcified atherosclerosis of the bilateral common femoral arteries. Postsurgical changes of the lower thoracic and lumbar spine includes transpedicular posterior wilman fixation extending from T10 to L2. IMPRESSION: 1. The transverse colon is mostly air-filled and minimally dilated measuring 6 mm in diameter. There is no obstructing lesion or appearance consistent with volvulus. 2. Distal colonic diverticulosis without focal inflammatory change characteristic of diverticulitis. 3. Moderate to large bibasilar pleural effusions, larger on the right than the left. There is trace peritoneal ascites and infiltration of the subcutaneous tissue overlying the thighs and lower abdomen. Please correspond to fluid overload and/or renal insufficiency. 4. Top normal diameter of the gallbladder measuring 5.4 cm in diameter of uncertain clinical significance. The patient is exhibiting biliary colic or abnormal LFTs superior characterization of the gallbladder can be made with right upper quadrant ultrasound. 5. Coarse atherosclerotic calcification of the lower abdominal aorta extending into the bilateral common iliac arteries. These correlate to any signs or symptoms of lower extremity or pelvic arterial deficiency. 6. Additional chronic, degenerative and iatrogenic findings as described in body the report.
[2017-07-25] MEDS: Simethicone TAB* 80 MG TAB.CHEW PO PRN (17:27)
[2017-07-25] MEDS: Lidocaine Patch REMOVE* 1 NOTE MISC SCH (21:21)
[2017-07-25] MEDS: Acetaminophen TAB* 325 MG PO PRN (21:24)
[2017-07-26] MEDS: Simethicone TAB* 80 MG TAB.CHEW PO PRN ×3 (05:27→18:57)
[2017-07-26 05:33] LABS: Hematocrit 27 % (35-47); Hemoglobin 9.3 g/dl (12.0-16.0); Mean Corpuscular HGB Conc 34 g/dl (31-36); Mean Corpuscular Hemoglobin 33 pg (27-31); Mean Corpuscular Volume 96 fL (80-97); Mean Platelet Volume 6.3 um3 (7.4-10.4); Platelet Count 345 10^3/ul (150-450); Red Blood Count 2.84 10^6/ul (4.0-5.4); Red Cell Distribution Width 17 % (10.5-15); White Blood Count 7.4 10^3/ul (3.5-10.8)
[2017-07-26 05:48] LABS: EGFR Non-African American 141.3 (>60)
[2017-07-26 06:14] LABS: Monocytes % 5 % (0-7)
[2017-07-26] MEDS ORDERED: KCL 20 MEQ/100 ML IVPREMIX* 20 MEQ/100 ML BAG IV SCH (07:00)
[2017-07-26] MEDS: cefTRIAXone(*) 1 GM in NS 0.9% 50 ML* 50 ML IVPB SCH ×2 (07:17→07:36)
[2017-07-26] MEDS: Docusate CAP* 100 MG PO SCH ×2 (07:29→21:10)
[2017-07-26] MEDS ORDERED: Potassium Chloride IV* 40 MEQ in NS 0.9% 250 ML* 250 ML IVPB ONE (08:00)
[2017-07-26] MEDS ORDERED: NS 0.9% 250 ML* 250 ML ONE (08:56)
[2017-07-26] MEDS: Lidocaine PATCH 5%* 1 PATCH TRANSDERM SCH (08:57)
[2017-07-26] MEDS: Metoprolol Tartrate TAB* 25 MG PO SCH ×2 (08:59→21:08)
[2017-07-26] MEDS: guaiFENesin ER TAB 600 MG PO SCH ×2 (08:59→21:08)
[2017-07-26] MEDS: Lactobacillus Acidophilus* 1 TAB PO SCH ×2 (08:59→21:08)
--- NOTE | 2017-07-26 09:02 | PN ---
Subjective Date of Service: 07/26/17 Interval History: Patient reports she feels better today with less abdominal distention and bloating. Reports a small BM this am and is passing gas. No nausea or abd pain. Denies fever or chills. Family History: Findings - F had leukemia, M age 83 [place]. Social History: Findings - Lives alone. Quit smoking 16 yrs ago. SDM is her daughter Daniela Winchester. No alcohol abuse. Past Medical History: Findings - 5 children. Appy, BL cataract surgery, thyroid surgery 50 yrs ago, bunion surgery. COPD, HTN. Objective Active Medications: Acetaminophen (Tylenol Tab*) 650 mg PO Q4H PRN PRN Reason: FEVER/PAIN Last Admin: 07/25/17 21:24 Dose: 650 mg Albuterol/Ipratropium (Duoneb (Albuterol 2.5 Mg/Ipratropium 0.5 Mg)) 1 neb INH Q4H PRN PRN Reason: SOB/WHEEZING Atorvastatin Calcium (Lipitor*) 40 mg PO 1700 REPLACED BY [facility] Last Admin: 07/25/17 15:33 Dose: 40 mg Calcium Carbonate (Tums*) 500 mg PO BID PRN PRN Reason: HEARTBURN Last Admin: 07/24/17 14:16 Dose: 500 mg Docusate Sodium (Colace Cap*) 200 mg PO BID REPLACED BY [facility] Last Admin: 07/26/17 07:29 Dose: Not Given Guaifenesin (Mucinex*) 600 mg PO BID REPLACED BY [facility] Last Admin: 07/26/17 08:59 Dose: 600 mg Ceftriaxone Sodium 1 gm/ (Sodium Chloride) 50 mls @ 200 mls/hr IVPB Q24H REPLACED BY [facility] Last Admin: 07/26/17 07:36 Dose: 200 mls/hr Potassium Chloride 40 meq/ (Sodium Chloride) 270 mls @ 67.5 mls/hr IVPB ONCE ONE Stop: 07/26/17 11:59 Last Admin: 07/26/17 08:59 Dose: 67.5 mls/hr Iohexol (Omnipaque 300* (Contrast)) 100 ml IV ONCE REPLACED BY [facility] Stop: 07/27/17 09:01 Last Admin: 07/25/17 13:31 Dose: 100 ml Lactobacillus Rhamnosus (Lactobacillus Acidophilus*) 1 tab PO BID REPLACED BY [facility] Last Admin: 07/26/17 08:59 Dose: 1 tab Lidocaine (Lidoderm 5% Patch*) 1 patch TRANSDERM DAILY REPLACED BY [facility] Last Admin: 07/26/17 08:57 Dose: 1 patch Magnesium Hydroxide (Milk Of Reinier Liq*) 30 ml PO BID PRN PRN Reason: CONSTIPATION Metoprolol Tartrate (Lopressor Tab*) 25 mg PO BID REPLACED BY [facility] Last Admin: 07/26/17 08:59 Dose: 25 mg Mometasone Furoate/Formoterol Fumar (Dulera 200/5 Mdi*) 2 puff INH BID PRN; Protocol PRN Reason: SOB/WHEEZING Last Admin: 07/25/17 12:24 Dose: 2 puff Ondansetron HCl (Zofran Odt Tab*) 4 mg SL Q6H PRN PRN Reason: NAUSEA/VOMITING Last Admin: 07/20/17 03:21 Dose: 4 mg Pharmacy Profile Note (Lidocaine Patch Remove*) 1 note N/A 2100 REPLACED BY [facility] Last Admin: 07/25/17 21:21 Dose: 1 note Polyethylene Glycol/Electrolytes (Miralax*) 17 gm PO DAILY PRN PRN Reason: CONSTIPATION Simethicone (Mylicon Tab*) 80 mg PO Q6H PRN PRN Reason: DYSPEPSIA Last Admin: 07/26/17 05:27 Dose: 80 mg Vital Signs - 8 hr 07/26/17 07/26/17 03:23 03:50 Temperature 97.6 F Pulse Rate 85 94 Respiratory 16 18 Rate Blood Pressure 152/65 (mmHg) O2 Sat by Pulse 99 97 Oximetry Oxygen Devices in Use Now: Nasal Cannula Appearance: elderly female sitting up in a chair A+O x3 in NAD Eyes: No Scleral Icterus, PERRLA Ears/Nose/Mouth/Throat: NL Teeth, Lips, Gums, Mucous Membranes Moist Neck: NL Appearance and Movements; NL JVP Respiratory: Symmetrical Chest Expansion and Respiratory Effort, Clear to Auscultation Cardiovascular: NL Sounds; No Murmurs; No JVD, RRR, - - trace LE edema Abdominal: - - soft, nontender, non distended, hyperactive BS Skin: No Rash or Ulcers, No Nodules or Sclerosis Neurological: Alert and Oriented x 3, NL Sensation, NL Muscle Strength and Tone Lines/Tubes/Other Access: Clean, Dry and Intact Peripheral IV Nutrition: Taking PO's Result Diagrams: 07/26/17 05:22 07/26/17 05:22 Additional Lab and Data: . Microbiology and Other Data: . Assess/Plan/Problems-Billing Assessment: Ms. Judge is an 81yo female with a PMH mcrae HTN, COPD and known T12 compression fracture who is admitted with radicular symptoms and is now s/p surgery on 07/12 with post-op anemia and ileus. - Patient Problems (1) T12 vertebral fracture Comment: Management per Dr. Melara, s/p surgery 07/12/17, LOPEZ drains removed. Pain meds prn. was very lethargic thought to be secondary to pain meds, now doing better. Control only with Flexeril and tylenol. Continue PT. [facility] at discharge. (2) Ileus Comment: - Reoccuring ileus - improving - She is passing flatulence and BM today. She was recently started on amitriptyline which can cause GI upset and possible ileus - DC 07/24. Patient encouraged to ambulate and move around. -CT abdomen with contrast 07/25 showing no ileus or obstruction, showing mostly air-filled and minimal dilatation. -Apprecitae GI consult today.... reviewed imaging, agrees with read. Recommends clears for now. (3) Urinary retention Comment: Unknown cause, Has had to have zepeda placed 3 times this hospitalization. US unremarkable. It appears the last time it was removed she was started on Amitriptyline (this was discontinued) and was diagnosed with UTI. At this point I think keeping the zepeda in place and either trialing her agin after abx are completed or follow up with urology as an outpt. May need urodynamic testing to assess for nerve damage related to spinal pathology. (4) UTI (urinary tract infection) Comment: - urine cx grew Ecoli on 07/24. Continue ceftriaxone. (5) Acute blood loss anemia Comment: Stable. Transfused 3 units this hospitalization. Patient had an estimate of 1,000ml EBL in surgery. Will need iron studies outpatient if persistently anemic. (6) COPD (chronic obstructive pulmonary disease) Comment: No evidence of acute exacerbation. Duoneb PRN. Continue Dulera. Wean O2 as tolerated. Down to 1L NC (7) Constipation Comment: Resolved Related to opiate use. Continue Miralax, Colace and MOM PRN Having multiple bowel movements. (8) Depression Comment: Patient states that she is depressed about the of her and thinks she will not get better. Discussed with patient's family and patient stated that she was willing to try to get better when assured that it was attainable. Patient and family declined psychiatric consult. Patient started on elavil treatment 07/23 for both depression and Neuropathic pain - however I am going to hold this d/t GI upset & can cause ileus & urinary retention (9) Hyponatremia Comment: stable. HCTZ was resumed 07/22 - continue to monitor (10) DVT prophylaxis Comment: HSQ started 07/26 - (11) Full code status Comment: Status and Disposition: Admitted inpatient. PT following. Plan to DC to [facility] when stable
--- NOTE | 2017-07-26 10:53 | PN ---
Progress Note - Progress Note Date of Service: 07/26/17 SOAP: Subjective: [S/p T10-L2 fusion for T12 compression fracture and L4-5 decompression for stenosis. Patient complains of mild abdominal pain but is passing flatulence. Reports mild back pain when she stands up but then is improved after a few seconds. Has been able to ambulate out into the acharya with assistance. Denies lower extremity numbness and pain. Reports feeling less tired and SOB today. Gonzalez removed from incision yesterday.] Objective: [ Vital Signs: Temp Pulse Resp BP Pulse Ox 97.6 F 109 16 122/65 98 07/26/17 07:34 07/26/17 07:34 07/26/17 07:34 07/26/17 07:34 07/26/17 07:34 General: Alert and oriented this morning. Able to have conversation. Mood significantly improved. Neuro: Right everter weakness persistent since pre-op. Incision: [place] removed yesterday. No swelling or infection. ] Assessment: [Stable post-operatively. ] Plan: [1. Discharge to rehab when medically cleared.]
[2017-07-26] MEDS: Calcium Carbonate CHEW TAB* 500 MG (TUMS) PO PRN (14:11)
[2017-07-26] MEDS: Atorvastatin* 40 MG TAB PO SCH (17:32)
[2017-07-26] MEDS: Mometasone/Formoter 200/5 MDI INH PRN (18:58)
--- NOTE | 2017-07-26 20:05 | CONS ---
CC: Daniela Knapp MD GASTROENTEROLOGY CONSULTATION: DATE OF CONSULT: 07/26/17 REFERRING PHYSICIAN: Daniela Knapp MD HISTORY OF PRESENT ILLNESS: Thank you for asking me to see Mrs. Judge. As you know, she is an 81-y ear-old female who was admitted on 07/09/17 with a T12 compression fracture. She did undergo surgery on 07/12/17. The patient did have a postoperative ileus and now I am asked to see the patient for r ecurrent postoperative ileus. The patient was commenced on amitriptyline the day that her ileus recu rred. She was complaining of abdominal pain and distention. She did undergo abdominopelvic CAT scan yesterday, which did reveal a mildly dilated transverse colon of 6 cm. No evidence of any obstructi ve lesions or volvulus. No signs of acute diverticulitis. The patient's amitriptyline has been disc ontinued. The patient reports to me today that her abdomen is feeling much better. She is less diste nded. She did have a large bowel movement this morning after 1-1/2 days without any stooling. PAST MEDICAL HISTORY: Significant for hypertension, COPD, arthritis, status post appendectomy, statu s post thyroidectomy, cataract extraction. MEDICATIONS IN THE HOSPITAL: 1. Tylenol. 2. Albuterol. 3. Lipitor. 4. Ceftriaxone. 5. Colace. 6. Mucinex. 7. Acidophilus. 8. Lidoderm patch. 9. Milk of magnesia. 10. Lopressor. 11. Dulera. 12. Zofran. 13. MiraLax. FAMILY HISTORY: Noncontributory. SOCIAL HISTORY: The patient lives at home with family. There is no tobacco or alcohol abuse. REVIEW OF SYSTEMS: Ten point review of systems is performed and is otherwise negative. PHYSICAL EXAM: Mrs. Judge is a comfortable 81-year-old female. Temperature is 97.6, heart rate of 94, blood pressure 152/65. HEENT: There is no scleral icterus. Heart is regular rate and rhythm. Lungs are clear. Abdomen is soft and there is no significant tenderness. Bowel sounds are present. Skin is warm and dry. LABORATORY DATA: Pertinent laboratory studies include a white blood count of 7.4, hematocrit of 27. The patient did have anemia following her surgery with estimated 1000 cc of blood loss. She has rec eived 3 units of packed red blood cells. Platelet count of 345,000. Sodium of 132, up from 127 yeste rday. BUN of 6, creatinine of 0.3. IMPRESSION: Mrs. Judge has had a recurrence of postoperative ileus. This could be due to the fact that she had spinal surgery, pain medication, electrolyte abnormalities including the sodium of 127 a nd the initiation of amitriptyline, which also resulted in urinary retention. Her abdominal pain and distention is much improved today. She is getting up and about somewhat. She is on a clear liquid diet. She did have a large bowel movement this morning. Her abdomen is soft. RECOMMENDATIONS: I would add simethicone to her medication list. Continue clear liquid diet for tod ay and hopefully advance to full liquids tomorrow. If there is ongoing improvement, consider KUB daisy orrow morning. [id number]/[facility] #: [id number]
[2017-07-26] MEDS: Acetaminophen TAB* 325 MG PO PRN (21:08)
[2017-07-26] MEDS: Lidocaine Patch REMOVE* 1 NOTE MISC SCH (21:10)
[2017-07-26] MEDS: Heparin VIAL(*) 5000 UNITS/ML VIAL (FIVE THOUSAND) SUBCUT SCH (21:11)
[2017-07-27] MEDS: Simethicone TAB* 80 MG TAB.CHEW PO PRN ×2 (03:07→13:36)
[2017-07-27] MEDS: Heparin VIAL(*) 5000 UNITS/ML VIAL (FIVE THOUSAND) SUBCUT SCH ×2 (05:59→13:36)
[2017-07-27] MEDS: Docusate CAP* 100 MG PO SCH (08:37)
[2017-07-27] MEDS: Lactobacillus Acidophilus* 1 TAB PO SCH (08:41)
[2017-07-27] MEDS: cefTRIAXone(*) 1 GM in NS 0.9% 50 ML* 50 ML IVPB SCH (08:41)
[2017-07-27] MEDS: Metoprolol Tartrate TAB* 25 MG PO SCH (08:41)
[2017-07-27] MEDS: guaiFENesin ER TAB 600 MG PO SCH (08:41)
[2017-07-27] MEDS: Mometasone/Formoter 200/5 MDI INH PRN (08:42)
[2017-07-27] MEDS: Lidocaine PATCH 5%* 1 PATCH TRANSDERM SCH (08:42)
--- NOTE | 2017-07-27 15:09 | PN ---
Progress Note - Progress Note Date of Service: 07/27/17 SOAP: Subjective: [S/p T10-L2 fusion for T10 fracture and L4-5 decompression for stenosis, POD# 15. Patient complains of heartburn this morning. She has been eating crackers without GI upset. Denies back pain, headache, lower extremity pain or numbness. Patient has been working with PT and is more motivated to get up out of bed. ] Objective: [Vital Signs: Temp Pulse Resp BP Pulse Ox 97.3 F 98 18 149/61 96 07/27/17 07:27 07/27/17 07:27 07/27/17 08:00 07/27/17 07:27 07/27/17 07:27 General: Alert and oriented, good spirits today. Neuro: Right eversion weakness since pre-op. Extremities: Mild edema, sensation intact, pulses equal.] Assessment: [Stable post-operatively. Minimal back pain with standing. ] Plan: [1. Discharge to [facility] rehab when medically cleared. 2. Follow up in office with Dr. Melara in 3-4 weeks. ]
[2017-07-27 15:18] VITALS: BP 128/54
--- NOTE | 2017-07-27 16:25 | DS ---
CC: Dr. Daniela Knapp* DATE OF ADMISSION: 07/09/2017. DATE OF DISCHARGE: 07/27/2017. ATTENDING PHYSICIAN FOR THIS ADMISSION: Dr. Manuel Mcguire. MY ATTENDING PHYSICIAN FOR TODAY: Dr. Nayeli Mayfield* (dictated by Ariana Ngo, DILIP). PRIMARY CARE PHYSICIAN: Dr. Daniela Knapp. HOSPITAL COURSE: This is an 81-year-old female patient who was brought to the emergency department by family for complaint of back pain. The patient had had a CT of the lumbar spine back in 06/14/2017 which showed a T12 compression fracture with a mild retropulsion; however, when she came in and had repeat imaging on the secondary to intractable pain, shows the T12 compression fracture now with full retropulsion which was worse compared to previous study. She also had some severe low back pain, weakness of the right foot, and further intractable pain. The patient was seen by Neurosurgery. Initial plan was to put her in an off- loading brace and have an MRI completed. MRI was completed on July 10. It showed the compression fracture of T12 with the retropulsion of the posterior cortex resulting in moderate narrowing of the central canal. It showed some multilevel neuroforaminal narrowing and also moderate narrowing of the central canal at L4-5 with mild narrowing at L3-4, and diffuse degenerative disk disease and osteoarthritis. The patient underwent surgical intervention on the 12 of July. She had a complex postoperative course. She had an estimated blood loss of 1,000 ml requiring several transfusions. The patient also had some postoperative delirium. 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 The patient did not have a pulmonary embolus noted on that study. She also had a transthoracic echocardiogram on the as well. Transthoracic echo showed changes from 2016. She had some moderate aortic stenosis with some new pulmonary hypertension and an increase in tricuspid regurg. She has trace tricuspid regurg two years prior and now increased in severity. Ejection fraction at that time was greater than 65 percent with some moderate concentric left ventricular hypertrophy. The patient also had serial abdominal x-rays for what appeared to be a postoperative ileus. The patient had many issues with tolerating any p.o.'s. She was having persistent nausea and vomiting. This continued every time they tried to advance her diet. Ultimately, her surgery progressed and her healing went well; however, she still had persistent issues with a postoperative ileus and also some urinary tract infection. She underwent a renal ultrasound on the 22 of July. She had failed multiple attempts to remove her Rich catheter and continued to retain urine; however, there was no evidence for hydronephrosis. They continued to try clamping the Rich catheter and bladder training which continued through today. Ultimately her diet was advanced yesterday and then she kind of decompensated with diet and vomited once again last night. However, today she progressed very well from clears to soft diet. She has had no nausea and no vomiting and no complaints today. PHYSICAL EXAMINATION: General: She is awake and alert, well-appearing, in no distress. Vital signs: Blood pressure 149/61, heart rate 96, respiratory rate 16, satting at 96 percent on room air with a temperature of 97.3. HEENT: The patient is atraumatic, normocephalic. PERRLA. Nonicteric sclerae. Extraocular movements are intact. Neck: Supple, nontender. No JVD noted. No carotid bruit auscultated. Cardiovascular: S1, S2 are present. Murmur is noted , systolic murmur is noted grade 2. Lungs: Clear bilaterally to auscultation with no wheezing, rhonchi, or rales. Abdomen: Soft, nontender, nondistended. Hypoactive bowel sounds noted. She is passing flatus and tolerating meals. : She has a Rich catheter draining clear, yellow urine which is set to be removed at 3:00 p.m. today. Musculoskeletal: There is no clubbing, no cyanosis , and no edema. She has a steady gait. +2 distal pulses palpable. Neurologic : She is grossly intact with no focal deficits. Psychiatric: She is cooperative and appropriate. LABORATORY DATA: WBC 7.4, RBC 2.84, hemoglobin 9.3, hematocrit 27, platelets 345; sodium 132, potassium 3.6, chloride 89, CO2 28, BUN 7, creatinine 0.4, calcium 7.8, glucose 114, liver function is within normal limits. Urinalysis shows 1+ ketones, 2+ blood, positive nitrates, 2+ leukocyte esterase, 3+ WBC, 2 + RBC, squamous epithelial cells present and 2+ bacteria. Urine culture reveals E. coli. She was started on Ceftriaxone. DISCHARGE DIAGNOSES: 1. T12 compression fracture with retropulsion. 2. Urinary tract infection. 3. Postoperative recurrent ileus. 4. Urinary retention. 5. Acute blood loss anemia, status post three units packed RBC. 6. History of COPD. 7. History of depression. 8. Acute on chronic hyponatremia. DISCHARGE MEDICATIONS: 1. Tylenol 650 mg q.4 hours as needed. 2. DuoNeb one neb q.4 hours as needed. 3. Lipitor 40 mg in the evening. 4. Calcium carbonate 500 mg two times a day as needed. 5. Docusate 200 mg two times a day. 6. Guaifenesin 600 mg two times a day. 7. Probiotic one tablet two times a day. 8. Lidoderm patch one patch daily. 9. Metoprolol Tartrate 25 mg two times a day. 10. Dulera 200/5 two puffs two times a day. 11. MiraLax 17 gm daily as needed. 12. Simethicone 80 mg q.6 hours as needed. DISCHARGE PLAN: The patient has been accepted at [facility]. She will be transferred this afternoon after her Rich catheter has been removed. [facility] is aware of her issues with urinary retention and they are agreeing to monitor the situation and replace the Rich if needed. The patient and her family are aware of the plan of care and in agreement. ARIANA NGO NP [id number]/[facility] #: [id number] TOYIN
== END 2017-07-27 18:00 | DRG 457 ==
LOC: ED 11:22 → SSU 14:23
PROVIDERS: ADMIT Internal Medicine; ATTEND Internal Medicine
PROC: 0RGA0K1 Fusion of Thoracolumbar Vertebral Joint with Nonautologous Tissue Substitute, Posterior Approach, Posterior Column, Open Approach (ICD-10-PCS; 2017-07-12)
PROC: 30233N1 Transfusion of Nonautologous Red Blood Cells into Peripheral Vein, Percutaneous Approach (ICD-10-PCS; principal; 2017-07-18)
PROC: 0SG00K1 Fusion of Lumbar Vertebral Joint with Nonautologous Tissue Substitute, Posterior Approach, Posterior Column, Open Approach (ICD-10-PCS; 2017-07-18)
PROC: 0RG60K1 Fusion of Thoracic Vertebral Joint with Nonautologous Tissue Substitute, Posterior Approach, Posterior Column, Open Approach (ICD-10-PCS; 2017-07-18)
DX: M48.54XA Collapsed vertebra, not elsewhere classified, thoracic region, initial encounter for fracture (principal); K56.7 Ileus, unspecified; K59.39 Other megacolon; F05 Delirium due to known physiological condition; J90 Pleural effusion, not elsewhere classified; N39.0 Urinary tract infection, site not specified; D62 Acute posthemorrhagic anemia; E87.1 Hypo-osmolality and hyponatremia; N17.9 Acute kidney failure, unspecified; M48.061 Spinal stenosis, lumbar region without neurogenic claudication; J43.9 Emphysema, unspecified; Z88.1 Allergy status to other antibiotic agents; Z98.42 Cataract extraction status, left eye; Z98.41 Cataract extraction status, right eye; Z96.1 Presence of intraocular lens; Z80.3 Family history of malignant neoplasm of breast; Z87.891 Personal history of nicotine dependence; Z90.89 Acquired absence of other organs; K59.00 Constipation, unspecified; M51.36 Other intervertebral disc degeneration, lumbar region; J98.6 Disorders of diaphragm; I27.20 Pulmonary hypertension, unspecified; R33.9 Retention of urine, unspecified; F32.9 Major depressive disorder, single episode, unspecified; E66.9 Obesity, unspecified; I08.3 Combined rheumatic disorders of mitral, aortic and tricuspid valves; R07.9 Chest pain, unspecified; R00.0 Tachycardia, unspecified; E87.5 Hyperkalemia; Z68.28 Body mass index [BMI] 28.0-28.9, adult; M19.042 Primary osteoarthritis, left hand; M19.041 Primary osteoarthritis, right hand; Z80.6 Family history of leukemia; Z82.49 Family history of ischemic heart disease and other diseases of the circulatory system; Z90.49 Acquired absence of other specified parts of digestive tract; T50.2X5A Adverse effect of carbonic-anhydrase inhibitors, benzothiadiazides and other diuretics, initial encounter; T40.2X5A Adverse effect of other opioids, initial encounter; T50.3X5A Adverse effect of electrolytic, caloric and water-balance agents, initial encounter; I11.0 Hypertensive heart disease with heart failure
CPT/HCPCS: 36415; 71045; 71275; 72100; 72131; 72148; 74018; 74019; 74177; 76001; 76775; 80048; 80053; 81003; 81015; 82306; 82570; 83735; 84134; 84300; 84484; 85014; 85018; 85025; 85027; 85610; 86140; 86850; 86900; 86901; 86922; 87077; 87086; 87186; 93005; 93306; 94760; 99285; A9270-GY; C1713; C1776; G8978-GP-CK; G8978-GP-CL; G8979-GP-CI; G8987-GO-CL; G8988-GO-CI; J0330; J0690; J0696; J1100; J1644; J1885; J1940; J2001; J2060; J2250; J2270; J2405; J2704; J2710; J3010; J3475; J3480; P9040; Q9967

== ENCOUNTER 2019-07-25 15:18 | Inpatient (IN) ==
[2019-07-25] MEDS ORDERED: Morphine 4 MG/ML VIAL (1 ml) IV ONE (15:58)
[2019-07-25 17:07] LABS: ABS Basophils 0.1 10^3/ul (0-0.2); ABS Lymphocytes 0.9 10^3/ul (1.0-4.8); ABS Monocytes 0.6 10^3/ul (0-0.8); Eosinophil % 0.4 %; Hematocrit 28 % (35-47); Hemoglobin 9.5 g/dL (12.0-16.0); Lymphocyte % 7.2 %; Mean Corpuscular HGB Conc 34 g/dL (31-36); Mean Corpuscular Hemoglobin 35 pg (27-31); Mean Corpuscular Volume 101 fL (80-97); Mean Platelet Volume 6.9 fL (7.4-10.4); Nucleated Red Blood Cells % 0.1; Platelet Count 432 10^3/uL (150-450); Red Blood Count 2.73 10^6 /uL (3.70-4.87); Red Cell Distribution Width 21 % (10-15)
[2019-07-25 17:24] LABS: Albumin 3.9 g/dL (3.2-5.2); Albumin/Globulin Ratio 1.6 (1-3); BUN/Creatinine Ratio 38.8 (8-20); C Reactive Protein 3.04 mg/L (<8.01); EGFR Non-African American 84.3 (>60); Globulin 2.5 g/dL (2-4); Potassium 4.1 mmol/L (3.5-5.0); Total Bilirubin 0.5 mg/dL (0.2-1.0); Total Protein 6.4 g/dL (6.4-8.9)
[2019-07-25] MEDS ORDERED: Lidocaine PATCH 5% PATCH TRANSDERM ONE (19:43)
[2019-07-25] MEDS ORDERED: HYDROcodone/ACETAMIN 5/325 mg TAB PO ONE (19:44)
[2019-07-25] MEDS ORDERED: oxyCODONE/Acetamin 5/325 mg TAB PO ONE (19:48)
[2019-07-25 20:26] LABS: Uric Acid 7.2 mg/dL (2.3-6.6)
[2019-07-26] MEDS: oxyCODONE/Acetamin 5/325 mg TAB PO PRN ×3 (01:58→16:22)
[2019-07-26] MEDS: Enoxaparin 40 MG/0.4 ML SYR(*) SUBCUT SCH (05:40)
[2019-07-26] MEDS ORDERED: Lidocaine Patch REMOVE PATCH PATCH OFF ONE (08:00)
[2019-07-26] MEDS: Mometasone/Formoter 200/5 MDI INH SCH ×2 (08:46→19:17)
[2019-07-26] MEDS: Lidocaine PATCH 5% PATCH TRANSDERM SCH (08:47)
[2019-07-26] MEDS ORDERED: CMCS: Diclofenac 1% GEL (NF) 100 GM TUBE TOPICAL SCH (09:00)
[2019-07-26] MEDS: Analgesic BALM 114 GM TOPICAL SCH ×2 (14:43→20:37)
[2019-07-26] MEDS: Lidocaine Patch REMOVE PATCH PATCH OFF SCH (20:38)
[2019-07-27 05:47] LABS: Corrected Retic Count 1.4 % (0.5-1.5); Hematocrit for Retic CNT 26 % (35-47); Immature Retic Fraction 0.45; RBC Retic Count 2.53 10^6/uL (3.70-4.87)
[2019-07-27] MEDS: Enoxaparin 40 MG/0.4 ML SYR(*) SUBCUT SCH (06:05)
[2019-07-27 06:11] LABS: % Iron Saturation 45 % (15-55); Iron 133 ug/dL (50-212); Total Iron Binding Capacity 298 mcg/dL (250-450); Transferrin 213 mg/dL (203-362)
[2019-07-27 06:32] LABS: Ferritin 56.4 ng/mL (11-307)
[2019-07-27 06:36] LABS: Folate > 20.00 ng/mL (>3.99)
[2019-07-27] MEDS: Analgesic BALM 114 GM TOPICAL SCH ×3 (08:38→20:07)
[2019-07-27] MEDS: Lidocaine PATCH 5% PATCH TRANSDERM SCH (08:46)
[2019-07-27] MEDS: Mometasone/Formoter 200/5 MDI INH SCH ×2 (08:47→19:29)
[2019-07-27] MEDS: Polyethylene Glycol 3350 17 GM PACKET PO SCH (09:53)
[2019-07-27 11:46] LABS: Rheumatoid Factor < 10 IU/mL (<15)
[2019-07-27 11:58] LABS: T4, Total 7.64 mcg/dL (6.09-12.23)
[2019-07-27 12:02] LABS: TSH (Thyroid Stimulating Horm) 2.09 mcIU/mL (0.34-5.60)
[2019-07-27] MEDS: Lidocaine Patch REMOVE PATCH PATCH OFF SCH (20:13)
[2019-07-28] MEDS: Enoxaparin 40 MG/0.4 ML SYR(*) SUBCUT SCH (05:46)
[2019-07-28] MEDS: Analgesic BALM 114 GM TOPICAL SCH ×3 (09:10→20:14)
[2019-07-28] MEDS: Lidocaine PATCH 5% PATCH TRANSDERM SCH (09:11)
[2019-07-28] MEDS: Mometasone/Formoter 200/5 MDI INH SCH ×2 (09:12→19:36)
[2019-07-28] MEDS: Polyethylene Glycol 3350 17 GM PACKET PO SCH (09:12)
[2019-07-28] MEDS ORDERED: Magnesium CITRATE LIQ 300 ML BTL PO STA (10:29)
[2019-07-28] MEDS: Albuterol HFA INHALER 8 gm MDI INH PRN (16:11)
[2019-07-28] MEDS: Lidocaine Patch REMOVE PATCH PATCH OFF SCH (20:18)
[2019-07-29] MEDS: Enoxaparin 40 MG/0.4 ML SYR(*) SUBCUT SCH (05:41)
[2019-07-29] MEDS: Analgesic BALM 114 GM TOPICAL SCH ×3 (09:04→21:15)
[2019-07-29] MEDS: Mometasone/Formoter 200/5 MDI INH SCH ×2 (09:04→19:33)
[2019-07-29] MEDS: Lidocaine PATCH 5% PATCH TRANSDERM SCH (09:07)
[2019-07-29] MEDS: Polyethylene Glycol 3350 17 GM PACKET PO SCH (09:10)
[2019-07-29 20:22] LABS: Immunoglobulin A 91 mg/dL (61 - 356); Immunoglobulin G 703 mg/dL (767 - 1590); Immunoglobulin M 46 mg/dL (37 - 286)
[2019-07-29] MEDS: Pregabalin 50 mg CAP (*) PO SCH (21:15)
[2019-07-29] MEDS: Lidocaine Patch REMOVE PATCH PATCH OFF SCH (21:15)
[2019-07-29 21:30] LABS: Kappa Free Light Chain 1.79 mg/dL; Lambda Free Light Chain 1.1 mg/dL
[2019-07-29 23:35] LABS: Albumin 2.9 g/dL (3.4-4.7); Albumin/Globulin Ratio 1.13; Gamma Globulin 0.7 g/dL (0.6-1.6); Total Protein(PEP) 5.5 g/dL (6.3 - 7.9)
[2019-07-30 05:43] LABS: ABS Basophils 0.1 10^3/ul (0-0.2); ABS Eosinophils 0.2 10^3/ul (0-0.6); ABS Lymphocytes 1.4 10^3/ul (1.0-4.8); ABS Monocytes 0.5 10^3/ul (0-0.8); Eosinophil % 4.2 %; Hematocrit 25 % (35-47); Hemoglobin 8.5 g/dL (12.0-16.0); Lymphocyte % 25.4 %; Mean Corpuscular HGB Conc 35 g/dL (31-36); Mean Corpuscular Hemoglobin 35 pg (27-31); Mean Corpuscular Volume 102 fL (80-97); Mean Platelet Volume 6.8 fL (7.4-10.4); Nucleated Red Blood Cells % 0.1; Platelet Count 300 10^3/uL (150-450); Red Blood Count 2.39 10^6 /uL (3.70-4.87); Red Cell Distribution Width 20 % (10-15); White Blood Count 5.6 10^3/uL (3.5-10.8)
[2019-07-30] MEDS: Enoxaparin 40 MG/0.4 ML SYR(*) SUBCUT SCH (05:50)
[2019-07-30 06:01] LABS: BUN/Creatinine Ratio 44.8 (8-20); Calcium 8.4 mg/dL (8.6-10.3); EGFR Non-African American 84.3 (>60); Potassium 5.1 mmol/L (3.5-5.0)
[2019-07-30] MEDS: Albuterol HFA INHALER 8 gm MDI INH PRN ×2 (08:39→14:59)
[2019-07-30] MEDS: Pregabalin 50 mg CAP (*) PO SCH ×3 (08:41→21:39)
[2019-07-30] MEDS: Mometasone/Formoter 200/5 MDI INH SCH ×2 (08:42→19:29)
[2019-07-30] MEDS: Analgesic BALM 114 GM TOPICAL SCH ×3 (08:42→21:40)
[2019-07-30] MEDS: Lidocaine PATCH 5% PATCH TRANSDERM SCH (08:45)
[2019-07-30] MEDS: Polyethylene Glycol 3350 17 GM PACKET PO SCH (08:49)
[2019-07-30] MEDS ORDERED: NS 0.9% 1000 ml BAG 1,000 ML IV ONE (09:11)
[2019-07-30 19:40] LABS: Urine Appearance Clear; Urine Bilirubin Negative (Negative); Urine Blood 1+ (Negative); Urine Color Yellow; Urine Glucose Negative (Negative); Urine Ketones Negative (Negative); Urine Nitrite Negative (Negative); Urine Protein Negative (Negative); Urine Specific Gravity 1.012 (1.010-1.030); Urine Urobilinogen Negative (Negative)
[2019-07-30 19:43] LABS: Urine Bacteria Absent (Absent); Urine Red Blood Cell Trace(0-2/hpf) (Absent); Urine Squamous Epithelial Cell Present (Absent); Urine White Blood Cell Absent (Absent)
[2019-07-30] MEDS: Lidocaine Patch REMOVE PATCH PATCH OFF SCH (21:40)
[2019-07-31] MEDS: Enoxaparin 40 MG/0.4 ML SYR(*) SUBCUT SCH (05:59)
[2019-07-31] MEDS: Mometasone/Formoter 200/5 MDI INH SCH (07:37)
[2019-07-31] MEDS: Analgesic BALM 114 GM TOPICAL SCH ×2 (08:52→14:34)
[2019-07-31] MEDS: Lidocaine PATCH 5% PATCH TRANSDERM SCH (08:53)
[2019-07-31] MEDS: Polyethylene Glycol 3350 17 GM PACKET PO SCH (08:53)
[2019-07-31] MEDS: Pregabalin 50 mg CAP (*) PO SCH ×2 (08:53→14:35)
[2019-07-31 11:24] VITALS: BP 121/50
[2019-07-31 22:27] LABS: Albumin 34 %; Albumin/Globulin Ratio 0.52 %; Gamma Globulin 17 %; Total Protein(PEP) Urine 8 mg/dL
== END 2019-07-31 17:10 | DRG 544 ==
LOC: SSU 15:18 → ED 15:18 → OBSVTOIN 07-26 02:00 → INTOOBSV 07-26 02:00 → SSU 07-26 02:22
PROVIDERS: ADMIT Internal Medicine; ATTEND Internal Medicine

== ENCOUNTER 2019-11-05 12:49 | Inpatient (IN) ==
[2019-11-05 13:16] LABS: Hematocrit 28 % (35-47); Hemoglobin 8.6 g/dL (12.0-16.0); Mean Corpuscular HGB Conc 31 g/dL (31-36); Mean Corpuscular Hemoglobin 32 pg (27-31); Mean Corpuscular Volume 102 fL (80-97); Mean Platelet Volume 7.3 fL (7.4-10.4); Platelet Count 639 10^3/uL (150-450); Red Blood Count 2.69 10^6 /uL (3.70-4.87); Red Cell Distribution Width 19 % (10-15); White Blood Count 25.1 10^3/uL (3.5-10.8)
[2019-11-05] MEDS ORDERED: NS 0.9% 1000 ml BAG 1,000 ML IV ONE ×3 (13:22→13:52)
[2019-11-05 13:31] LABS: INR 0.9 (0.82-1.09)
[2019-11-05 13:43] LABS: ALT 21 U/L (7-52); Albumin 4.4 g/dL (3.2-5.2); Albumin/Globulin Ratio 1.6 (1-3); Alkaline Phosphatase 74 U/L (34-104); BUN/Creatinine Ratio 38.9 (8-20); Blood Urea Nitrogen 44 mg/dL (6-24); C Reactive Protein 2.88 mg/L (<8.01); CO2 Carbon Dioxide 15 mmol/L (22-32); Calcium 9.7 mg/dL (8.6-10.3); Chloride 97 mmol/L (101-111); EGFR African American 55.8 (>60); EGFR Non-African American 46.1 (>60); Globulin 2.7 g/dL (2-4); Glucose 153 mg/dL (70-100); Lipase 148 U/L (11.0-82.0); Sodium 130 mmol/L (135-145); Total Protein 7.1 g/dL (6.4-8.9)
[2019-11-05] MEDS ORDERED: Iodixanol (CONTRAST) 320 MG/ML 100 ML SDV IV ONE (13:45)
[2019-11-05 13:46] LABS: Anion Gap 18 mmol/L (2-11)
[2019-11-05] MEDS ORDERED: Piperacillin/Tazobac ADVAN 3.375 GM in NS 0.9% 100 ml BAG 100 ML IVPB ONE ×2 (13:53→18:43)
[2019-11-05 14:01] LABS: Polychromasia 2+
[2019-11-05 14:02] LABS: Acanthocytes 1+
[2019-11-05 14:03] LABS: ABS Basophils 0.2 10^3/ul (0-0.2); ABS Lymphocytes 2.3 10^3/ul (1.0-4.8); ABS Monocytes 1.8 10^3/ul (0-0.8); ABS Neutrophils 20.7 10^3/ul (1.5-7.7); ABS Nucleated RBC 0.4 10^3/ul; Eosinophil % 0.1 %; Lymphocyte % 9.3 %; Nucleated Red Blood Cells % 1.6
[2019-11-05 15:44] LABS: Hematocrit 14 % (35-47); Hemoglobin 4.6 g/dL (12.0-16.0); Mean Corpuscular HGB Conc 32 g/dL (31-36); Mean Corpuscular Hemoglobin 33 pg (27-31); Mean Corpuscular Volume 103 fL (80-97); Mean Platelet Volume 6.6 fL (7.4-10.4); Platelet Count 295 10^3/uL (150-450); Red Blood Count 1.41 10^6 /uL (3.70-4.87); Red Cell Distribution Width 19 % (10-15); White Blood Count 20.5 10^3/uL (3.5-10.8)
[2019-11-05 16:37] LABS: Microcytosis 3+; Polychromasia 2+
[2019-11-05 16:38] LABS: ABS Basophils 0.1 10^3/ul (0-0.2); ABS Lymphocytes 0.6 10^3/ul (1.0-4.8); ABS Monocytes 0.7 10^3/ul (0-0.8); ABS Neutrophils 19.2 10^3/ul (1.5-7.7); ABS Nucleated RBC 0.2 10^3/ul; Lymphocyte % 2.7 %; Nucleated Red Blood Cells % 0.8
[2019-11-05] MEDS ORDERED: KCL 20 MEQ/100 ML IVPREMIX 20 MEQ/100 ML BAG IV ONE (17:20)
[2019-11-05] MEDS ORDERED: Albuterol HFA INHALER 8 gm MDI INH PRN (18:12)
[2019-11-05] MEDS: Lactated Ringers 1000 ml BAG 1,000 ML IV SCH (18:34)
[2019-11-05 18:45] LABS: Phosphorus 6.7 mg/dL (2.5-5.0)
[2019-11-05] MEDS ORDERED: Pantoprazole VIAL 40 MG VIAL IV SCH (19:00)
[2019-11-05] MEDS ORDERED: Zosyn per Pharmacy NOTE FOLLOW UP SCH (19:00)
[2019-11-05 19:19] LABS: Urine Appearance Cloudy; Urine Bilirubin Negative (Negative); Urine Blood 1+ (Negative); Urine Color Amber; Urine Glucose Negative (Negative); Urine Ketones Negative (Negative); Urine Nitrite Positive (Negative); Urine Protein 2+(100 mg/dL) (Negative); Urine Specific Gravity 1.023 (1.010-1.030); Urine Urobilinogen Negative (Negative)
[2019-11-05 19:41] LABS: Urine Bacteria 1+ (Absent); Urine Red Blood Cell 1+(3-5/hpf) (Absent); Urine Squamous Epithelial Cell Present (Absent); Urine White Blood Cell 3+(>20/hpf) (Absent)
[2019-11-05] MEDS ORDERED: Phenylephrine IV 10 MG/ML 1 ml VIAL ONE (20:58)
[2019-11-05] MEDS ORDERED: Heparin 5000 UNITS/ML 1 mL VIAL SUBCUT SCH (21:00)
[2019-11-05] MEDS: Phenylephrine IV 50 MG in NS 0.9% 250 ml 245 ML IV SCH (21:08)
[2019-11-05] MEDS: ZOSYN 3.375 GM Q8H per EXTENDED INFUSION IV SCH (21:09)
[2019-11-05 21:14] LABS: Magnesium 1.3 mg/dL (1.9-2.7)
[2019-11-05] MEDS ORDERED: Magnesium Sulfate 2 gm BAG 2 GM/50 ML BAG IVPB ONE (21:38)
[2019-11-05] MEDS ORDERED: Norepinephrine 16MCG/ML IVPRE 4,000 MCG/250 ML BAG IV ONE (21:38)
[2019-11-05] MEDS: Mometasone/Formoter 200/5 MDI INH SCH (21:55)
[2019-11-05] MEDS: Norepinephrine 16MCG/ML IVPRE 4,000 MCG/250 ML BAG IV SCH (22:04)
[2019-11-05] MEDS: Pantoprazole 80 mg in NS BAG 80 MG/250 ML BAG IV SCH (22:15)
[2019-11-05 23:31] LABS: Hematocrit 29 % (35-47); Hemoglobin 9.4 g/dL (12.0-16.0); Mean Corpuscular HGB Conc 33 g/dL (31-36); Mean Corpuscular Hemoglobin 31 pg (27-31); Mean Corpuscular Volume 95 fL (80-97); Mean Platelet Volume 6.9 fL (7.4-10.4); Platelet Count 423 10^3/uL (150-450); Red Blood Count 3.04 10^6 /uL (3.70-4.87); Red Cell Distribution Width 19 % (10-15); White Blood Count 30.6 10^3/uL (3.5-10.8)
[2019-11-05 23:48] LABS: Albumin 3.4 g/dL (3.2-5.2); Albumin/Globulin Ratio 1.7 (1-3); BUN/Creatinine Ratio 40.2 (8-20); EGFR African American 59.4 (>60); EGFR Non-African American 49.1 (>60); Magnesium 2.7 mg/dL (1.9-2.7); Phosphorus 4.8 mg/dL (2.5-5.0); Total Bilirubin 0.8 mg/dL (0.2-1.0); Total Protein 5.4 g/dL (6.4-8.9)
[2019-11-05] MEDS ORDERED: Acetaminophen IV 1 GM/100ML 100 ML IVPB PRN (23:48)
[2019-11-05 23:50] LABS: Potassium 5.3 mmol/L (3.5-5.0)
[2019-11-06] MEDS ORDERED: Acetaminophen IV 1 GM/100ML 100 ML IVPB PRN (00:36)
[2019-11-06] MEDS: Phenylephrine IV 50 MG in NS 0.9% 250 ml 245 ML IV SCH ×2 (01:14→06:49)
[2019-11-06 01:28] LABS: ABS Basophils 0.1 10^3/ul (0-0.2); ABS Lymphocytes 0.4 10^3/ul (1.0-4.8); ABS Monocytes 1.1 10^3/ul (0-0.8); ABS Nucleated RBC 0.1 10^3/ul; Lymphocyte % 1.2 %; Nucleated Red Blood Cells % 0.3
[2019-11-06] MEDS: Lactated Ringers 1000 ml BAG 1,000 ML IV SCH (02:48)
[2019-11-06] MEDS: ZOSYN 3.375 GM Q8H per EXTENDED INFUSION IV SCH ×3 (03:11→20:16)
[2019-11-06] MEDS: Norepinephrine 16MCG/ML IVPRE 4,000 MCG/250 ML BAG IV SCH ×7 (04:06→23:11)
[2019-11-06 05:36] LABS: Hematocrit 26 % (35-47); Hemoglobin 8.7 g/dL (12.0-16.0); Mean Corpuscular HGB Conc 34 g/dL (31-36); Mean Corpuscular Hemoglobin 32 pg (27-31); Mean Corpuscular Volume 94 fL (80-97); Mean Platelet Volume 6.8 fL (7.4-10.4); Platelet Count 360 10^3/uL (150-450); Red Blood Count 2.73 10^6 /uL (3.70-4.87); Red Cell Distribution Width 19 % (10-15); White Blood Count 25.8 10^3/uL (3.5-10.8)
[2019-11-06 05:56] LABS: Albumin 3.2 g/dL (3.2-5.2); Albumin/Globulin Ratio 1.7 (1-3); BUN/Creatinine Ratio 38.5 (8-20); Calcium 7.9 mg/dL (8.6-10.3); EGFR African American 61.4 (>60); EGFR Non-African American 50.7 (>60); Globulin 1.9 g/dL (2-4); Magnesium 2.8 mg/dL (1.9-2.7); Phosphorus 5.1 mg/dL (2.5-5.0); Potassium 4.7 mmol/L (3.5-5.0); Total Bilirubin 0.6 mg/dL (0.2-1.0); Total Protein 5.1 g/dL (6.4-8.9)
[2019-11-06 07:09] LABS: ABS Lymphocytes 0.6 10^3/ul (1.0-4.8); ABS Monocytes 1.3 10^3/ul (0-0.8); ABS Neutrophils 23.9 10^3/ul (1.5-7.7); ABS Nucleated RBC 0.2 10^3/ul; Lymphocyte % 2.3 %
[2019-11-06 07:10] LABS: Nucleated Red Blood Cells % 0.6
[2019-11-06] MEDS: Mometasone/Formoter 200/5 MDI INH SCH ×2 (07:38→19:40)
[2019-11-06] MEDS: Pantoprazole 80 mg in NS BAG 80 MG/250 ML BAG IV SCH (07:41)
[2019-11-06] MEDS: Acetaminophen IV 1 GM/100ML 100 ML IVPB PRN ×2 (07:53→16:36)
[2019-11-06 16:44] LABS: ABS Lymphocytes 0.7 10^3/ul (1.0-4.8); ABS Neutrophils 14.9 10^3/ul (1.5-7.7); Hematocrit 24 % (35-47); Hemoglobin 8.1 g/dL (12.0-16.0); Lymphocyte % 4.2 %; Mean Corpuscular HGB Conc 34 g/dL (31-36); Mean Corpuscular Hemoglobin 32 pg (27-31); Mean Corpuscular Volume 94 fL (80-97); Mean Platelet Volume 6.7 fL (7.4-10.4); Nucleated Red Blood Cells % 0.1; Platelet Count 326 10^3/uL (150-450); Red Blood Count 2.56 10^6 /uL (3.70-4.87); Red Cell Distribution Width 20 % (10-15); White Blood Count 16.5 10^3/uL (3.5-10.8)
[2019-11-06 16:46] LABS: Albumin 3.1 g/dL (3.2-5.2); Albumin/Globulin Ratio 1.7 (1-3); BUN/Creatinine Ratio 37.2 (8-20); Calcium 7.7 mg/dL (8.6-10.3); EGFR African American 85.6 (>60); EGFR Non-African American 70.7 (>60); Globulin 1.8 g/dL (2-4); Magnesium 2.3 mg/dL (1.9-2.7); Total Bilirubin 0.7 mg/dL (0.2-1.0); Total Protein 4.9 g/dL (6.4-8.9)
[2019-11-06] MEDS: Pantoprazole VIAL 40 MG VIAL IV SCH (20:16)
[2019-11-07] MEDS: Lactated Ringers 1000 ml BAG 1,000 ML IV SCH (03:27)
[2019-11-07] MEDS: ZOSYN 3.375 GM Q8H per EXTENDED INFUSION IV SCH ×3 (04:26→20:44)
[2019-11-07 04:52] LABS: ABS Lymphocytes 0.7 10^3/ul (1.0-4.8); ABS Monocytes 0.6 10^3/ul (0-0.8); Hematocrit 22 % (35-47); Hemoglobin 7.7 g/dL (12.0-16.0); Mean Corpuscular HGB Conc 35 g/dL (31-36); Mean Corpuscular Hemoglobin 33 pg (27-31); Mean Corpuscular Volume 94 fL (80-97); Mean Platelet Volume 6.8 fL (7.4-10.4); Nucleated Red Blood Cells % 0.2; Platelet Count 268 10^3/uL (150-450); Red Blood Count 2.37 10^6 /uL (3.70-4.87); Red Cell Distribution Width 19 % (10-15); White Blood Count 10.4 10^3/uL (3.5-10.8)
[2019-11-07 05:16] LABS: Albumin 2.7 g/dL (3.2-5.2); Albumin/Globulin Ratio 1.5 (1-3); BUN/Creatinine Ratio 31.8 (8-20); Calcium 7.3 mg/dL (8.6-10.3); EGFR African American 103.7 (>60); EGFR Non-African American 85.7 (>60); Globulin 1.8 g/dL (2-4); Magnesium 1.9 mg/dL (1.9-2.7); Phosphorus 2.3 mg/dL (2.5-5.0); Potassium 3.7 mmol/L (3.5-5.0); Total Bilirubin 0.6 mg/dL (0.2-1.0); Total Protein 4.5 g/dL (6.4-8.9)
[2019-11-07] MEDS ORDERED: Magnesium Sulfate IV 1GM/100ML 1 GM/100 ML BAG IV ONE (07:21)
[2019-11-07] MEDS: Mometasone/Formoter 200/5 MDI INH SCH ×2 (08:06→19:54)
[2019-11-07] MEDS: Pantoprazole VIAL 40 MG VIAL IV SCH ×2 (08:13→20:46)
[2019-11-07] MEDS: Norepinephrine 16MCG/ML IVPRE 4,000 MCG/250 ML BAG IV SCH ×3 (08:13→20:17)
[2019-11-07] MEDS ORDERED: Furosemide 40 mg/4 ml IV VIAL ONE (10:22)
[2019-11-07] MEDS: Lidocaine PATCH 5% PATCH TRANSDERM SCH (13:39)
[2019-11-07 19:30] LABS: Adenovirus F40/41 Negative (Negative); Astrovirus Negative (Negative); Cryptosporidium species Negative (Negative); Cyclospora cayetanensis Negative (Negative); Entamoeba histolytica Negative (Negative); Enteroaggregative E.coli(EAEC) Negative (Negative); Enteropathogenic Ecoli(EPEC) Negative (Negative); Enterotoxigenic Ecoli(ETEC) Negative (Negative); Norovirus GI/GII Negative (Negative); Plesiomonas shigelloides Negative (Negative); Salmonella species Negative (Negative); Sapovirus Negative (Negative); Shiga toxin producing E. coli Negative (Negative); Shigella/Enteroinvasive E.coli Negative (Negative); Specimen Source STOOL; Vibrio cholerae Negative (Negative); Yersinia species Negative (Negative)
[2019-11-07] MEDS ORDERED: Lidocaine Patch REMOVE PATCH PATCH OFF SCH (21:00)
[2019-11-08] MEDS ORDERED: Lorazepam PYXIS KEY PRN ×2 (01:53→06:10)
[2019-11-08] MEDS ORDERED: LORazepam 2 mg VIAL 1 ml IV PUSH ONE (01:53)
[2019-11-08] MEDS ORDERED: LORazepam 2 mg VIAL 1 ml ONE (01:57)
[2019-11-08] MEDS ORDERED: Lorazepam PYXIS KEY ONE (01:57)
[2019-11-08] MEDS ORDERED: Flumazenil 0.5 mg/5 ml 0.1 MG/ML 5 ml VIAL ONE (02:17)
[2019-11-08] MEDS ORDERED: Furosemide 40 mg/4 ml IV VIAL IV ONE (03:11)
[2019-11-08] MEDS ORDERED: Flumazenil 0.5 mg/5 ml 0.1 MG/ML 5 ml VIAL IV ONE (03:26)
[2019-11-08 03:33] LABS: ABS Lymphocytes 0.8 10^3/ul (1.0-4.8); ABS Monocytes 0.5 10^3/ul (0-0.8); ABS Neutrophils 11.1 10^3/ul (1.5-7.7); ABS Nucleated RBC 0.1 10^3/ul; Eosinophil % 0.3 %; Hematocrit 24 % (35-47); Hemoglobin 8.1 g/dL (12.0-16.0); Lymphocyte % 6.2 %; Mean Corpuscular HGB Conc 33 g/dL (31-36); Mean Corpuscular Hemoglobin 32 pg (27-31); Mean Corpuscular Volume 95 fL (80-97); Nucleated Red Blood Cells % 0.8; Platelet Count 288 10^3/uL (150-450); Red Blood Count 2.57 10^6 /uL (3.70-4.87); Red Cell Distribution Width 19 % (10-15); White Blood Count 12.5 10^3/uL (3.5-10.8)
[2019-11-08] MEDS: ZOSYN 3.375 GM Q8H per EXTENDED INFUSION IV SCH (03:33)
[2019-11-08] MEDS: Norepinephrine 16MCG/ML IVPRE 4,000 MCG/250 ML BAG IV SCH (04:00)
[2019-11-08 04:13] LABS: Calcium 7.4 mg/dL (8.6-10.3); Magnesium 1.7 mg/dL (1.9-2.7); Potassium 3.2 mmol/L (3.5-5.0); Total Bilirubin 0.4 mg/dL (0.2-1.0)
[2019-11-08 04:19] LABS: Albumin/Globulin Ratio 1.4 (1-3); BUN/Creatinine Ratio 22.2 (8-20); EGFR African American 81.9 (>60); EGFR Non-African American 67.7 (>60); Globulin 2.1 g/dL (2-4); Phosphorus 3.1 mg/dL (2.5-5.0); Total Protein 5.1 g/dL (6.4-8.9)
[2019-11-08] MEDS ORDERED: Magnesium Sulfate 2 gm BAG 2 GM/50 ML BAG IVPB ONE (05:02)
[2019-11-08] MEDS ORDERED: LORazepam 2 mg VIAL 1 ml IV PUSH PRN (06:10)
[2019-11-08 06:31] VITALS: BP 107/58
[2019-11-08] MEDS: KCL 20 MEQ/100 ML IVPREMIX 20 MEQ/100 ML BAG IV SCH ×2 (07:04→08:53)
[2019-11-08] MEDS: Pantoprazole VIAL 40 MG VIAL IV SCH (08:54)
[2019-11-08] MEDS: Mometasone/Formoter 200/5 MDI INH SCH (09:06)
[2019-11-08] MEDS: Lidocaine PATCH 5% PATCH TRANSDERM SCH (09:07)
== END 2019-11-08 11:24 | disposition expired | DRG 871 ==
LOC: ED 12:49 → ICU 16:39
PROVIDERS: ADMIT Internal Medicine; ATTEND Internal Medicine